=== PATIENT | female | born 1960 | race Caucasian/White ===

== ENCOUNTER 2022-04-01 15:23 | Outpatient (CLI) | payer OTHER, SELFPAY ==
--- OUTSIDE RECORDS SUMMARY | 2022-04-01 08:17 | XMS_ITS | Encounter Summary ---
:1960 Author Organization [facility] Address [address], [place] [address] Care Team Providers Name Role Phone Unavailable Primary Care Provider Unavailable Reason for Visit Procedure/Equipment (Routine) - Incomplete Specialty Diagnoses / Procedures Referred By Contact Refer red To Contact Procedures Provider, Foreign Images Foreign Image(S) Mammogram [address] [place] [address] Referral ID Status Reason Start Date Expiration Date Visits V isits Requested Authorized [id number] Incomplete 04/04/2017 07/04/2018 1 1 Encounter Details Date Type Department Care Team Description 06/01/2012 Imaging 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 If the results were provided, they will be located on the Me almas tab in the patient's chart. Foreign Images Provider RAD NON-REPORTABLES Performing Organization Address City/State/ZIP Code Phon e Number POCT PN POCT documented in this encounter Visit Diagnoses Not on filedocumented in this encounter
--- OUTSIDE RECORDS SUMMARY | 2022-04-01 08:17 | XMS_ITS ---
:1960 Author Care Team Providers Name Role Phone Jazzy Pino Primary Care Provider Unavailable Allergies Code Code System Name Reaction Severity Status Onset NKDA ? Medications Name Status Start Date Stop Date ? ? Baby Aspirin Active ? Not available calcium Active ? Not available Climara 0.025 mg/24 hr transdermal patch Active ? Not available estradiol 0.5 mg tablet Active ? Not avai lable Fish Oil Completed ? 02/02/2021 Multi Vitamin Active ? Not available simvastatin 40 mg tablet Completed ? 021 valacyclovir 500 mg tablet Active ? Not a vailable Notes: Estrogen OTC Problems Name Status Onset Date Source ? Hyperlipidemia Active ? ? Cyst of Ovary Active ? ? Atypical Glandular Cells on Cervical Papanicolaou Smear Active ? History Procedures Date Name Performed by ? 02/15/2013 Hysterectomy NOS Information not avai lable Notes: *Surgery Date: 02/15/2013 ? Removal of Ovary(s) Information not avai lable Notes: *Surgery Date: 02/15/13 *Notes: L side ? Endometrial Ablation Information not regina ilable Notes: *Surgery Date: 01/21/06 *Notes: N ovasure ? Gynecological Laparoscopy NEC Informatio n not available Notes: *Surgery Date: 1991 ? Ligation of Bilateral Fallopian Tubes In formation not available Notes: *Surgery Date: 1988 ? Salpingectomy NOS Information not avai lable Notes: *Surgery Date: 02/15/13 *Notes: b ilat 07/03/2020 MAMMO, Screening, Bilateral Information not available Results Lab Results None recorded. Past Encounters 02/02/2021 Gynecologic Examination; Menopausal Synd joya; Ulcer of Mouth Jazzy Pino MD: [facility], [address], [place] [address], Ph. Social History Tobacco Smoking Status Never Smoker Vaccine List Vaccine Type influenza, injectable, quadrivalent 04/17/2020 Notes: No Covid vaccines per pt Plan of Care Reminders Provider Appointments None recorded. ? ? Lab None recorded. ? ? Referral None recorded. ? ? Procedures None recorded. ? ? Surgeries None recorded. ? ? Imaging None recorded. ? ? Vitals 02/02/2021 09:00AM G_ANNUAL EXAM Height Weight BMI Blood Pressure 5 ft 2.25 in 147.2 lbs 26.7 kg/m2 122/76 mm[Hg] 08/30/2019 Height Weight BMI Blood Pressure 5 ft 4.44 in 151 lbs 25.52 kg/m2 122/74 mm[Hg] 04/07/2018 Height Weight BMI Blood Pressure 5 ft 2.52 in 153 lbs 27.54 kg/m2 126/74 mm[Hg] 02/28/2017 Height Weight BMI Blood Pressure 5 ft 2.52 in 156 lbs 28.08 kg/m2 125/81 mm[Hg] 11/07/2015 Height Weight BMI Blood Pressure 5 ft 2.04 in 147 lbs 26.89 kg/m2 148/86 mm[Hg] 07/25/2014 Height Weight BMI Blood Pressure 5 ft 2.76 in 154 lbs 27.50 kg/m2 118/72 mm[Hg]
--- OUTSIDE RECORDS SUMMARY | 2022-04-01 08:17 | XMS_ITS | Encounter Summary ---
:1960 Author Organization [facility] Address [address] [address] Care Team Providers Name Role Phone Unavailable Primary Care Provider Unavailable Reason for Visit Procedure/Equipment (Routine) - Incomplete Specialty Diagnoses / Procedures Referred By Contact Refer red To Contact Procedures Provider, Foreign Images Foreign Image(S) Mammogram [address] [place] [address] Referral ID Status Reason Start Date Expiration Date Visits V isits Requested Authorized [id number] Incomplete 04/04/2017 07/04/2018 1 1 Encounter Details Date Type Department Care Team Description 03/17/2010 Imaging 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 documented in this encounter Results Foreign Image(S) Mammogram (03/17/2010 2:00 PM CDT) Specimen (Source) Anatomical Location Collection Method / [...]
--- OUTSIDE RECORDS SUMMARY | 2022-04-01 08:17 | XMS_ITS | Clinical Summary ---
:1960 Author Organization [facility] Address [address] [place] [address] Care Team Providers Name Role Phone Unavailable Primary Care Provider Unavailable Source Comments You are receiving this document as you are listed as the primary care provider,follow-up provider, or the patient has been referred to you for consultation.This is in compliance with the Medicare and Medicaid EHR Incentive Program,which states Providers who transition their patient to another setting of careor provider of care or refers their patient to another provider of care shouldprovide summarycare record for each transition of care or referral. [facility] Family History Medical History Relation Name Comments Cancer, Breast Negative Family History Social History Tobacco Use Types Packs/Day Years Used Date Smoking Tobacco: Never Assessed Sex Assigned at Date Recorded Not on file Plan of Treatment Health Maintenance Due Date Last Done Comments Cervical Cancer Screening 1960 Due Colon Cancer Screening Plan 1960 Due Hep C Screening (Preventive 1960 Services) COVID-19 Vaccine (#1) 04/15/1962 HIV Screening (Preventive 1977 Services) Adult Preventive Visit 10/14/1979 Cholesterol 2006 Zoster/Shingles (1 of 2) 10/14/2011 DTaP/Tdap/Td (2 - Tdap) 11/13/2020 11/13/2010 Mammogram 07/02/2021 07/02/2020, 04/10/2019, 04/24/2018, Additional history exists Influenza (#1) 2022 05/25/2020 HepA Aged Out No longer eligib le based on patient 's age to complete this topic HepB Aged Out No longer eligib le based on patient 's age to complete this topic Hib Aged Out No longer eligib le based on patient 's age to complete this topic IPV (Polio) Aged Out No longer eligib le based on patient 's age to complete this topic MCV4 Aged Out No longer eligib le based on patient 's age to complete this topic Pneumococcal Aged Out No longer eligib le based on patient 's age to complete this topic Insurance Payer Benefit Plan / Subscriber ID Effective Dates Phone Addre ss Type Group ÓSCAR CANTRELL [id number] 2020-Prese [phone] [address] [place] [address]
--- OUTSIDE RECORDS SUMMARY | 2022-04-01 08:17 | XMS_ITS | Clinical Summary ---
:1960 Author Organization [facility] [place] [address] Care Team Providers Name Role Phone Ryan Gimenez MD Primary Care Provider Allergies No known active allergies Medications Medication Sig Dispensed Refills Start Date End Date Status IBUPROFEN 200 MG TAB four every 4-6 0 08/16/2007 Active hours as needed mv,Ca,yfg-UW-luhvhe Take by mouth. 0 02/08/2013 Active no.187 (ESTROVEN MAXIMUM STRENGTH) 200 mcg Tab simvastatin (ZOCOR) 40 TAKE 1 TABLET ONCE 90 tablet 0 09/26/19 14 Active mg tablet DAILY WITH EVENING MEAL naproxen (NAPROSYN) Take 1 tab by 60 tablet 0 05/28/2015 Active 500 mg tablet mouth with breakfast, and 1 tab with dinner (twice a day with food) for 7-10 days, then use as needed. naproxen (NAPROSYN) Take 1 tab with 60 tablet 0 05/28/2015 Active 500 mg tablet breakfast, and 1 tab with dinner (twice a day with food) for 7-10 days, then as needed Active Problems Problem Noted Date Vitamin D deficiency 12/18/2010 Mixed hyperlipidemia 11/13/2010 Cervicalgia 08/16/2007 Excessive or frequent menstruation 01/14/2006 Immunizations Name Administration Dates Next Due Tdap 11/13/2010 Family History Medical History Relation Name Comments Diabetes Father Heart Disease Maternal Grandmother Relation Name Status Comments Father Maternal Grandmother Social History Tobacco Use Types Packs/Day Years Used Date Never Smoker Alcohol Use Standard Drinks/Week Comments Yes 2.5 (1 standard drink = 0.6 oz pure alco hol) 3 glasses wine Sex Assigned at Date Recorded Not on file Obstetrics History Last Filed Vital Signs Vital Sign Reading Time Taken Comments Blood Pressure 132/70 06/16/2015 1:54 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 Pulse 71 06/16/2015 1:54 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 Temperature 36.6 ??C (97.8 ??F) 02/08/2013 3:55 PM CDT Respiratory Rate 18 06/16/2015 1:54 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 Oxygen Saturation - - Inhaled Oxygen Concentration - - Weight 68.9 kg (152 lb) 02/08/2013 3:55 PM CDT Height 158.8 cm (5' 2.5) 02/08/2013 3:55 PM CDT Body Mass Index 27.36 02/08/2013 3:55 PM CDT Plan of Treatment Health Maintenance Due Date Last Done Comments COVID-19 vaccine series (#1) 04/15/1962 Depression screening for age 12+ 1973 BMI (ht and wt on same day) for 10/14/1979 age 18+ Hepatitis C screening for age 0310/14/1979 18-79 Zoster (shingles) series for age 0310/14/2011 50+ (1 of 2) Pap test for age 21-65 01/15/2013 01/15/2010 Mammogram for age 45-75 08/18/2013 08/18/2012 (Completed ou tside of [facility]), 01/15/2010 Lipids for age 45-75 12/22/2016 12/23/2011, 11/13/2010, 09/15/2009, Additional history exists Tetanus booster 11/13/2020 11/13/2010 Influenza for age 50-64 03/18/2022 Colonoscopy through age 75 10/16/2022 10/16/2012 (Completed outside of [facility]) Tdap Completed 11/13/2010 Results Not on filefrom Last 3 Months Insurance Payer Benefit Plan / Subscriber ID Effective Dates Phone Addre ss Type Group [facility] [id number] 2019-Present [address] KAMILAH SCHNEIDER [address] Care 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
--- OUTSIDE RECORDS SUMMARY | 2022-04-01 08:17 | XMS_ITS | Encounter Summary ---
:1960 [facility] Address [address], [place] [address] Care Team Providers Name Role Phone Unavailable Primary Care Provider Unavailable Reason for Visit Reason Comments Appt. Needed Encounter Details Date Type Department Care Team Description 09/01/2012 Telephone Specialty [facility] [address] Alvarado MD Appt. Needed Gastroenterology [address] [place] [address] [place], [place] [id number] [phone] Social History Tobacco Use Types Packs/Day Years Used Date Smoking Tobacco: Never Assessed Sex Assigned at Date Recorded Not on file documented as of this encounter Nursing Notes Sidney Doherty - 09/05/2012 10:25 AM CST received order from Dr Guy's office at [facility] called pt and LVM please see order Toña Main RN - 09/04/2012 3:56 PM CST Noemy from Dr. Pino's office called back and stated they did not do referral orders since they are a specialty clinic and order should come from primary. Spoke to pt who was very upset at this, stated Dr. Pino was the one who wanted her to have the procedure. She will speak directly to Dr. Pino and see what can be done about obtaining an order. Toña Main RN - 09/04/2012 2:52 PM CST Call placed to Dr. Pino's office and msg left with her nurse, our fax # and scheduling # given. They will fax when available or call if any questions. DEVELOPER Precious Vasquez - 09/01/2012 3:56 PM CST Pt contacted GI dept to schedule a screening colonoscopy. Order needed from Dr. Jazzy Pino, [facility] in [place] [phone]. DEVELOPER documented in this encounter Plan of Treatment Not on filedocumented as of this encounter Visit Diagnoses Not on filedocumented in this encounter
--- OUTSIDE RECORDS SUMMARY | 2022-04-01 08:17 | XMS_ITS | Encounter Summary ---
:1960 Author Organization [facility] Address [address], [place] [address] Care Team Providers Name Role Phone Unavailable Primary Care Provider Unavailable Reason for Visit Procedure/Equipment (Routine) - Incomplete Specialty Diagnoses / Procedures Referred By Contact Refer red To Contact Diagnoses Visit for screening mammogram Jazzy Pino MD Procedures MM Mammogram Screening Bilat W 3D Jj W CAD MM Mammogram Screening Bilat W CAD [address] [place] [address] Referral ID Status Reason Start Date Expiration Date Visits V isits Requested Authorized [id number] Incomplete 02/15/2018 05/17/2019 1 1 Encounter Details Date Type Department Care Team Description 04/13/2018 Imaging [facility] Event Mammogra phy Jazzy Pino MD Visit for screening [address] [facility] [address] [place] [address] [place] [address] [phone] Social History Tobacco Use Types Packs/Day Years Used Date Smoking Tobacco: Never Assessed Sex Assigned at Date Recorded Not on file documented as of this encounter Plan of Treatment Not on filedocumented as of this encounter Visit Diagnoses Diagnosis Visit for screening mammogram Other screening mammogram documented in this encounter
--- OUTSIDE RECORDS SUMMARY | 2022-04-01 08:17 | XMS_ITS | Encounter Summary ---
:1960 Author Organization [facility] Address [address] [address] Care Team Providers Name Role Phone Unavailable Primary Care Provider Unavailable Reason for Visit Procedure/Equipment (Routine) - Incomplete Specialty Diagnoses / Procedures Referred By Contact Refer red To Contact Diagnoses Visit for screening mammogram Jazzy Pino MD Procedures MM Mammogram Screening Bilat W CAD [address] [place] [address] Referral ID Status Reason Start Date Expiration Date Visits V isits Requested Authorized [id number] Incomplete 02/11/2017 05/13/2018 1 1 Encounter Details Date Type Department Care Team Description 03/29/2017 Imaging [facility] Event Mammogra phy Jazzy Pino MD Visit for screening [facility] [address] [place] [address] [place] [address] [phone] Social History Tobacco Use Types Packs/Day Years Used Date Smoking Tobacco: Never Assessed Sex Assigned at Date Recorded Not on file documented as of this encounter Plan of Treatment Not on filedocumented as of this encounter Procedures Procedure Name Priority Date/Time Associated Diagnosis Comme nts MM MAMMOGRAM Routine 03/29/2017 9:33 AM Visit for screening Re sults for this SCREENING BILAT W CDT mammogram procedure are in CAD the results section. documented in this encounter Results MM Mammogram Screening Bilat W CAD (03/29/2017 9:33 AM CDT) Anatomical Region Laterality Modality Breast Bilateral Mammography Specimen (Source) Anatomical Location Collection Method / Collectio n Time Received Time / Laterality Volume Impressions 04/04/2017 10:40 AM CDT : ACR BI-RADS Category 1: Negative RECOMMENDATION: Follow Up Imaging in 12 months - Bilateral The results and recommendations of this examination will be communicated to the patient. Narrative 04/04/2017 10:40 AM CDT MM MAMMOGRAM SCREENING BILAT W CAD performed on 03/29/17 Compared to: 12/17/2015 Foreign Image(S) Mammogram, 06/01/2012 Foreign Image(S) Mammogram, and 04/27/2011 Forei gn Image(S) Mammogram FINDINGS: Bilateral screening mammogram was performed with the assistance of Computer-Aided Detection. The breasts have scattered areas of fibroglandular density. There is no radiographic evidence of mal ignancy. ?? Jazzy Pino MD RAD [place] documented in this encounter Visit Diagnoses Diagnosis Visit for screening mammogram Other screening mammogram documented in this encounter
--- OUTSIDE RECORDS SUMMARY | 2022-04-01 08:17 | XMS_ITS | Encounter Summary ---
:1960 Author Organization [facility] Address [address], [place] [address] Care Team Providers Name Role Phone Unavailable Primary Care Provider Unavailable Reason for Visit Procedure/Equipment (Routine) - Incomplete Specialty Diagnoses / Procedures Referred By Contact Refer red To Contact Diagnoses Visit for screening mammogram Jazzy Pino MD Procedures MM Mammogram Screening Bilat W 3D Jj W CAD MM Mammogram Screening Bilat W CAD [address] [place] [address] Referral ID Status Reason Start Date Expiration Date Visits V isits Requested Authorized [id number] Incomplete 02/15/2018 05/17/2019 1 1 Encounter Details Date Type Department Care Team Description 04/24/2018 Imaging [facility] Event Mammogra phy Jazzy Pino MD Visit for screening [address] [facility] [address] [place] [address] [place] [address] [phone] Social History Tobacco Use Types Packs/Day Years Used Date Smoking Tobacco: Never Assessed Sex Assigned at Date Recorded Not on file documented as of this encounter Plan of Treatment Not on filedocumented as of this encounter Procedures Procedure Name Priority Date/Time Associated Diagnosis Comme nts MM MAMMOGRAM Routine 04/24/2018 3:23 PM Visit for screening Re sults for this SCREENING BILAT W CDT mammogram procedure are in 3D JJ W CAD the results section. documented in this encounter Results MM Mammogram Screening Bilat W 3D Jj W CAD (04/24/2018 3:23 PM CDT) Anatomical Region Laterality Modality Breast Bilateral Mammography Specimen (Source) Anatomical Location Collection Method / Collectio n Time Received Time / Laterality Volume Impressions 04/25/2018 9:20 AM CDT : ACR BI-RADS Category 1: Negative RECOMMENDATION: Follow Up Imaging in 12 months - Bilateral The results and recommendations of this examination will be communicated to the patient. Narrative 04/25/2018 9:20 AM CDT MM MAMMOGRAM SCREENING BILAT W 3D JJ W CAD performed on 04/24/18 Compared to: 03/29/2017 MM Mammogram Scr eening Bilat W CAD, 12/17/2015 Foreign Image(S) Mammogram, and 06/01/20 Foreign Image(S) Mammogram FINDINGS: Bilateral screening mammogram was performed with the assistance of Computer-Aided Detection and breast t omosynthesis. The breasts have scattered areas of fibroglandular densit y. There is no radiographic evidence of mal ignancy. ?? Jazzy Pino MD RAD [place] documented in this encounter Visit Diagnoses Diagnosis Visit for screening mammogram Other screening mammogram documented in this encounter
--- OUTSIDE RECORDS SUMMARY | 2022-04-01 08:17 | XMS_ITS | Encounter Summary ---
:1960 Author Organization [facility] Address [address], [place] [address] Care Team Providers Name Role Phone Unavailable Primary Care Provider Unavailable Reason for Visit Procedure/Equipment (Routine) - Incomplete Specialty Diagnoses / Procedures Referred By Contact Refer red To Contact Procedures Provider, Foreign Images Foreign Image(S) Mammogram [address] [place] [id number] Referral ID Status Reason Start Date Expiration Date Visits V isits Requested Authorized [id number] Incomplete 04/04/2017 07/04/2018 1 1 Encounter Details Date Type Department Care Team Description 12/17/2015 Imaging 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 documented in this encounter Results Foreign Image(S) Mammogram (12/17/2015 2:00 PM CDT) Specimen (Source) Anatomical Location [...]
--- OUTSIDE RECORDS SUMMARY | 2022-04-01 08:17 | XMS_ITS | Encounter Summary ---
:1960 Author Organization [facility] Address [address], [place] [address] Care Team Providers Name Role Phone Unavailable Primary Care Provider Unavailable Reason for Visit Procedure/Equipment (Routine) - Incomplete Specialty Diagnoses / Procedures Referred By Contact Refer red To Contact Diagnoses Visit for screening mammogram Jazzy Pino MD Procedures MM Mammogram Screening Bilat W 3D Jj W CAD MM Mammogram Screening Bilat W CAD [address] [place] [address] Referral ID Status Reason Start Date Expiration Date Visits V isits Requested Authorized [id number] Incomplete 01/24/2019 04/24/2020 1 1 Encounter Details Date Type Department Care Team Description 04/10/2019 Ancillary Procedure [facility] Event Jazzy Pino Visit f or screening Mammography MD Claire mammogram [address] [facility] [address] [place] [address] [phone] Social History Tobacco Use Types Packs/Day Years Used Date Smoking Tobacco: Never Assessed Sex Assigned at Date Recorded Not on file documented as of this encounter Plan of Treatment Not on filedocumented as of this encounter Procedures Procedure Name Priority Date/Time Associated Diagnosis Comme nts MM MAMMOGRAM Routine 04/10/2019 8:44 AM Visit for screening Re sults for this SCREENING BILAT W CDT mammogram procedure are in 3D JJ W CAD the results section. documented in this encounter Results MM Mammogram Screening Bilat W 3D Jj W CAD (04/10/2019 8:44 AM CDT) Anatomical Region Laterality Modality Breast Bilateral Mammography Specimen (Source) Anatomical Location Collection Method / Collectio n Time Received Time / Laterality Volume Impressions 04/13/2019 3:33 PM CDT : ACR BI-RADS Category 1: Negative RECOMMENDATION: Follow Up Imaging in 12 months - Bilateral The results and recommendations of this examination will be communicated to the patient. Narrative 04/13/2019 3:33 PM CDT MM MAMMOGRAM SCREENING BILAT W 3D JJ W CAD performed on 04/10/19 Compared to: 04/24/2018 MM Mammogram Scr eening Bilat W 3D Jj W CAD and 03/29/2017 MM Mammogram Screening Bilat W CAD FINDINGS: Bilateral screening mammogram was performed with [...]
[2022-04-01 14:28] LABS: Aspartate Amino Transferase* 27 U/L (12-35); Cholesterol* 219 mg/dL (90-199); HDL Cholesterol* 32 mg/dL (>=50); LDL Cholesterol Calculated 126 mg/dL (<100); Triglycerides* 305 mg/dL (40-149)
== END 2022-04-01 15:24 | disposition home or self-care (01) ==
PROVIDERS: PCP Emergency Medicine; Visit Provider Emergency Medicine
DX: Z00.00 Encounter for general adult medical examination without abnormal findings (principal); E11.9 Type 2 diabetes mellitus without complications; E78.5 Hyperlipidemia, unspecified; E78.1 Pure hyperglyceridemia; R74.01 Elevation of levels of liver transaminase levels
CPT/HCPCS: 80061; 84450

== ENCOUNTER 2023-04-13 10:40 | Outpatient (CLI) | payer OTHER, SELFPAY | END 2023-04-13 10:41 | disposition home or self-care (01) | PROVIDERS: PCP Emergency Medicine; Visit Provider Emergency Medicine | DX: Z00.00 Encounter for general adult medical examination without abnormal findings (principal); E78.1 Pure hyperglyceridemia; E78.5 Hyperlipidemia, unspecified; Z13.1 Encounter for screening for diabetes mellitus | CPT/HCPCS: 80048; 80061 ==

== ENCOUNTER 2023-04-26 14:27 | Outpatient (CLI) | payer OTHER, SELFPAY ==
[2023-04-26 15:51] VITALS: BP 134/74; PULSE 85; RESP 20
[2023-04-26] MEDS: PERFLUTREN LIPID MICROSPHERES 2 ML VIAL IV (15:53)
--- NOTE | 2023-04-26 16:02 | W.PM.STED ---
Stress Test Note Date Date Seen: 04/26/23 Date of test: 04/26/23 Providers Primary care provider: Poppy Beasley Stress test physician: Suzi Alcaraz Stress Test Note Stress test ordered: Stress Echo Indication for test: Shortness of breath Stress test medicine: Definity Results discussion: Resting EKG: Sinus rhythm, 82 beats per minute. Some artifact. No ischemic change. Resting blood pressure: 144/86. Stress test: Patient was exercised on the treadmill following standard Jesse protocol. Test was terminated due to patient becoming significantly dyspneic. She notes that she had no chest pain with this level of exercise but if she would have continued to push herself, would have gotten some of the right chest pain that she has been experiencing. Again, patient no chest pain today. Definity did need to be used for this test. She exercised to 8 minutes 11 seconds achieving 9.9 Mets. She had a maximum heart rate of 138 beats per minute which was 102% of a calculated target heart rate of 135. She had a maximum blood pressure of 154/84. Rate pressure product was 21,252. Patient did have ST segment changes inferiorly and lateral precordial leads that were concerning in nature for ischemic change. These had nearly resolved by time of discharge. They seem to subside as her sense of shortness of breath subsided. Echo images are pending. Impression: Subjectively equivocal but objectively positive EKG portion of this stress test. Follow up suggested: Patient states she has a follow-up echo scheduled, she should complete this. Her ordering physician should have a test results tomorrow or the day after. She is aware to limit activity to not push significant cardiopulmonary stress. She is discharged from here in stable condition. Await echo reading for full formal diagnostic report.
== END 2023-04-26 15:54 | disposition home or self-care (01) ==
LOC: STRESS 14:28
PROVIDERS: PCP Emergency Medicine; Visit Provider Family Medicine
DX: R06.02 Shortness of breath (principal)
CPT/HCPCS: 93016; 93325; 93351; Q9957

== ENCOUNTER 2023-05-24 07:08 | Outpatient (CLI) | payer OTHER, SELFPAY | END 2023-05-24 07:09 | disposition home or self-care (01) | LOC: OP CLINIC 07:08 | PROVIDERS: PCP Emergency Medicine; Visit Provider Surgery | DX: Z53.09 Procedure and treatment not carried out because of other contraindication (principal); R06.02 Shortness of breath ==

== ENCOUNTER 2023-05-27 09:54 | Outpatient (CLI) | payer OTHER, SELFPAY | END 2023-05-27 09:55 | disposition home or self-care (01) | LOC: RAD 09:55 | PROVIDERS: PCP Emergency Medicine; Visit Provider Emergency Medicine | DX: R06.02 Shortness of breath (principal); I34.0 Nonrheumatic mitral (valve) insufficiency; I35.1 Nonrheumatic aortic (valve) insufficiency | CPT/HCPCS: 93306 ==

== ENCOUNTER 2023-07-07 13:12 | Outpatient (CLI) | payer OTHER, SELFPAY | END 2023-07-07 13:13 | disposition home or self-care (01) | LOC: NFLDREF 07-08 11:31 | PROVIDERS: PCP Emergency Medicine; Referring Provider Emergency Medicine; Visit Provider Physician Assistant Medical | DX: R30.0 Dysuria (principal); N39.0 Urinary tract infection, site not specified | CPT/HCPCS: 87086; 87186 ==

== ENCOUNTER 2023-07-20 13:17 | Outpatient (CLI) | payer OTHER, SELFPAY ==
--- NOTE | 2023-07-20 13:30 | CRLHL7_ITS ---
For Patients: As a result of the Century Cures Act, medical imaging exams and procedure reports are released immediately into your electronic medical record. You may view this report before your referring provider. If you have questions, please contact your health care provider. DXA BONE MINERAL DENSITY STUDY Reason for exam: Family history osteoporosis, screening. Current height (in): 62. Weight (lb): 140. Menopause age: 62. Ethnicity: White. 1. Have you had a previous hip or vertebral fracture? No. 2. Have you had any fractures during your adult life which did not result from significant trauma (e.g., auto accident)? No. 3. Did either of your parents have a hip fracture? No. 4. Do you smoke? No. 5. Have you ever taken Glucocorticoids? No. 6. Do you have rheumatoid arthritis? No. 7. Do you have secondary osteoporosis? No. 8. Do you drink 3 or more alcoholic drinks per day? No. 9. Are you being treated for osteoporosis? No. 10. Have you ever taken any of the following medications: Actonel, Evista, Fosamax, Miacalcin, Reclast, Boniva, Forteo, HRT (i.e. estrogen/hormone therapy), Protelos, Prolia, Vitamin D, Calcium, other ??? please specify. ANSWER: No. 11. Do you have any of the following medical conditions: Anorexia or bulimia, asthma or emphysema, end stage renal disease, hyperparathyroidism, any seizure disorders, cancer, inflammatory bowel diseases, hysterectomy, other ??? please specify. ANSWER: No. 12. What was your maximum height (inches)? 62.5. 13. Do you perform weight bearing exercise regularly? No. 14. Do you regularly consume dairy products? Yes. 15. Do you drink caffeinated beverages? No. 16. At what age did your period start? 13. 17. Are you premenopausal? No. 18. How many full term pregnancies have you had? 3. 19. Have you ever missed your period for more than 6 months in a row (not including or menopause)? No. TECHNIQUE: Bone mineral density study was performed using the [employer]. FINDINGS: The results of the study expressed as bone mineral density (BMD) are as follows: Lumbar spine L1 to L4: BMD: 1.066 g/cm2. T-score: 0.2. Z-score: 1.7. Neck Left: BMD: 0.747 g/cm2. T-score: -0.9. Z-score: 0.4. Right: BMD: 0.718 g/cm2. T-score: -1.2. Z-score: 0.2. Total Left: BMD: 0.914 g/cm2. T-score: -0.2. Z-score: 0.8. Right: BMD: 0.905 g/cm2. T-score: -0.3. Z-score: 0.7. IMPRESSION: Osteopenia. *Comparison exams done prior to 12/2019 were performed on different unit, [employer]. FRAX 10-year Fracture Risk Major Osteoporotic Fracture: 7.8 percent Hip Fracture: 0.6 percent Reported Risk Factors: [place] () Neck BMD= 0.718, BMI = 25.6 Emigdio Simon M.D. Diagnostic Radiologist [email or web address] SONAM/Dictated by: Emigdio Simon MD @ 07/21/2023 10:50:00 AM (Electronically Signed)
--- NOTE | 2023-07-20 14:00 | CRLHL7_ITS ---
For Patients: As a result of the Cures Act, medical imaging exams and procedure reports are released immediately into your electronic medical record. You may view this report before your referring provider. If you have questions, please contact your health care provider. BILATERAL SCREENING MAMMOGRAM WITH COMPUTER-AIDED DETECTION AND TOMOSYNTHESIS TECHNIQUE: CC and MLO views were obtained. These mammographic images have been obtained using full-field digital technique. These mammographic images were interpreted with the benefit of computer-aided detection. Breast Tomosynthesis was used in this interpretation. COMPARISON FILM: 06/16/22, 07/02/20, 04/10/19. FINDINGS: There are scattered areas of fibroglandular density IMPRESSION: There is no radiographic evidence for malignancy. ASSESSMENT: BI-RADS Category 1: Negative RECOMMENDATION: Routine screening mammogram in 1 year. A lay language report of this examination will be provided to the patient. CHERYL KAM M.D. Diagnostic/Nuclear Medicine Radiologist [email or web address] CHELSEA:miki Transcribed: 3:03 p.mEric livingston/Dictated by: Chreyl Kam MD @ 07/28/2023 10:54:00 AM (Electronically Signed)
== END 2023-07-20 13:18 | disposition home or self-care (01) ==
LOC: RAD 13:19
PROVIDERS: PCP Emergency Medicine; Visit Provider Emergency Medicine
DX: Z12.31 Encounter for screening mammogram for malignant neoplasm of breast (principal); Z13.820 Encounter for screening for osteoporosis; M85.89 Other specified disorders of bone density and structure, multiple sites; Z82.62 Family history of osteoporosis
CPT/HCPCS: 77063; 77067; 77080

== ENCOUNTER 2023-09-01 11:47 | Outpatient (CLI) | payer OTHER, SELFPAY ==
--- OUTSIDE RECORDS SUMMARY | 2023-09-01 12:08 | XMS_ITS | Clinical Summary ---
Author Name Unknown Organization [facility] Address [place], [place] [address] Care Team Providers Care Adult Live In Caregiver Name Role Phone Poppy Beasley MD Primary Care Provider [phone] Allergies No known active allergies Medications Medication Sig Dispensed Refills Start Date End Date Status multivitamins-min erals-lutein (Multivitamin 50 Plus) tab tablet Take 1 Tablet by mouth once daily. 0 Active calcium carbonate/vitamin D3 (CALCIUM 600 WITH VITAMIN D3 ORAL) Take 2 Tablets by mouth once daily. 0 Active aspirin chewable 81 mg chewable tablet Chew 81 mg by mouth once daily in the evening. 0 Active atorvastatin (LIPITOR) 40 mg tabletIndications :Coronary artery disease of [place] heart with stable angina pectoris, unspecified vessel or lesion type (HC) Take 1 Tablet (40 mg) by mouth at bedtime. 30 Tablet 3 4 Active cholecalciferol (VITAMIN D3) 1,000 unit tablet Take 1,000 units by mouth once daily. 0 Active acetaminophen (TYLENOL EXTRA STRGTH) 500 mg tabletIndications :S/P CABG x 3 Take 2 Tablets (1,000 mg) by mouth every 6 hours if needed for Pain. Max acetaminophen dose: 4000mg in 24 hrs. 0 4 Active amiodarone (CORDARONE) 200 mg tabletIndications :Postoperative atrial fibrillation (HC) Take 1 Tablet (200 mg) by mouth once daily for 28 days. 28 Tablet 0 4 09/25/19 24 Active metoprolol tartrate (LOPRESSOR) 25 mg tabletIndications :S/P CABG x 3,Postoperative atrial fibrillation (HC) Take 1 Tablet (25 mg) by mouth two times daily. 60 Tablet 2 4 Active oxyCODONE (ROXICODONE) 5 mg immediate release tabletIndications :S/P CABG x 3 Take one-half to one Tablet (2.5-5 mg) by mouth every 6 hours if needed for Pain (For Moderate Pain.). 10 Tablet 0 4 Active sennosides-docusa te (SENOKOT S) (8.6-50 mg) tabletIndications :S/P CABG x 3 Take 2 Tablets by mouth 2 times daily if needed for Constipation. 0 4 Active clopidogreL (PLAVIX) 75 mg tabletIndications :S/P CABG x 3 Take 1 Tablet (75 mg) by mouth once daily. 85 Tablet 0 4 11/20/19 24 Active mv,Ca,min-FA-herb al no.187 (ESTROVEN MAXIMUM STRENGTH) 200 mcg Tab Take 1 Tablet by mouth once daily. 0 3 08/18/19 24 Discontinued(P harmacist change per medication history (E-cancel not sent)) metoprolol succinate (TOPROL XL) 25 mg Sustained-Release tabletIndications :Coronary artery disease of [place] heart with stable angina pectoris, unspecified vessel or lesion type (HC) Take 1 Tablet (25 mg) by mouth once daily. 30 Tablet 2 4 08/27/19 24 Discontinued(* IP Discontinued) Active Problems Problem Noted Date Diagnosed Date Aspiration pneumonia 08/22/2023 Postoperative atrial fibrillation 08/20/2023 S/P CABG x 3 08/18/2023 Overview: Left internal mammary artery to left anterior descending artery, sequential vein graft to OM1 and OM 3 - Dr Trent Acute blood loss anemia 08/18/2023 Coagulopathy 08/18/2023 Thrombocytopenia 08/18/2023 Angina of effort 07/27/2023 Vitamin D deficiency 12/18/2010 Mixed hyperlipidemia 11/13/2010 Cervicalgia 08/16/2007 Excessive or frequent menstruation 01/14/2006 Encounters Date Type Department Care Team Description 08/18/2023 7:26 AM MACHINE CLOTHING WORKER Anesthesia Event [facility] [address] [place] [address] Hunter Frye Jr., MD Swenson, Emily A, CRNA 08/18/2023 7:00 AM MACHINE CLOTHING WORKER - 08/18/2023 1:18 PM MACHINE CLOTHING WORKER Surgery [facility] [address] [place] [address] Troy Trent MD INTRA-OPEARTIVE PERFORMED BY DR. FRYE, STERNOTOMY, TAKEDOWN OF LEFT INTERNAL MAMMARY ARTERY, BYPASS CORONARY ARTERY X3 , ENDOSCOPIC SAPHENOUS VEIN HARVEST OF THE LEFT LEG, TEMPORARY PLACEMENT OF VENTRICLAR PACING WIRES. 08/18/2023 6:05 AM MACHINE CLOTHING WORKER - 08/27/2023 3:18 PM MACHINE CLOTHING WORKER Hospital Encounter [facility] [address] [place] [address] Troy Trent MD S/P CABG x 3 (Primary Dx); Postoperative atrial fibrillation (HC) Discharge Disposition: Home Self Care 08/18/2023 Travel 08/15/2023 9:36 AM MACHINE CLOTHING WORKER - 08/15/2023 11:59 PM MACHINE CLOTHING WORKER Hospital Encounter [facility] [address] [place] [address] Flower Beebe PA Reilly, Chelsey A Coronary artery disease, unspecified vessel or lesion type, unspecified whether angina present, unspecified whether [place] or transplanted heart 08/15/2023 Travel 08/08/2023 1:30 PM MACHINE CLOTHING WORKER Phone Office Visit [facility] [address] [phone] Leila Verdin PA Education (Pre [facility] Education ) 08/04/2023 Travel 08/01/2023 Telephone [facility] [address] [phone] Raymundo Figueroa MD Cardiology Appointment 07/27/2023 5:44 AM MACHINE CLOTHING WORKER - 07/27/2023 12:55 PM MACHINE CLOTHING WORKER Hospital Encounter [facility] [address] [place] [address] Raymundo Figueroa MD Coronary artery disease of [place] heart with stable angina pectoris, unspecified vessel or lesion type (HC) (Primary Dx); Cardiovascular symptoms Discharge Disposition: Home Self Care 07/27/2023 Orders Only [facility] [address] [place] [address] Flower Beebe PA <No scans attached> 07/27/2023 Travel 07/19/2023 Telephone [facility] [address] [place] [address] Margo Sierra RN Angio Teach 06/30/2023 1:50 PM MACHINE CLOTHING WORKER - 06/30/2023 11:59 PM MACHINE CLOTHING WORKER Hospital Encounter [facility] [address] [place] [address] Darleen Johnston MD Chest pain, unspecified type 06/30/2023 Travel 06/03/2023 1:30 PM MACHINE CLOTHING WORKER Office Visit [facility] & [address] [address] Darleen Johnston MD 06/03/2023 Travel from Last 3 Months Immunizations Name Administration Dates Next Due Tdap 11/13/2010 Family History Medical History Relation Name Comments Diabetes Father Heart Disease Maternal Grandmother Relation Name Status Comments Father Maternal Grandmother Social History Tobacco Use Types Packs/Day Years Used Date Smoking Tobacco: Never Alcohol Use Standard Drinks/Week Comments Yes 2.5 (1 standard drink = 0.6 oz p ure alcohol) 3 glasses wine Social Connections Answer Date Recorded Frequency of Communication with Friends and Fami ly Not on file 06/03/2023 Sex and Gender Information Value Date Recorded Sex Assigned at Not on file Gender Identity Not on file Sexual Orientation Not on file Obstetrics History Last Filed Vital Signs Vital Sign Reading Time Taken Comments Blood Pressure 135/71 08/27/2023 12:00 PM MACHINE CLOTHING WORKER Pulse 73 08/27/2023 12:00 PM MACHINE CLOTHING WORKER Temperature 36.6 ??C (97.9 ??F) 08/27/2023 12:[address] Respiratory Rate 14 08/27/2023 12:00 PM MACHINE CLOTHING WORKER Oxygen Saturation 93% 08/27/2023 12:00 PM MACHINE CLOTHING WORKER Inhaled Oxygen Concentration - - Weight 68.2 kg (150 lb 3.9 oz) 08/26/2023 6:00 A M MACHINE [employer]OTHING WORKER Height 160 cm (5' 3) 08/19/2023 6:00 AM MACHINE CLOTHING WORKER Body Mass Index 26.61 08/19/2023 6:00 AM MACHINE CLOTHING WORKER Plan of Treatment Health Maintenance Due Date Last Done Comments COVID-19 vaccine series (#1) 04/15/1962 Pneumococcal series for age 6-64 (1 of 2 - PCV) 10/14/1967 Depression screening for age 12+ 1973 HIV for age 15-65 1976 BMI (ht and wt on same day) for age 18+ 10/14/1979 Hepatitis C screening for ag e 18-79 10/14/1979 Zoster (shingles) series for age 50+ (1 of 2) 10/14/2011 Pap test for age 21-65 01/15/2013 01/15/2010 Mammogram for age 45-75 08/18/2013 08/18/19 13 (Completed outside of [facility]), 01/15/2010 Tetanus booster 11/13/2020 11/13/2010 Colonoscopy through age 75 10/16/202210/16 (Completed outside of [facility]) Influenza for age 50-64 03/18/2023 Lipids for age 45-75 08/20/2028 08/20/2023, 12/23/2011, 11/13/2010, Additional history exists Tdap Completed 11/13/2010 Procedures Procedure Name Priority Date/Time Associated Diagnosis Comments XR CHEST 2 VIEWS PA AND LATERAL Routine 08/27/2023 1:46 PM MACHINE [employer]OTHING WORKER XR CHEST 1 VIEW PORTABLE Routine 08/27/2023 8:18 AM MACHINE CLOTHING WORKER SCAN-CARDIAC STRIP 08/27/2023 7: 59 AM MACHINE CLOTHING WORKER CBC W PLT NO DIFF Early AM 08/27/2023 7:0 6 AM MACHINE CLOTHING WORKER BASIC METABOLIC PANEL Early AM 08/27/2023 7:06 AM MACHINE CLOTHING WORKER HEPATIC FUNCTION PANEL Early AM 7:06 AM MACHINE CLOTHING WORKER PROTIME-INR Early AM 08/27/2023 7:06 AM MACHINE CLOTHING WORKER POTASSIUM Today 08/26/2023 6:46 PM MACHINE CLOTHING WORKER GLUCOSE METER Timed 08/26/2023 11:46 AM MACHINE CLOTHING WORKER XR CHEST 1 VIEW PORTABLE Routine 08/26/2023 8:33 AM MACHINE CLOTHING WORKER SCAN-CARDIAC STRIP 08/26/2023 7: 37 AM MACHINE CLOTHING WORKER HEPATIC FUNCTION PANEL Add On 7:33 AM MACHINE CLOTHING WORKER CBC W PLT NO DIFF Today 08/26/2023 7:3 3 AM MACHINE CLOTHING WORKER PROTIME-INR Today 08/26/2023 7:33 AM MACHINE CLOTHING WORKER BASIC METABOLIC PANEL Early AM 08/26/2023 7:33 AM MACHINE CLOTHING WORKER GLUCOSE METER Timed 08/26/2023 7:25 AM MACHINE CLOTHING WORKER CBC W PLT NO DIFF Early AM 08/26/2023 5:5 4 AM MACHINE CLOTHING WORKER PROTIME-INR Early AM 08/26/2023 5:54 AM MACHINE CLOTHING WORKER GLUCOSE METER Timed 08/25/2023 9:50 PM MACHINE CLOTHING WORKER HEMOGLOBIN Timed 08/25/2023 9:12 PM MACHINE CLOTHING WORKER SCAN-CARDIAC STRIP 08/25/2023 7: 44 PM MACHINE CLOTHING WORKER XR CHEST 1 VIEW PORTABLE Routine 08/25/2023 3:23 PM MACHINE CLOTHING WORKER PROTIME-INR Today 08/25/2023 3:18 PM MACHINE CLOTHING WORKER HEMOGLOBIN Today 08/25/2023 3:[address] CHEST TUBE PLACEMENT LEFT Routine 08/25/2023 2:32 PM MACHINE CLOTHING WORKER ANAEROBIC CULTURE Today 08/25/2023 2:0 0 PM MACHINE CLOTHING WORKER BODY FLUID CULTURE,STAIN (AEROBIC) Today 08/25/2023 2:00 PM MACHINE CLOTHING WORKER GLUCOSE METER Timed 08/25/2023 12:14 PM MACHINE CLOTHING WORKER TRANSFUSE PLASMA (NURSE COMMUNICATION ORDER) STAT 08/25/2023 12:08 PM MACHINE CLOTHING WORKER PROTIME-INR NIMISHA 08/25/2023 12:02 PM MACHINE CLOTHING WORKER PLASMA ORDER STAT 08/25/2023 11:49 AM MACHINE CLOTHING WORKER PLASMA SNGL DON FFPEA UNIT STAT 08/25/2023 11:32 AM MACHINE CLOTHING WORKER PROTIME-INR STAT 08/25/2023 10:07 AM MACHINE CLOTHING WORKER TRANSFUSE PLASMA (NURSE COMMUNICATION ORDER) STAT 08/25/2023 9:09 AM MACHINE CLOTHING WORKER PLASMA ORDER STAT 08/25/2023 8:36 AM MACHINE CLOTHING WORKER PLASMA SNGL DON FFPEA UNIT STAT 08/25/2023 8:36 AM MACHINE CLOTHING WORKER SCAN-CARDIAC STRIP 08/25/2023 7: 57 AM MACHINE CLOTHING WORKER GLUCOSE METER Timed 08/25/2023 7:45 AM MACHINE CLOTHING WORKER BASIC METABOLIC PANEL Early AM 08/25/2023 6:45 AM MACHINE CLOTHING WORKER CBC W PLT NO DIFF Early AM 08/25/2023 6:4 5 AM MACHINE CLOTHING WORKER LIPOPROTEIN A Early AM 08/25/2023 6:45 AM MACHINE CLOTHING WORKER HEPATIC FUNCTION PANEL Early AM 6:45 AM MACHINE CLOTHING WORKER APTT Timed 08/25/2023 6:45 AM MACHINE CLOTHING WORKER PROTIME-INR Early AM 08/25/2023 6:45 AM MACHINE CLOTHING WORKER SCAN-CARDIAC STRIP 08/25/2023 1: 34 AM MACHINE CLOTHING WORKER GLUCOSE METER Timed 08/24/2023 9:42 PM MACHINE CLOTHING WORKER SPUTUM CULTURE, STAIN Today 08/24/2023 9:05 PM MACHINE CLOTHING WORKER PROCALCITONIN Today 08/24/2023 6:23 PM MACHINE CLOTHING WORKER TRANSFUSE RBC (NURSE COMMUNICATION ORDER) STAT 08/24/2023 5:24 [address] CHEST WO STAT 08/24/2023 4:54 PM MACHINE CLOTHING WORKER SCAN-CARDIAC STRIP 08/24/2023 3: 35 PM MACHINE CLOTHING WORKER RED BLOOD CELLS EA UNIT STAT 08/24/2023 3:20 PM MACHINE CLOTHING WORKER RBC W TYPE AND SCREEN STAT 08/24/2023 3:20 PM MACHINE CLOTHING WORKER XR CHEST 1 VIEW PORTABLE Routine 08/24/2023 2:29 PM MACHINE CLOTHING WORKER GLUCOSE METER Timed 08/24/2023 12:36 PM MACHINE CLOTHING WORKER HEMOGLOBIN STAT 08/24/2023 10:41 AM MACHINE CLOTHING WORKER GLUCOSE METER Timed 08/24/2023 7:59 AM MACHINE CLOTHING WORKER SCAN-CARDIAC STRIP 08/24/2023 7: 41 AM MACHINE CLOTHING WORKER MAGNESIUM Early AM 08/24/2023 3:28 AM MACHINE CLOTHING WORKER HEPATIC FUNCTION PANEL Early AM 3:28 AM MACHINE CLOTHING WORKER PROTIME-INR Early AM 08/24/2023 3:28 AM MACHINE CLOTHING WORKER BASIC METABOLIC PANEL Early AM 08/24/2023 3:28 AM MACHINE CLOTHING WORKER CBC W PLT NO DIFF Early AM 08/24/2023 3:2 8 AM MACHINE CLOTHING WORKER APTT Timed 08/24/2023 3:28 AM MACHINE CLOTHING WORKER SCAN-CARDIAC STRIP 08/24/2023 12:30 AM MACHINE CLOTHING WORKER SCAN-CARDIAC STRIP 08/23/2023 11:15 PM MACHINE CLOTHING WORKER GLUCOSE METER Timed 08/23/2023 10:04 PM MACHINE CLOTHING WORKER APTT Timed 08/23/2023 8:39 PM MACHINE CLOTHING WORKER GLUCOSE METER Timed 08/23/2023 4:33 PM MACHINE CLOTHING WORKER POTASSIUM Today 08/23/2023 3:21 PM MACHINE CLOTHING WORKER SCAN-CARDIAC STRIP 08/23/2023 2: 20 PM MACHINE CLOTHING WORKER APTT Today 08/23/2023 12:06 PM MACHINE CLOTHING WORKER GLUCOSE METER Timed 08/23/2023 12:01 PM MACHINE CLOTHING WORKER SCAN-CARDIAC STRIP 08/23/2023 9: 58 AM MACHINE CLOTHING WORKER GLUCOSE METER Timed 08/23/2023 8:07 AM MACHINE CLOTHING WORKER PROTIME-INR NIMISHA 08/23/2023 5:03 AM MACHINE CLOTHING WORKER APTT Early AM 08/23/2023 5:03 AM MACHINE CLOTHING WORKER PHOSPHORUS Early AM 08/23/2023 5:03 AM MACHINE CLOTHING WORKER MAGNESIUM Early AM 08/23/2023 5:03 AM MACHINE CLOTHING WORKER CBC W PLT NO DIFF Early AM 08/23/2023 5:0 3 AM MACHINE CLOTHING WORKER COMP METABOLIC PANEL Early AM 08/23/2023 5:03 AM MACHINE CLOTHING WORKER GLUCOSE METER Timed 08/22/2023 9:35 PM MACHINE CLOTHING WORKER GLUCOSE METER Timed 08/22/2023 5:56 PM MACHINE CLOTHING WORKER EKG 12 LEAD Today 08/22/2023 4:41 PM MACHINE CLOTHING WORKER XR CHEST 1 VIEW PORTABLE Routine 08/22/2023 1:17 PM MACHINE CLOTHING WORKER GLUCOSE METER Timed 08/22/2023 12:30 PM MACHINE CLOTHING WORKER POTASSIUM Timed 08/22/2023 10:09 AM MACHINE CLOTHING WORKER SCAN-CARDIAC STRIP 08/22/2023 8: 13 AM MACHINE CLOTHING WORKER GLUCOSE METER Timed 08/22/2023 6:09 AM MACHINE CLOTHING WORKER MAGNESIUM STAT 08/22/2023 4:24 AM MACHINE CLOTHING WORKER ARTERIAL BLOOD GAS STAT 08/22/2023 4: 24 AM MACHINE CLOTHING WORKER APTT Early AM 08/22/2023 4:24 AM MACHINE CLOTHING WORKER HEPATIC FUNCTION PANEL Early AM 4:24 AM MACHINE CLOTHING WORKER CALCIUM IONIZED HOSPITAL DRAW ONLY Early AM 08/22/2023 4:24 AM MACHINE CLOTHING WORKER LACTATE ARTERIAL Early AM 08/22/2023 4:24 AM MACHINE CLOTHING WORKER BASIC METABOLIC PANEL Early AM 08/22/2023 4:24 AM MACHINE CLOTHING WORKER CBC W PLT NO DIFF Early AM 08/22/2023 4:2 4 AM MACHINE CLOTHING WORKER GLUCOSE METER Timed 08/21/2023 8:53 PM MACHINE CLOTHING WORKER POTASSIUM Timed 08/21/2023 8:53 PM MACHINE CLOTHING WORKER APTT Timed 08/21/2023 8:53 PM MACHINE CLOTHING WORKER GLUCOSE METER Timed 08/21/2023 5:46 PM MACHINE CLOTHING WORKER POTASSIUM Timed 08/21/2023 3:13 PM MACHINE CLOTHING WORKER SCAN-CARDIAC STRIP 08/21/2023 2: 20 PM MACHINE CLOTHING WORKER APTT Timed 08/21/2023 1:58 PM MACHINE CLOTHING WORKER GLUCOSE METER Timed 08/21/2023 12:22 PM MACHINE CLOTHING WORKER POTASSIUM Today 08/21/2023 10:00 AM MACHINE CLOTHING WORKER XR CHEST 1 VIEW PORTABLE NIMISHA 08/21/2023 8:49 AM MACHINE CLOTHING WORKER GLUCOSE METER Timed 08/21/2023 6:22 AM MACHINE CLOTHING WORKER APTT Timed 08/21/2023 6:19 AM MACHINE CLOTHING WORKER ARTERIAL BLOOD GAS Timed 08/21/2023 5: 39 AM MACHINE CLOTHING WORKER MAGNESIUM NIMISHA 08/21/2023 4:06 AM MACHINE CLOTHING WORKER ARTERIAL BLOOD GAS Early AM 08/21/2023 4: 06 AM MACHINE CLOTHING WORKER LACTATE ARTERIAL Early AM 08/21/2023 4:06 AM MACHINE CLOTHING WORKER APTT Early AM 08/21/2023 4:06 AM MACHINE CLOTHING WORKER CALCIUM IONIZED HOSPITAL DRAW ONLY Early AM 08/21/2023 4:06 AM MACHINE CLOTHING WORKER BASIC METABOLIC PANEL Early AM 08/21/2023 4:06 AM MACHINE CLOTHING WORKER CBC W PLT NO DIFF Early AM 08/21/2023 4:0 6 AM MACHINE CLOTHING WORKER CK TOTAL Timed 08/21/2023 4:06 AM MACHINE CLOTHING WORKER TRIGLYCERIDES Timed 08/21/2023 4:06 AM MACHINE CLOTHING WORKER PROTIME-INR Early AM 08/21/2023 4:06 AM MACHINE CLOTHING WORKER XR CHEST 1 VIEW PORTABLE Routine 08/20/2023 11:39 PM MACHINE CLOTHING WORKER GLUCOSE METER Timed 08/20/2023 9:47 PM MACHINE CLOTHING WORKER APTT Timed 08/20/2023 9:46 PM MACHINE CLOTHING WORKER GLUCOSE METER Timed 08/20/2023 5:30 PM MACHINE CLOTHING WORKER ARTERIAL BLOOD GAS STAT 08/20/2023 3: 08 PM MACHINE CLOTHING WORKER APTT Timed 08/20/2023 3:08 PM MACHINE CLOTHING WORKER SPUTUM CULTURE, STAIN Timed 08/20/2023 1:37 PM MACHINE CLOTHING WORKER GLUCOSE METER Timed 08/20/2023 11:39 AM MACHINE CLOTHING WORKER URINE CULTURE Today 08/20/2023 9:38 AM MACHINE CLOTHING WORKER UA W/ SEDIMENT EXAM REFLEXED PER CRITERIA Today 08/20/2023 9:38 AM MACHINE CLOTHING WORKER ARTERIAL BLOOD GAS STAT 08/20/2023 9: 38 AM MACHINE CLOTHING WORKER LIPID PANEL Add On 08/20/2023 9:09 AM MACHINE CLOTHING WORKER CREATININE NIMISHA 08/20/2023 9:09 AM MACHINE CLOTHING WORKER BUN NIMISHA 08/20/2023 9:09 AM MACHINE CLOTHING WORKER HEMATOCRIT NIMISHA 08/20/2023 9:09 AM MACHINE CLOTHING WORKER HEMOGLOBIN NIMISHA 08/20/2023 9:09 AM MACHINE CLOTHING WORKER PLATELET COUNT NIMISHA 08/20/2023 9:09 AM MACHINE CLOTHING WORKER APTT NIMISHA 08/20/2023 9:09 AM MACHINE CLOTHING WORKER PROTIME-INR NIMISHA 08/20/2023 9:09 AM MACHINE CLOTHING WORKER BLOOD CULTURE Today 08/20/2023 9:05 AM MACHINE CLOTHING WORKER BLOOD CULTURE Today 08/20/2023 9:01 AM MACHINE CLOTHING WORKER MRSA/SA PCR Today 08/20/2023 8:03 AM MACHINE CLOTHING WORKER EKG 12 LEAD NIMISHA 08/20/2023 8:00 AM MACHINE CLOTHING WORKER XR CHEST 1 VIEW PORTABLE NIMISHA 08/20/2023 7:56 AM MACHINE CLOTHING WORKER ARTERIAL BLOOD GAS Timed 08/20/2023 7: 34 AM MACHINE CLOTHING WORKER INTUBATION Routine 08/20/2023 7:27 AM MACHINE CLOTHING WORKER ARTERIAL LINE Routine 08/20/2023 7:26 AM MACHINE CLOTHING WORKER EKG 12 LEAD STAT 08/20/2023 7:15 AM MACHINE CLOTHING WORKER GLUCOSE METER Timed 08/20/2023 5:57 AM MACHINE CLOTHING WORKER XR CHEST 1 VIEW PORTABLE Routine 08/20/2023 5:25 AM MACHINE CLOTHING WORKER TSH NIMISHA 08/20/2023 4:38 AM MACHINE CLOTHING WORKER BASIC METABOLIC PANEL STAT 08/20/2023 4:38 AM MACHINE CLOTHING WORKER PROCALCITONIN Early AM 08/20/2023 4:38 AM MACHINE CLOTHING WORKER MAGNESIUM Early AM 08/20/2023 4:38 AM MACHINE CLOTHING WORKER CBC W PLT NO DIFF Early AM 08/20/2023 4:3 8 AM MACHINE CLOTHING WORKER PROTIME-INR Early AM 08/20/2023 4:38 AM MACHINE CLOTHING WORKER LACTATE VENOUS STAT 08/20/2023 1:[address] CHEST WO STAT 08/20/2023 12:31 AM MACHINE CLOTHING WORKER EKG 12 LEAD STAT 08/20/2023 12:08 AM MACHINE CLOTHING WORKER COMPREHENSIVE BLOOD GAS VENOUS Timed 08/19/2023 11:14 PM MACHINE CLOTHING WORKER PROTIME-INR STAT 08/19/2023 10:52 PM MACHINE CLOTHING WORKER LACTATE VENOUS STAT 08/19/2023 10:52 PM MACHINE CLOTHING WORKER CBC W PLT NO DIFF STAT 08/19/2023 10:52 PM MACHINE CLOTHING WORKER GLUCOSE METER Timed 08/19/2023 10:05 PM MACHINE CLOTHING WORKER XR CHEST 1 VIEW PORTABLE STAT 08/19/2023 9:35 PM MACHINE CLOTHING WORKER SCAN-CARDIAC STRIP 08/19/2023 7: 13 PM MACHINE CLOTHING WORKER SCAN-CARDIAC STRIP 08/19/2023 7: 13 PM MACHINE CLOTHING WORKER SCAN-CARDIAC STRIP 08/19/2023 7: 13 PM MACHINE CLOTHING WORKER SCAN-CARDIAC STRIP 08/19/2023 7: 13 PM MACHINE CLOTHING WORKER SCAN-CARDIAC STRIP 08/19/2023 7: 12 PM MACHINE CLOTHING WORKER SCAN-CARDIAC STRIP 08/19/2023 7: 12 PM MACHINE CLOTHING WORKER SCAN-CARDIAC STRIP 08/19/2023 7: 12 PM MACHINE CLOTHING WORKER SCAN-CARDIAC STRIP 08/19/2023 7: 12 PM MACHINE CLOTHING WORKER EKG 12 LEAD Timed 08/19/2023 7:11 PM MACHINE CLOTHING WORKER GLUCOSE METER Timed 08/19/2023 6:16 PM MACHINE CLOTHING WORKER GLUCOSE METER Timed 08/19/2023 1:17 PM MACHINE CLOTHING WORKER SCAN-CARDIAC STRIP 08/19/2023 10:08 AM MACHINE CLOTHING WORKER SCAN-CARDIAC STRIP 08/19/2023 10:08 AM MACHINE CLOTHING WORKER XR ABDOMEN 1 VIEW PORTABLE Routine 08/19/2023 9:09 AM MACHINE CLOTHING WORKER EKG 12 LEAD Early AM 08/19/2023 8:45 AM MACHINE CLOTHING WORKER GLUCOSE METER Timed 08/19/2023 6:48 AM MACHINE CLOTHING WORKER GLUCOSE METER Timed 08/19/2023 5:09 AM MACHINE CLOTHING WORKER XR CHEST 1 VIEW PORTABLE Routine 08/19/2023 4:58 AM MACHINE CLOTHING WORKER GLUCOSE METER Timed 08/19/2023 3:06 AM MACHINE CLOTHING WORKER HEMATOCRIT Today 08/19/2023 3:06 AM MACHINE CLOTHING WORKER MAGNESIUM STAT 08/19/2023 3:06 AM MACHINE CLOTHING WORKER PLATELET COUNT STAT 08/19/2023 3:06 AM MACHINE CLOTHING WORKER [facility]ONIZED [facility]OSPITAL DRAW ONLY Early AM 08/19/2023 3:06 AM MACHINE CLOTHING WORKER PROTIME-INR Early AM 08/19/2023 3:06 AM MACHINE CLOTHING WORKER HEMOGLOBIN Early AM 08/19/2023 3:06 AM MACHINE CLOTHING WORKER BASIC METABOLIC PANEL Early AM 08/19/2023 3:06 AM MACHINE CLOTHING WORKER GLUCOSE METER Timed 08/19/2023 12:57 AM MACHINE CLOTHING WORKER GLUCOSE METER Timed 08/18/2023 10:57 PM MACHINE CLOTHING WORKER GLUCOSE METER Timed 08/18/2023 9:01 PM MACHINE CLOTHING WORKER GLUCOSE METER Timed 08/18/2023 7:56 PM MACHINE CLOTHING WORKER GLUCOSE METER Timed 08/18/2023 6:36 PM MACHINE CLOTHING WORKER GLUCOSE METER Timed 08/18/2023 3:57 PM MACHINE CLOTHING WORKER GLUCOSE METER Timed 08/18/2023 2:07 PM MACHINE CLOTHING WORKER EKG 12 LEAD STAT 08/18/2023 1:45 PM MACHINE CLOTHING WORKER ECHO KEITH INTRAOPERATIVE Routine 08/18/2023 1:07 PM MACHINE CLOTHING WORKER XR CHEST 1 VIEW PORTABLE STAT 08/18/2023 1:05 PM MACHINE CLOTHING WORKER CREATININE NIMISHA 08/18/2023 12:36 PM MACHINE CLOTHING WORKER FIBRINOGEN,QUANTITATIV E STAT 08/18/2023 12:36 PM MACHINE CLOTHING WORKER THROMBIN TIME STAT 08/18/2023 12:36 PM MACHINE CLOTHING WORKER PROTIME-INR STAT 08/18/2023 12:36 PM MACHINE CLOTHING WORKER APTT STAT 08/18/2023 12:36 PM MACHINE CLOTHING WORKER PLATELET COUNT STAT 08/18/2023 12:36 PM MACHINE CLOTHING WORKER MAGNESIUM STAT 08/18/2023 12:36 PM MACHINE CLOTHING WORKER POTASSIUM STAT 08/18/2023 12:36 PM MACHINE CLOTHING WORKER HEMOGLOBIN STAT 08/18/2023 12:36 PM MACHINE CLOTHING WORKER GLUCOSE METER Timed 08/18/2023 12:34 PM MACHINE CLOTHING WORKER HCHG KIT PR5 Routine 08/18/2023 12:17 PM MACHINE CLOTHING WORKER HCHG DRSG PR1 Routine 08/18/2023 12:17 PM MACHINE CLOTHING WORKER HCHG DRSG PR5 Routine 08/18/2023 12:17 PM MACHINE CLOTHING WORKER HCHG TUBING PR5 Routine 08/18/2023 12:17 PM MACHINE CLOTHING WORKER HCHG KIT MONITORING PR5 Routine 08/18/2023 12:17 PM MACHINE CLOTHING WORKER HCHG ANES US GUIDE FOR VASC ACCESS Routine 08/18/2023 12:17 PM MACHINE CLOTHING WORKER HCHG CATH INFUSION PR100 Routine 08/18/2023 12:17 PM MACHINE [employer] WORK[employer] CVC TRIPLE LUMEN Routine 08/18/2023 12:17 PM MACHINE [employer] [facility] KIT PR5 Routine 08/18/2023 12:17 PM MACHINE [employer] WORK[employer] [facility] DRSG PR5 Routine 08/18/2023 12:17 PM MACHINE [employer] WORK[employer] [facility] DRSG PR1 Routine 08/18/2023 12:17 PM MACHINE [employer] [facility] TUBING PR20 Routine 08/18/2023 12:17 PM MACHINE [employer] [facility] TUBING PR1 Routine 08/18/2023 12:17 PM MACHINE [employer] [facility] ANES US GUIDE FOR VASC ACCESS Routine 08/18/2023 12:17 PM MACHINE [employer] [facility] CATH PR5 Routine 08/18/2023 12:17 PM MACHINE [employer] WORKER TRANSFUSE CRYOPRECIPITATE (NURSE COMMUNICATION ORDER) Today 08/18/2023 12:14 PM MACHINE [employer] WORKER TRANSFUSE CRYOPRECIPITATE (NURSE COMMUNICATION ORDER) Today 08/18/2023 12:08 PM MACHINE [employer] WORKER TRANSFUSE PLASMA (NURSE COMMUNICATION ORDER) Today 08/18/2023 11:59 AM MACHINE [employer] WORKER TRANSFUSE PLASMA (NURSE COMMUNICATION ORDER) Today 08/18/2023 11:54 AM MACHINE [employer] WORK[employer] TRANSFUSE PLASMA (NURSE COMMUNICATION ORDER) Today 08/18/2023 11:52 AM MACHINE [employer] WORKER CRYOPRECIPITATE ORDER STAT 08/18/2023 11:40 AM MACHINE [employer] WORKER PLASMA ORDER STAT 08/18/2023 11:40 AM MACHINE [employer] WORKER PLASMA SNGL DON FFPEA UNIT STAT 08/18/2023 11:39 AM MACHINE [employer] WORK[employer] PLASMA SNGL DON FFPEA UNIT STAT 08/18/2023 11:39 AM MACHINE [employer] WORK[employer] PLASMA SNGL DON FFPEA UNIT STAT 08/18/2023 11:39 AM MACHINE [employer] WORKER CRYOPRECIPITATE EA UNIT STAT 08/18/2023 11:39 AM MACHINE [employer]ING WORKER CRYOPRECIPITATE EA UNIT STAT 08/18/2023 11:39 AM MACHINE [employer]ING WORKER PLATELET COUNT STAT 08/18/2023 11:10 AM MACHINE CLOTHING WORKER PROTIME-INR STAT 08/18/2023 11:10 AM MACHINE CLOTHING WORKER FIBRINOGEN,QUANTITATIV E STAT 08/18/2023 11:10 AM MACHINE CLOTHING WORKER TRANSFUSE RBC (NURSE COMMUNICATION ORDER) Today 08/18/2023 10:28 AM MACHINE CLOTHING WORKER TRANSFUSE RBC (NURSE COMMUNICATION ORDER) Today 08/18/2023 10:28 AM MACHINE CLOTHING WORKER RBC W/O TYPE & SCREEN STAT 08/18/2023 8:16 AM MACHINE CLOTHING WORKER RED BLOOD CELLS EA UNIT STAT 08/18/2023 8:16 AM MACHINE CLOTHING WORKER RED BLOOD CELLS EA UNIT STAT 08/18/2023 8:16 AM MACHINE CLOTHING WORKER KEITH Routine 08/18/2023 8:02 AM MACHINE CLOTHING WORKER ENDOTRACHEAL TUBE Routine 08/18/2023 7:5 4 AM MACHINE CLOTHING WORKER BYPASS CORONARY ARTERY 01 08/18/2023 6:56 AM MACHINE CLOTHING WORKER CAD Case Notes BYPASS CORONARY ARTERY W/EVH TYPE & SCREEN Preop 08/18/2023 6:27 AM MACHINE CLOTHING WORKER GLUCOSE, FASTING Preop 08/18/2023 6:27 AM MACHINE CLOTHING WORKER SCAN-CARDIAC STRIP 08/18/2023 12:00 AM MACHINE CLOTHING WORKER SCAN-CARDIAC STRIP 08/18/2023 12:00 AM MACHINE CLOTHING WORKER US CAROTID DUPLEX BILATERAL Routine 08/15/2023 10:49 AM MACHINE CLOTHING WORKER Coronary artery disease, unspecified vessel or lesion type, unspecified whether angina present, unspecified whether [place] ira or transplanted heart US VEIN MAPPING LOWER EXTREMITY BILATERAL Routine 08/15/2023 10:47 AM MACHINE CLOTHING WORKER Coronary artery disease, unspecified vessel or lesion type, unspecified whether angina present, unspecified whether [place] ira or transplanted heart US ARTERIAL UPPER EXTREMITY BILATERAL Routine 08/15/2023 10:44 AM MACHINE CLOTHING WORKER Coronary artery disease, unspecified vessel or lesion type, unspecified whether angina present, unspecified whether [place] ira or transplanted heart US ARTERIAL SEG PRESSURES BILAT Routine 08/15/2023 10:44 AM MACHINE CLOTHING WORKER Coronary artery disease, unspecified vessel or lesion type, unspecified whether angina present, unspecified whether [place] ira or transplanted heart TYPE & SCREEN Today 07/27/2023 12:08 PM MACHINE CLOTHING WORKER PROTIME-INR Today 07/27/2023 12:08 PM MACHINE CLOTHING WORKER HCHG ACTIVATED CLOTTING TM CV Timed 07/27/2023 8:51 AM MACHINE CLOTHING WORKER HCHG ACTIVATED CLOTTING TM CV Timed 07/27/2023 8:41 AM MACHINE CLOTHING WORKER CVL CORONARY ANGIOGRAM POSS PCI Routine 07/27/2023 8:15 AM MACHINE CLOTHING WORKER Cardiovascular symptoms HEMOGLOBIN A1C SCREENING [facility] 07/27/2023 6:01 AM MACHINE CLOTHING WORKER CBC W PLT NO DIFF [facility] 07/27/2023 6:0 1 AM MACHINE CLOTHING WORKER BASIC METABOLIC PANEL [facility] 07/27/2023 6:01 AM MACHINE CLOTHING WORKER EKG 12 LEAD [facility] 07/27/2023 5:58 AM [address]INE [address]ING [address] CARDIAC CORONARY ARTERIES DUAL READ Routine 06/30/2023 2:47 PM MACHINE CLOTHING WORKER Chest pain, unspecified type CREATININE,ISTAT Routine 06/30/2023 2:28 PM MACHINE CLOTHING WORKER from Last 3 Months Results * XR CHEST 2 VIEWS PA AND LATERAL (08/27/2023 1:46 PM MACHINE CLOTHING WORKER) Anatomical Region Laterality Modality CHEST, THORAX, Lung, HEART Digit al Radiography 08/27/2023 1:55 PM MACHINE CLOTHING WORKER Impressions 08/27/2023 1:55 PM MACHINE CLOTHING WORKER No pneumothorax status post pleural drain removal. Dictated by Emigdio Simon MD @ Aug 27 2023 ??1:55PM (Electronically Signed) ?? Narrative 08/27/2023 1:55 PM MACHINE CLOTHING WORKER For Patients: ??As a result of the Cures Act, medical imaging exams and procedure reports are released immediately into your electronic medical record. ??You may view this report before your referring provider. ??If you have questions, please contact your health care provider. INDICATION: Chest tube removal TECHNIQUE: Chest 2 views COMPARISON: 08/27/2023 FINDINGS: Left pigtail catheter has been removed. There is no pneumothorax. Elevation left hemidiaphragm with left basilar atelectasis. Postop changes CABG. Procedure Note Emigdio Simon MD - 08/27/2023 For Patients: As a result of the Cures Act, medical imagingexams and procedure reports are released immediately into your electronicmedical record. You may view this report before your referring provider.If you have questions, please contact your health care provider. INDICATION: Chest tube removal TECHNIQUE: Chest 2 views COMPARISON: 08/27/2023 FINDINGS: Left pigtail catheter has been removed. There is no pneumothorax.Elevation left hemidiaphragm with left basilar atelectasis. Postop changesCABG. IMPRESSION: No pneumothorax status post pleural drain removal. Dictated by Emigdio Simon MD @ Aug 27 2023 1:55PM (Electronically Signed) Flower [facility] * XR CHEST 1 VIEW PORTABLE (08/27/2023 8:18 AM MACHINE CLOTHING WORKER) Only the most recent of12 resultswithin the time period is included. Anatomical Region Laterality Modality HEART, THORAX, CHEST Digital Rad iography 08/27/2023 8:28 AM MACHINE CLOTHING WORKER Impressions 08/27/2023 8:28 AM MACHINE CLOTHING WORKER No left effusion or pneumothorax with chest tube in place. Dictated by Marietta Yanez MD @ Aug 27 2023 ??8:28AM (Electronically Signed) ?? Narrative 08/27/2023 8:28 AM MACHINE CLOTHING WORKER For Patients: ??As a result of the Cures Act, medical imaging exams and procedure reports are released immediately into your electronic medical record. ??You may view this report before your referring provider. ??If you have questions, please contact your health care provider. INDICATION: Eval lung infiltrate. TECHNIQUE: Chest 1 view. COMPARISON: 08/26/2023. FINDINGS: Devices: Left pleural pigtail catheter in similar position over the left lateral chest. Cardiovasculature and mediastinum: ??Heart size is normal. ??Normal upper mediastinal contours. Lungs and pleural spaces: Lung volumes are good. Unchanged bibasilar consolidations. No new consolidation. No pleural effusion. No pneumothorax. ?? Bones and soft tissues: ??No acute findings. Procedure Note Marietta Yanez MD - 08/27/2023 For Patients: As a result of the Cures Act, medical imagingexams and procedure reports are released immediately into your electronicmedical record. You may view this report before your referring provider.If you have questions, please contact your health care provider. INDICATION: Eval lung infiltrate. TECHNIQUE: Chest 1 view. COMPARISON: 08/26/2023. FINDINGS: Devices: Left pleural pigtail catheter in similar position over the left lateralchest. Cardiovasculature and mediastinum: Heart size is normal. Normal uppermediastinal contours. Lungs and pleural spaces: Lung volumes are good. Unchanged bibasilarconsolidations. No new consolidation. No pleural effusion. Nopneumothorax. Bones and soft tissues: No acute findings. IMPRESSION: No left effusion or pneumothorax with chest tube in place. Dictated by Marietta Yanez MD @ Aug 27 2023 8:28AM (Electronically Signed) Ritesh [facility] * SCAN-CARDIAC STRIP (08/27/2023 7:59 AM MACHINE CLOTHING WORKER) Scanner OTHER * (ABNORMAL) CBC W PLT NO DIFF (08/27/2023 7:06 AM MACHINE CLOTHING WORKER) Only the most recent of11 resultswithin the time period is included. WHITE BLOOD COUNT 11.1(H) 4.5 - 11.0 thou/cu mm 08/27/2023 7:[address] [facility] RED BLOOD COUNT 3.22(L) 4.00 - 5.20 mil/cu mm 08/27/2023 7:[address] [facility] HEMOGLOBIN 9.5(L) 12.0 - 16.0 g/dL 08/27/2023 7:[address] [facility] HEMATOCRIT 29.3(L) 33.0 - 51.0 % 08/27/2023 7:[address] [facility] MCV 91 80 - 100 fL 08/27/2023 7:[address] [facility] MCH 29.5 26.0 - 34.0 pg 08/27/2023 7:[address] [facility] MCHC 32.4 32.0 - 36.0 g/dL 08/27/2023 7:[address] [facility] RDW 15.0 11.5 - 15.5 % 08/27/2023 7:[address] [facility] PLATELET COUNT 227 140 - 440 thou/cu mm 08/27/2023 7:[address] [facility] MPV 8.6 6.5 - 11.0 fL 08/27/2023 7:[address] [facility] NRBC 0.5 % 08/27/2023 7:[address] [facility] ABS NRBC 0.1 thou /cu mm 08/27/2023 7:[address] [facility] Blood BLOOD SPECIMEN / Unknown Venipuncture / Unknown 08/27/2023 7:06 AM MACHINE CLOTHING WORKER 08/27/2023 7:14 AM [facility] Ritesh OSCAR HEMATOLOGY [facility] [address] [address], * (ABNORMAL) PROTIME-INR (08/27/2023 7:06 AM MACHINE CLOTHING WORKER) Only the most recent of17 resultswithin the time period is included. INR 2.0(H) <1.3 08/27/2023 7:31 AM MACHINE CLOTHING WORKER [facility] PROTIME 21.8(H) 10.3 - 12.3 sec 08/27/2023 7:31 AM MACHINE CLOTHING WORKER [facility] Blood BLOOD SPECIMEN / Unknown Venipuncture / Unknown 08/27/2023 7:06 AM MACHINE CLOTHING WORKER 08/27/2023 7:14 AM MACHINE CLOTHING WORKER Narrative [facility] - 08/27/2023 7:31 AM MACHINE CLOTHING WORKER ?Therapeutic Range 2.0-3.0 for most anticoagulated patients 2.5-3.5 or 4.0 for high risk patients The INR is only used for patients on stable oral anticoagulant therapy. It makes no significant contribution to the diagnosis or treatment of patients whose Protime is prolonged for other reasons. INR results are increased when heparin levels exceed 1.0 U/mL, which corresponds to an aPTT >125 seconds if the patient is on UFH. Mary OSCAR HEMATOLOGY Performing Organization Address [facility] de Phone Number [facility] [address] [address], * (ABNORMAL) Hepatic function panel AM (08/27/2023 7:06 AM MACHINE CLOTHING WORKER) Only the most recent of5 resultswithin the time period is included. ALBUMIN 3.7(L) 4.0 - 4.9 g/dL 08/27/2023 7:49 AM MACHINE CLOTHING WORKER [facility] PROTEIN,TOTAL 5.8(L) 6.0 - 8.0 g/dL 08/27/2023 7:49 AM MACHINE CLOTHING WORKER [facility] BILIRUBIN,TOTAL 0.7 0.0 - 1.2 mg/dL 08/27/2023 7:[address] [facility] TRA LABORATORY BILIRUBIN,DIRECT 0.2 0.0 - 0.3 mg/dL 08/27/2023 7:49 AM [facility] BILIRUBIN,INDIRE CT 0.5 0.2 - 0.8 mg/dL 08/27/2023 7:49 AM [facility] ALK PHOSPHATASE 81 35 - 104 IU/L 08/27/2023 7:49 AM [facility] ALT (SGPT) 108(H) 10 - 35 IU/L 08/27/2023 7:49 AM [facility] AST (SGOT) 34 10 - 35 IU/L 08/27/2023 7:49 AM [facility] Blood BLOOD SPECIMEN / Unknown Venipuncture / Unknown 08/27/2023 7:06 AM MACHINE CLOTHING WORKER 08/27/2023 7:14 AM [facility] Dalton Victoria MD CHEMISTRY [facility] [address] [place] [address], * (ABNORMAL) BASIC METABOLIC PANEL (08/27/2023 7:06 AM [facility]) Only the most recent of9 resultswithin the time period is included. SODIUM 140 136 - 145 mmol/L 08/27/2023 7:[address] [facility] POTASSIUM 4.3 3.5 - 5.1 mmol/L 08/27/2023 7:[address] [facility] CHLORIDE 105 98 - 107 mmol/L 08/27/2023 7:49 AM [facility] CO2,TOTAL 28 22 - 29 mmol/L 08/27/2023 7:49 AM [facility] ANION GAP 7 5 - 18 08/27/2023 7:[address] [facility] GLUCOSE 112(H) 70 - 99 mg/dL 08/27/2023 7:49 AM MACHINE CLOTHING WORKER [facility] CALCIUM 8.7(L) 8.8 - 10.2 mg/dL 08/27/2023 7:[address] [facility] BUN 16 8 - 23 mg/dL 08/27/2023 7:[address] [facility] CREATININE 0.55 0.50 - 0.90 mg/dL 08/27/2023 7:[address] [facility] BUN/CREAT RATIO 29(H) 10 - 20 7:[address] [facility] eGFR >90 >90 mL/min/1.7 3m2 08/27/2023 7:[address] [facility] Comment:As of 2021, eG FR is calculated by the CKD-EPI creatinine equation without race adjustment. ??eGFR can be influenced by muscle mass, exercise, and diet. ??The reported eGFR is an estimation only and is only applicable if the renal function is stable. Blood BLOOD SPECIMEN / Unknown Venipuncture / Unknown 08/27/2023 7:06 AM MACHINE CLOTHING WORKER 08/27/2023 7:14 AM MACHINE CLOTHING WORKER Ritesh OSCAR CHEMISTRY Performing Organization Address City/[facility]/ZIP Co de Phone Number [facility] [address] [place] [address], [place] * POTASSIUM (08/26/2023 6:46 PM MACHINE CLOTHING WORKER) Only the most recent of7 resultswithin the time period is included. POTASSIUM 4.1 3.5 - 5.1 mmol/L 08/26/2023 7:43 PM MACHINE CLOTHING WORKER [facility] Blood BLOOD SPECIMEN / Unknown Venipuncture / Unknown 08/26/2023 6:46 PM MACHINE CLOTHING WORKER 08/26/2023 6:59 PM MACHINE CLOTHING WORKER Troy Trent MD CHEMISTRY Performing Organization Address [facility]/ZIP Co de Phone Number [facility] [address] [place] [address], [place] * (ABNORMAL) GLUCOSE METER (08/26/2023 11:46 AM MACHINE CLOTHING WORKER) Only the most recent of38 resultswithin the time period is included. GLUCOSE METER 106(H) 65 - 100 mg/dL 08/26/2023 11:52 AM MACHINE CLOTHING WORKER [facility] Blood BLOOD SPECIMEN / Unknown 08/26/2023 11:46 AM MACHINE CLOTHING WORKER 08/26/2023 11:52 AM MACHINE CLOTHING WORKER Troy Trent MD CHEMISTRY Performing Organization Address [facility] de Phone Number [facility] [address] [place] [address], * SCAN-CARDIAC STRIP (08/26/2023 7:37 AM MACHINE CLOTHING WORKER) Scanner OTHER * (ABNORMAL) HEMOGLOBIN (08/25/2023 9:12 PM MACHINE CLOTHING WORKER) Only the most recent of6 resultswithin the time period is included. HEMOGLOBIN 10.2(L) 12.0 - 16.0 g/dL 08/25/2023 9:29 PM MACHINE CLOTHING WORKER [facility] MCV 91 80 - 100 fL 08/25/2023 9:29 PM MACHINE CLOTHING WORKER [facility] Blood BLOOD SPECIMEN / Unknown Butterfly / Unknown 08/25/2023 9:12 PM MACHINE CLOTHING WORKER 08/25/2023 9:17 PM MACHINE CLOTHING WORKER Mahogany Gleason NP HEMATOLOGY Performing Organization Address [facility] de Phone Number [facility] [address] [place] [address], [place] * SCAN-CARDIAC STRIP (08/25/2023 7:44 PM MACHINE CLOTHING WORKER) Scanner OTHER * CT CHEST TUBE PLACEMENT LEFT (08/25/2023 2:32 PM MACHINE CLOTHING WORKER) Anatomical Region Laterality Modality Computed Tomogra phy, Other, Other 08/25/2023 3:13 PM MACHINE CLOTHING WORKER Narrative 08/25/2023 3:13 PM MACHINE CLOTHING WORKER For Patients: ??As a result of the Century Cures Act, medical imaging exams and procedure reports are released immediately into your electronic medical record. ??You may view this report before your referring provider. ??If you have questions, please contact your health care provider. INDICATION: Left hemothorax. Image guided left chest tube requested. TECHNIQUE: CT chest tube placement left. COMPARISON: Chest CT 08/24/2023. FINDINGS/DESCRIPTION OF PROCEDURE : In my discussion, prior to the signing of the consent, I reviewed the procedure, benefits, risks, long-term effects, treatment options, possible use of pain or sedation medications, and how the procedure will meet the treatment goal with the patient. The patient was given ample time to ask questions. All questions were answered. ??MEDICATION GIVEN: FENTANYL 100 mcg IV. Lidocaine for local anesthesia. ?? MINIMAL SEDATION: Under physician supervision, fentanyl was administered intravenously for minimal sedation. Pulse oximetry, heart rate, and blood pressure were continuously monitored by a trained, dedicated nurse. With the patient in supine position, localizing CT images were obtained. Left lateral approach chosen. The site was marked, and then prepped and draped in sterile fashion. Captiva protocol was followed. TIME-OUT conducted just prior to starting procedure confirmed patient identity, site/side, procedure, patient position, and availability of correct equipment. ??Pause for cause was performed. 10 cc 1 percent lidocaine was used for superficial and deeper anesthesia. Under CT fluoroscopic guidance, a Yueh needle was advanced into the left pleural effusion. Through this, an 035 wire was advanced. The tract was dilated with a 12-Swazi dilator. Over the wire, a 14-Swazi pigtail catheter was placed with position verified by CT. The catheter was locked and sutured in position. The catheter was attached to a Pleur-evac after 50 cc of bloody fluid was obtained and sent for Gram stain and culture. No immediate complications. EBL less than 10 cc. IMPRESSION/POSTPROCEDURE DIAGNOSIS : 1. Status post CT-guided placement of 14-Swazi pigtail catheter into left pleural effusion. 50 cc of bloody fluid obtained and sent for Gram stain and culture. 2. No immediate complications. 3. Minimal sedation planned and used. Please note that all CT scans at this facility use dose modulation, iterative reconstruction, and/or weight-based dosing when appropriate to reduce radiation dose to as low as reasonably achievable. Dictated by Wolf Shipman MD @ 08/25/2023 3:13:32 PM (Electronically Signed) Procedure Note Wolf Shipman MD - 08/25/2023 For Patients: As a result of the Cures Act, medical imagingexams and procedure reports are released immediately into your electronicmedical record. You may view this report before your referring provider.If you have questions, please contact your health care provider. INDICATION: Left hemothorax. Image guided left chest tube requested. TECHNIQUE: CT chest tube placement left. COMPARISON: Chest CT 08/24/2023. FINDINGS/DESCRIPTION OF PROCEDURE : In my discussion, prior to the signing of the consent, I reviewed theprocedure, benefits, risks, long-term effects, treatment options, possibleuse of pain or sedation medications, and how the procedure will meet thetreatment goal with the patient. The patient was given ample time to askquestions. All questions were answered. MEDICATION GIVEN: FENTANYL 100mcg IV. Lidocaine for local anesthesia. MINIMAL SEDATION: Under physician supervision, fentanyl was administeredintravenously for minimal sedation. Pulse oximetry, heart rate, and bloodpressure were continuously monitored by a trained, dedicated nurse. With the patient in supine position, localizing CT images were obtained.Left lateral approach chosen. The site was marked, and then prepped anddraped in sterile fashion. Captiva protocol was followed. TIME-OUT conducted just prior to startingprocedure confirmed patient identity, site/side, procedure, patientposition, and availability of correct equipment. Pause for cause wasperformed. 10 cc 1 percent lidocaine was used for superficial and deeper anesthesia.Under CT fluoroscopic guidance, a Yueh needle was advanced into the leftpleural effusion. Through this, an 035 wire was advanced. The tract wasdilated with a 12-Swazi dilator. Over the wire, a 14-Swazi pigtailcatheter was placed with position verified by CT. The catheter was lockedand sutured in position. The catheter was attached to a Pleur-evac after50 cc of bloody fluid was obtained and sent for Gram stain and culture. Noimmediate complications. EBL less than 10 cc. IMPRESSION/POSTPROCEDURE DIAGNOSIS : 1. Status post CT-guided placement of 14-Swazi pigtail catheter into leftpleural effusion. 50 cc of bloody fluid obtained and sent for Gram stainand culture. 2. No immediate complications. 3. Minimal sedation planned and used. Please note that all CT scans at this facility use dose modulation,iterative reconstruction, and/or weight-based dosing when appropriate toreduce radiation dose to as low as reasonably achievable. Dictated by Wolf Shipman MD @ 08/25/2023 3:13:32 PM (Electronically Signed) Ritesh OSCAR CT * Aerobic Culture Body Fluid (08/25/2023 2:00 PM MACHINE CLOTHING WORKER) CULTURE No Growth. 08/30/2023 7:48 AM MACHINE CLOTHING WORKER [facility] GRAM STAIN No PMNs 08/30/2023 7:48 AM MACHINE CLOTHING WORKER [facility] GRAM STAIN No Epithelial cells 08/30/2023 7:48 AM MACHINE CLOTHING WORKER [facility] GRAM STAIN 4+ RBCs 08/30/2023 7:48 AM MACHINE CLOTHING WORKER [facility] GRAM STAIN No organisms seen 08/30/2023 7:48 AM MACHINE CLOTHING WORKER [facility] Body Fluid (Pleural) Non-Blood / Unknown 08/25/2023 2:00 PM MACHINE CLOTHING WORKER 08/25/2023 2:41 PM MACHINE CLOTHING WORKER Wolf Shipman MD MICROBIOLOGY Performing Organization Address [facility] Co de Phone Number [facility] [address] [place] [address], * Anaerobic Culture (08/25/2023 2:00 PM MACHINE CLOTHING WORKER) CULTURE No anaerobes isolated 08/31/2023 11:14 AM MACHINE CLOTHING WORKER [facility] TR[facility] Other (Other) Non-Blood / Unknown 08/25/2023 2:00 PM MACHINE CLOTHING WORKER 08/25/2023 2:41 PM MACHINE CLOTHING WORKER Wolf Shipman MD MICROBIOLOGY Performing Organization Address [facility]/ZIP Co de Phone Number [facility] [address] [facility] [place] [address], [place] * TRANSFUSE PLASMA (NURSE COMMUNICATION ORDER) (08/25/2023 1:41 PM MACHINE CLOTHING WORKER) Blood BLOOD SPECIMEN / Unknown Leila OSCAR NURSING BLOOD B ANK * PLASMA ORDER, 1 unit (08/25/2023 11:49 AM MACHINE CLOTHING WORKER) Only the most recent of3 resultswithin the time period is included. QUANTITY 1 08/25/2023 11:49 AM MACHINE CLOTHING WORKER [facility] mLEDCENTRAL LAB BLOOD BANK Blood BLOOD SPECIMEN / Unknown 08/25/2023 11:32 AM MACHINE CLOTHING WORKER Leila OSCAR BLOOD BANK Performing Organization Address [facility]/ZIP Co de Phone Number [facility]se[facility]TR[facility] LAB BLOOD BANK [address] [place] [id number], * PLASMA SNGL DON FFPEA UNIT (08/25/2023 11:32 AM MACHINE CLOTHING WORKER) Only the most recent of5 resultswithin the time period is included. PRODUCT BLOOD TYPE A Rh Positive [facility] mLEDCENTRAL LAB BLOOD BANK PRODUCT ID NUMBER [id number] [facility] [employer] Capture-CENTRAL LAB BLOOD BANK PRODUCT STATUS Transfused [facility] [employer] Capture-CENTRAL LAB BLOOD BANK PRODUCT DESCRIPTION FP ACD-A Thaw [facility] mLEDCENTRAL LAB [facility]LOOD BANK PRODUCT CODE [id number] [facility]ApptheGame LAB BLOOD BANK ISSUE DATE/TIME 08/25/23 11:54 [facility] [employer] LAB BLOOD BANK Leila OSCAR BLOOD BANK Performing Organization Address City/[facility]/ZIP Co de Phone Number [facility]LO[facility] [address] [place] [id number], * TRANSFUSE PLASMA (NURSE COMMUNICATION ORDER) (08/25/2023 11:25 AM MACHINE CLOTHING WORKER) Blood BLOOD SPECIMEN / Unknown Leila OSCAR NURSING BLOOD B ANK * SCAN-CARDIAC STRIP (08/25/2023 7:57 AM MACHINE CLOTHING WORKER) Scanner OTHER * LIPOPROTEIN A (08/25/2023 6:45 AM MACHINE CLOTHING WORKER) LIPOPROTEIN (A) 47.1 <75.0 nmol/L 08/27/2023 10:06 PM [facility] ([facility] Comment: Note: ??Values greater than or equal to 75.0 nmol/L may ? indicate an independent risk factor for CHD, ? but must be evaluated with caution when applied ? to non- populations due to the ? influence of genetic factors on Lp(a) across ? ethnicities. Blood BLOOD SPECIMEN / Unknown Venipuncture / Unknown 08/25/2023 6:45 AM MACHINE CLOTHING WORKER 08/25/2023 7:02 AM MACHINE CLOTHING WORKER Narrative [facility] ([facility]) - 08/27/2023 10:06 PM MACHINE CLOTHING WORKER Performed at: ??[address] ??[id number] Assistant Pressman: Pat Overton MD, Phone: ??[phone] Dalton Victoria MD SEND OUTS [facility] (CET) [address] [place] [id number] * (ABNORMAL) APTT (08/25/2023 6:45 AM MACHINE CLOTHING WORKER) Only the most recent of14 resultswithin the time period is included. APTT 22(L) 29 - 36 sec 08/25/2023 7:21 AM MACHINE CLOTHING WORKER [facility] Blood BLOOD SPECIMEN / Unknown Venipuncture / Unknown 08/25/2023 6:45 AM MACHINE CLOTHING WORKER 08/25/2023 7:02 AM MACHINE CLOTHING WORKER Narrative [facility] - 08/25/2023 7:21 AM MACHINE CLOTHING WORKER Therapeutic Range: 57-100 seconds Troy Trent MD HEMATOLOGY Performing Organization Address City/[facility] Co de Phone Number [facility] [address] * SCAN-CARDIAC STRIP (08/25/2023 1:34 AM MACHINE CLOTHING WORKER) Scanner OTHER * SPUTUM CULTURE, STAIN (08/24/2023 9:05 PM MACHINE CLOTHING WORKER) Only the most recent of2 resultswithin the time period is included. CULTURE Usual fred 08/27/2023 11:01 AM MACHINE CLOTHING WORKER [facility] LAB[facility] GRAM STAIN 1+ PMNs 08/27/2023 11:01 AM MACHINE CLOTHING WORKER [facility] GRAM STAIN No RBCs 08/27/2023 11:01 AM MACHINE CLOTHING WORKER [facility] GRAM STAIN 1+ Epithelial cells 08/27/2023 11:01 AM MACHINE CLOTHING WORKER [facility] GRAM STAIN 2+ Gram Positive Cocci 08/27/2023 11:01 AM MACHINE CLOTHING WORKER [facility] GRAM STAIN 1+ Yeast 08/27/2023 11:01 AM MACHINE CLOTHING WORKER [facility] Sputum SPUTUM SPECIMEN OBTAINED BY SPUTUM INDUCTION / Unknown Non-Blood / Unknown 08/24/2023 9:05 PM MACHINE CLOTHING WORKER 08/24/2023 9:26 PM MACHINE CLOTHING WORKER Heike ORR MICROBIOLOGY Performing Organization Address City/[facility]/ZIP Co de Phone Number [facility] [address] * TRANSFUSE RBC (NURSE COMMUNICATION ORDER) (08/24/2023 8:48 PM MACHINE CLOTHING WORKER) Blood BLOOD SPECIMEN / Unknown Leila Verdin PA NURSING BLOOD B ANK * PROCALCITONIN (08/24/2023 6:23 PM MACHINE CLOTHING WORKER) Only the most recent of2 resultswithin the time period is included. PROCALCITONIN 0.10 ng/ml 08/24/2023 7:19 PM [facility] Blood BLOOD SPECIMEN / Unknown Venipuncture / Unknown 08/24/2023 6:23 PM MACHINE CLOTHING WORKER 08/24/2023 6:29 PM MACHINE CLOTHING WORKER [facility] LABORATORY - 08/24/2023 7:19 PM MACHINE CLOTHING WORKER Procalcitonin for initial assessment of Lower Respiratory Tract Infection: Results Interpretation <0.10 ng/mL Antibiotic therapy strongly discoraged. ??Indicates absent of bacterial infection. * 0.10 - 0.25 ng/mL Antibiotic therapy discouraged. ??Bacterial infection unlikely. * 0.26 - 0.50 ng/mL Antibiotic therapy encouraged. ??Bacterial infection possible. >0.50 ng/mL Antibiotic therapy strongly encouraged. ??Suggestive of presence of bacterial infection. *Antibiotic therapy should be considered regardless of PCT result if the patient is clinically unstable, is at high risk for adverse outcome, has strong evidence of bacterial pathogen, or the clinical context indicates antibiotic therapy is warranted. ??If antibiotics are withheld, reassess if symptoms persist/worsen and/or repeat PCT measurement within 6-24 hours. ? In order to assess treatment success and to support a decision to discontinue antibiotic therapy, follow up samples should be tested once every 1-2 days, based upon physician discretion taking into account patient's evolution and progress. Procalcitonin for initial assessment of severe sepsis risk: Results Interpretation <0.5 ng/ml A PCT level below 0.5 ng/ml on the first day of ICU admission is associated with a low risk for progression to severe sepsis and/or septic shock. > 2.0 ng/mL A PCT level above 2.0 ng/mL on the first day of ICU admission is associated with a high risk for progression to severe sepsis and/or septic shock. Note: Concentrations < 0.5 ng/mL do not exclude an infection, on account of localized infections (without systemic signs) which can be associated with such low concentrations, or a systemic infection in its initial stages(< 6 hours). Furthermore, increased procalcitonin can occur without infection. PCT concentrations between 0.5 and 2.0 ng/mL should be interpreted taking into account the patient's history. It is recommended to retest PCT within 6-24 hours if any concentrations < 2 ng/mL are obtained. Heike ORR SEND OUTS [facility] [address] [place] [address], [place] * CT CHEST WO (08/24/2023 4:54 PM MACHINE CLOTHING WORKER) Only the most recent of2 resultswithin the time period is included. 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 1. Increased near total opacification of left hemithorax, likely lower lobe atelectasis without underlying obstructive mass lesion identified. 2. There is a new mediastinal loculated fluid collections in the left para- aortic region, and along the anterior cardiac border measuring 2.1 x 2.9 cm, nonspecific. May represent a postoperative seroma versus abscess formation. Prominent mediastinal lymph nodes appear similar to prior. 3. Ill-defined ground-glass consolidation in a peripheral distribution bilaterally, a nonspecific finding. Consider atypical infection, COVID-19 may have this appearance. 4. Small right and moderate left pleural effusions, similar prior, compressive atelectasis of the left lung base. 5. Relative hypoattenuation of the cardiac blood pool relative to the myocardium, suggestive of anemia. Please note that all CT scans at this facility use dose modulation, iterative reconstruction, and/or weight-based dosing when appropriate to reduce radiation dose to as low as reasonably achievable. Dictated by Ajay Guerrero MD @ 08/24/2023 5:44:53 PM (Electronically Signed) Narrative 08/24/2023 5:44 PM MACHINE CLOTHING WORKER For Patients: ??As a result of the 21st Century Cures Act, medical imaging exams and procedure reports are released immediately into your electronic medical record. ??You may view this report before your referring provider. ??If you have questions, please contact your health care provider. INDICATION: Pleural effusion, left lung opacity, evaluate for obstruction. TECHNIQUE: Multiplanar CT examination of the chest was performed without intravenous contrast. COMPARISON: CT chest 08/20/2023. Chest radiograph 08/24/2023. FINDINGS: Lower Neck: ??Visualized thyroid gland is unremarkable. Lungs: Near total opacification of the left hemithorax, increased since prior. New masslike consolidation of the anterior right middle lobe. New patchy ground- glass consolidation involving the peripheral lung zones bilaterally. Airways: The trachea remains patent and midline. No suspicious endobronchial lesions. No obstructive mass lesion identified. Pleura: Bilateral small pleural effusions, not significantly changed since prior. The apical pneumothoraces have resolved. Cardiovascular: Heart size is normal. Thoracic aorta and pulmonary artery are normal in caliber. Dense coronary arterial calcifications. There is hypoattenuation of the cardiac blood pool relative to myocardium, suggestive of anemia. Mediastinum: Evaluation of hilar lymphadenopathy is limited without the use of intravenous contrast. ?? Prominent mediastinal lymph nodes appear grossly unchanged.. There is increased size of a loculated fluid collection in the left para-aortic region measuring 2.1 x 2.9 cm (2:34), an additional larger loculated fluid collection measuring 5.7 x 3.0 cm more inferiorly anterior to the cardiac border to: 54) Chest wall: Recent median sternotomy, mediastinal drains. Upper abdomen: Unremarkable. Bones: Degenerative changes of the thoracic spine. No acute osseous abnormalities.. Procedure Note Ajay Guerrero DO - 08/24/2023 For Patients: As a result of the 21st Century Cures Act, medical imagingexams and procedure reports are released immediately into your electronicmedical record. You may view this report before your referring provider.If you have questions, please contact your health care provider. INDICATION: Pleural effusion, left lung opacity, evaluate for obstruction. TECHNIQUE: Multiplanar CT examination of the chest was performed without intravenouscontrast. COMPARISON: CT chest 08/20/2023. Chest radiograph 08/24/2023. FINDINGS: Lower Neck: Visualized thyroid gland is unremarkable. Lungs: Near total opacification of the left hemithorax, increased sinceprior. New masslike consolidation of the anterior right middle lobe. Newpatchy ground-glass consolidation involving the peripheral lung zonesbilaterally. Airways: The trachea remains patent and midline. No suspiciousendobronchial lesions. No obstructive mass lesion identified. Pleura: Bilateral small pleural effusions, not significantly changed sinceprior. The apical pneumothoraces have resolved. Cardiovascular: Heart size is normal. Thoracic aorta and pulmonary arteryare normal in caliber. Dense coronary arterial calcifications. There ishypoattenuation of the cardiac blood pool relative to myocardium,suggestive of anemia. Mediastinum: Evaluation of hilar lymphadenopathy is limited without theuse of intravenous contrast. Prominent mediastinal lymph nodes appeargrossly unchanged.. There is increased size of a loculated fluidcollection in the left para-aortic region measuring 2.1 x 2.9 cm (2:34),an additional larger loculated fluid collection measuring 5.7 x 3.0 cmmore inferiorly anterior to the cardiac border to: 54) Chest wall: Recent median sternotomy, mediastinal drains. Upper abdomen: Unremarkable. Bones: Degenerative changes of the thoracic spine. No acute osseousabnormalities.. 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 1. Increased near total opacification of left hemithorax, likely lowerlobe atelectasis without underlying obstructive mass lesion identified. 2. There is a new mediastinal loculated fluid collections in the leftpara-aortic region, and along the anterior cardiac border measuring 2.1 x2.9 cm, nonspecific. May represent a postoperative seroma versus abscessformation. Prominent mediastinal lymph nodes appear similar to prior. 3. Ill-defined ground-glass consolidation in a peripheral distributionbilaterally, a nonspecific finding. Consider atypical infection, COVID-19may have this appearance. 4. Small right and moderate left pleural effusions, similar prior,compressive atelectasis of the left lung base. 5. Relative hypoattenuation of the cardiac blood pool relative to themyocardium, suggestive of anemia. Please note that all CT scans at this facility use dose modulation,iterative reconstruction, and/or weight-based dosing when appropriate toreduce radiation dose to as low as reasonably achievable. Dictated by Ajay Guerrero MD @ 08/24/2023 5:44:53 PM (Electronically Signed) Heike ORR CT * SCAN-CARDIAC STRIP (08/24/2023 3:35 PM MACHINE CLOTHING WORKER) Scanner OTHER * RBC W TYPE AND SCREEN (08/24/2023 3:20 PM MACHINE CLOTHING WORKER) ABORH O Rh Negative 08/24/2023 4:24 PM MACHINE CLOTHING WORKER [employer] [facility] BLOOD B[facility] ANTIBODY SCREEN Negative Negative 08/24/2023 4:24 PM MACHINE CLOTHING WORKER [facility] SPECIMEN EXPIRATION DATE/TIME 08/27/23 23:59 08/24/2023 4:24 PM MACHINE CLOTHING WORKER [facility] [employer] LAB BLOOD BANK Blood BLOOD SPECIMEN / Unknown Venipuncture / Unknown 08/24/2023 3:20 PM MACHINE CLOTHING WORKER 08/24/2023 3:38 PM MACHINE CLOTHING WORKER Leila OSCAR BLOOD BANK Performing Organization Address City/[facility] Co de Phone Number [employer] LAB BLOOD BANK [address] [place] [address], [place] [phone] * RED BLOOD CELLS EA UNIT (08/24/2023 3:20 PM MACHINE CLOTHING WORKER) Only the most recent of3 resultswithin the time period is included. CROSSMATCH Compatible Compatible [employer] LAB BLOOD BANK PRODUCT BLOOD TYPE O Rh Negative [facility] [employer] LAB BLOOD BANK PRODUCT ID NUMBER [id number] [facility] PRODUCT STATUS Transfused [facility] [employer] LAB BLOOD BANK PRODUCT DESCRIPTION RBC -1 LR [facility] PRODUCT CODE [id number] [facility] [employer] LAB BLOOD BANK ISSUE DATE/TIME 08/24/23 17:10 [facility] [employer] LAB BLOOD BANK Leila OSCAR BLOOD BANK [employer] LAB BLOOD BANK [address] [place] [address], [place] [phone] * SCAN-CARDIAC STRIP (08/24/2023 7:41 AM MACHINE CLOTHING WORKER) Scanner OTHER * Magnesium AM (08/24/2023 3:28 AM MACHINE CLOTHING WORKER) Only the most recent of7 resultswithin the time period is included. MAGNESIUM 2.1 1.6 - 2.4 mg/dL 08/24/2023 5:36 AM MACHINE CLOTHING WORKER [facility] Blood BLOOD SPECIMEN / Unknown Venipuncture / Unknown 08/24/2023 3:28 AM MACHINE CLOTHING WORKER 08/24/2023 3:40 AM MACHINE CLOTHING WORKER Mary OSCAR CHEMISTRY [facility] [address] [place] [address], * SCAN-CARDIAC STRIP (08/24/2023 12:30 AM MACHINE CLOTHING WORKER) Scanner OTHER * SCAN-CARDIAC STRIP (08/23/2023 11:15 PM MACHINE CLOTHING WORKER) Scanner OTHER * SCAN-CARDIAC STRIP (08/23/2023 2:20 PM MACHINE CLOTHING WORKER) Scanner OTHER * SCAN-CARDIAC STRIP (08/23/2023 9:58 AM MACHINE CLOTHING WORKER) Scanner OTHER * PHOSPHORUS (08/23/2023 5:03 AM MACHINE CLOTHING WORKER) PHOSPHORUS 3.1 2.5 - 4.5 mg/dL 08/23/2023 7:01 AM MACHINE CLOTHING WORKER [facility] Blood BLOOD SPECIMEN / Unknown Venipuncture / Unknown 08/23/2023 5:03 AM MACHINE CLOTHING WORKER 08/23/2023 5:12 AM MACHINE CLOTHING WORKER Bon Pham MD CHEMISTRY [facility] [address] [place] [address], * (ABNORMAL) COMP METABOLIC PANEL (08/23/2023 5:03 AM MACHINE CLOTHING WORKER) SODIUM 140 136 - 145 mmol/L 08/23/2023 6:[address] [facility] LAB[facility] POTASSIUM 3.5 3.5 - 5.1 mmol/L 08/23/2023 6:[address] [facility] LABOR[facility] CHLORIDE 104 98 - 107 mmol/L 08/23/2023 6:[address] [facility] LAB[facility] CO2,TOTAL 26 22 - 29 mmol/L 08/23/2023 6:[address] [facility] LAB[facility] ANION GAP 10 5 - 18 08/23/2023 6:[address] [facility] LAB[facility] GLUCOSE 143(H) 70 - 99 mg/dL 08/23/2023 6:[address] [facility] LAB[facility]ATORY CALCIUM 8.2(L) 8.8 - 10.2 mg/dL 08/23/2023 6:[address] [facility] LABOR[facility] BUN 11 8 - 23 mg/dL 08/23/2023 6:[address] [facility] LABOR[facility]ORY CREATININE 0.47(L) 0.50 - 0.90 mg/dL 08/23/2023 6:[address] [facility]AL LABORAT[facility] BUN/CREAT RATIO 23(H) 10 - 20 6:[address] [facility] TRA LABORATORY eGFR >90 >90 mL/min/1.7 3m2 08/23/2023 6:[address] [facility] TR[facility] LABORATORY Comment:As of 2021, eG FR is calculated by the CKD-EPI creatinine equation without race adjustment. ??eGFR can be influenced by muscle mass, exercise, and diet. ??The reported eGFR is an estimation only and is only applicable if the renal function is stable. ALBUMIN 3.3(L) 4.0 - 4.9 g/dL 08/23/2023 6:[address] [facility] TR[facility] LABORATORY PROTEIN,TOTAL 5.2(L) 6.0 - 8.0 g/dL 08/23/2023 6:[address] [facility] LAB[facility] BILIRUBIN,TOTAL 0.6 0.0 - 1.2 mg/dL 08/23/2023 6:[address] [facility] LABORAT[facility] ALK PHOSPHATASE 71 35 - 104 IU/L 08/23/2023 6:39 AM MACHINE CLOTHING WORKER [facility] ALT (SGPT) 256(H) 10 - 35 IU/L 08/23/2023 6:39 AM MACHINE CLOTHING WORKER [facility] AST (SGOT) 118(H) 10 - 35 IU/L 08/23/2023 6:39 AM MACHINE CLOTHING WORKER [facility] TRAL LABORATORY Blood BLOOD SPECIMEN / Unknown Venipuncture / Unknown 08/23/2023 5:03 AM MACHINE CLOTHING WORKER 08/23/2023 5:12 AM MACHINE CLOTHING WORKER Bon Pham MD CHEMISTRY Performing Organization Address City/[facility]/ZIP Co de Phone Number [facility] [address] [place] [id number], * ECG TODAY (08/22/2023 4:41 PM MACHINE CLOTHING WORKER) Only the most recent of8 resultswithin the time period is included. Pathologist [facility] Interpretation Normal sinus rhythm Normal ECG When compared with ECG of 20-AUG-2023 08:00, No significant change was found BEYOND NOW Ventricular Rate 79 BPM BEYOND NOW Atrial Rate 79 BPM BEYOND NOW P-R Interval 144 ms BEYOND NOW QRS Duration 78 ms BEYOND NOW QT 392 ms BEYOND NOW QTc 449 ms BEYOND NOW P Omro -10 degrees BEYOND NOW R Omro -5 degrees BEYOND NOW T Omro 49 degrees BEYOND NOW 08/22/2023 4:41 PM MACHINE CLOTHING WORKER 08/23/2023 6:51 PM MACHINE CLOTHING WORKER Narrative BEYOND NOW - 08/23/2023 6:51 PM MACHINE CLOTHING WORKER Test Indication: STAT Mary OSCAR EKG ORD [facility] NOW [place], [place] * SCAN-CARDIAC STRIP (08/22/2023 8:13 AM MACHINE CLOTHING WORKER) Scanner OTHER * LACTATE ARTERIAL (08/22/2023 4:24 AM MACHINE CLOTHING WORKER) Only the most recent of2 resultswithin the time period is included. Pathologist [facility] LACTATE,ARTERI AL 0.8 0.5 - 1.6 mmol/L 08/22/2023 5:10 AM MACHINE CLOTHING WORKER [facility] Blood BLOOD SPECIMEN / Unknown Arterial / Unknown 08/22/2023 4:24 AM MACHINE CLOTHING WORKER 08/22/2023 4:33 AM MACHINE CLOTHING WORKER David OSCAR CHEMISTRY [facility] [address] [address], * (ABNORMAL) Arterial Blood Gas (08/22/2023 4:24 AM MACHINE CLOTHING WORKER) Only the most recent of6 resultswithin the time period is included. PH, ARTERIAL 7.46(H) 7.35 - 7.45 08/22/2023 4:36 AM [facility] PCO2, ARTERIAL 39 32 - 45 mmHg 08/22/2023 4:36 AM [facility] PO2, ARTERIAL 85 83 - 108 mmHg 08/22/2023 4:36 AM [facility] HCO3, ARTERIAL 28 21 - 28 mmol/L 08/22/2023 4:36 AM [facility] BASE EXCESS, ARTERIAL 3.7(H) -2.0 - 3.0 08/22/2023 4:36 AM [facility] O2 SATURATION, ARTERIAL 99(H) 94 - 98 % 08/22/2023 4:36 AM [facility] INSPIRED O2 08/22/2023 4:36 AM [facility] Comment:Unit of Measure: Lit ers (L) if <=20; Percent (%) if >20 PATIENT TEMPERATURE 37.0 Degrees C 08/22/2023 4:36 AM [facility] Blood ARTERIAL BLOOD SPECIMEN / Unknown Arterial / Unknown 08/22/2023 4:24 AM MACHINE CLOTHING WORKER 08/22/2023 4:32 AM MACHINE CLOTHING WORKER Troy Trent MD CHEMISTRY [facility] [address] [address], * (ABNORMAL) CALCIUM IONIZED HOSPITAL DRAW ONLY (08/22/2023 4:24 AM MACHINE CLOTHING WORKER) Only the most recent of3 resultswithin the time period is included. CALCIUM,IONIZE D 1.10(L) 1.15 - 1.27 mmol/L 08/22/2023 4:40 AM MACHINE CLOTHING WORKER [facility] Blood BLOOD SPECIMEN / Unknown Arterial / Unknown 08/22/2023 4:24 AM MACHINE CLOTHING WORKER 08/22/2023 4:33 AM MACHINE CLOTHING WORKER David OSCAR CHEMISTRY Performing Organization Address [facility]/ZIP Co de Phone Number [facility] [address] [address], [place] * SCAN-CARDIAC STRIP (08/21/2023 2:20 PM MACHINE CLOTHING WORKER) Scanner OTHER * (ABNORMAL) TRIGLYCERIDES propofol (08/21/2023 4:06 AM MACHINE CLOTHING WORKER) TRIGLYCERIDES 215(H) <150 mg/dL 08/21/2023 4:40 AM MACHINE CLOTHING WORKER [facility] PROVIDER ORDERED STATUS RANDOM 08/21/2023 4:40 AM MACHINE CLOTHING WORKER [facility] Blood BLOOD SPECIMEN / Unknown Non-Lab Venipuncture / Unknown 08/21/2023 4:06 AM MACHINE CLOTHING WORKER 08/21/2023 4:15 AM MACHINE CLOTHING WORKER Michelle Yu MD CHEMISTRY [facility] [address] [address], [place] * CK TOTAL propofol (08/21/2023 4:06 AM MACHINE CLOTHING WORKER) CK,TOTAL 141 26 - 192 IU/L 08/21/2023 4:40 AM MACHINE CLOTHING WORKER [facility] Blood BLOOD SPECIMEN / Unknown Non-Lab Venipuncture / Unknown 08/21/2023 4:06 AM MACHINE CLOTHING WORKER 08/21/2023 4:15 AM MACHINE CLOTHING WORKER Michelle Yu MD CHEMISTRY Performing Organization Address [facility]/ZIP Co de Phone Number [facility] [address] [place] [address], [place] * URINE CULTURE (08/20/2023 9:38 AM MACHINE CLOTHING WORKER) CULTURE No growth (<1,000 CFU/mL) 08/21/2023 7:29 AM MACHINE CLOTHING WORKER [facility] Urine URINE SPECIMEN / Unknown Non-Blood / Unknown 08/20/2023 9:38 AM MACHINE CLOTHING WORKER 08/20/2023 9:52 AM MACHINE CLOTHING WORKER Karel Santiago MD MICROBIOLOGY Performing Organization Address [facility] Phone Number [facility] [address] [place] [address], [place] * (ABNORMAL) UA W/ SEDIMENT EXAM REFLEXED PER CRITERIA (08/20/2023 9:38 AM MACHINE CLOTHING WORKER) COLOR Yellow Yellow Color 08/20/2023 9:57 AM MACHINE CLOTHING WORKER [facility] CLARITY Clear Clear Clarity 08/20/2023 9:57 AM MACHINE CLOTHING WORKER [facility] SPECIFIC GRAVITY,URINE >=1.030(A) 1.010, 1.015, 1.020, 1.025 08/20/2023 9:57 AM MACHINE CLOTHING WORKER [facility] PH,URINE 6.0 6.0, 7.0, 8.0, 5.5, 6.5, 7.5, 8.5 08/20/2023 9:57 AM MACHINE CLOTHING WORKER [facility] UROBILINOGEN, QUALITATIVE Normal Normal EU/dl 08/20/2023 9:57 AM [facility] PROTEIN, URINE Negative Negative mg/dL 08/20/2023 9:57 AM MACHINE CLOTHING WORKER [facility] GLUCOSE, URINE Negative Negative mg/dL 08/20/2023 9:57 AM MACHINE CLOTHING WORKER [facility] KETONES,URINE Trace(A) Negative mg/dL 08/20/2023 9:57 AM MACHINE CLOTHING WORKER [facility] BILIRUBIN,URI NE Negative Negative 08/20/2023 9:57 AM MACHINE CLOTHING WORKER [facility] OCCULT BLOOD,URINE Negative Negative 08/20/2023 9:57 AM MACHINE CLOTHING WORKER [facility] NITRITE Negative Negative 08/20/2023 9:57 AM MACHINE CLOTHING WORKER [facility] LEUKOCYTE ESTERASE Negative Negative 08/20/2023 9:57 AM MACHINE CLOTHING WORKER [facility] [facility] Urine URINE SPECIMEN / Unknown Non-Blood / Unknown 08/20/2023 9:38 AM MACHINE CLOTHING WORKER 08/20/2023 9:52 AM MACHINE CLOTHING WORKER Karel Santiago MD URINE Performing Organization Address [facility] Co de Phone Number [facility] [address] [place] [address], [place] * (ABNORMAL) PLATELET COUNT (08/20/2023 9:09 AM MACHINE CLOTHING WORKER) Only the most recent of4 resultswithin the time period is included. PLATELET COUNT 113(L) 140 - 440 thou/cu mm 08/20/2023 9:33 AM MACHINE CLOTHING WORKER [facility] MPV 9.7 6.5 - 11.0 fL 08/20/2023 9:33 AM MACHINE CLOTHING WORKER [facility] Blood BLOOD SPECIMEN / Unknown Non-Lab Venipuncture / Unknown 08/20/2023 9:09 AM MACHINE CLOTHING WORKER 08/20/2023 9:17 AM MACHINE CLOTHING WORKER Narrative [facility] - 08/20/2023 9:33 AM MACHINE CLOTHING WORKER Obtain before initiating IV heparin therapy if not done within previous 24 hours. Obtain before initiating IV heparin therapy if not done within previous 24 hours. Obtain before initiating IV heparin therapy if not done within previous 24 hours. Miguel Ángel Galvez HEMATOLOGY Performing Organization Address City/[facility]/ZIP Co de Phone Number [facility] [address] [place] [id number], [place] * (ABNORMAL) HEMATOCRIT (08/20/2023 9:09 AM MACHINE CLOTHING WORKER) Only the most recent of2 resultswithin the time period is included. HEMATOCRIT 29.7(L) 33.0 - 51.0 % 08/20/2023 9:33 AM MACHINE CLOTHING WORKER [facility] Blood BLOOD SPECIMEN / Unknown Non-Lab Venipuncture / Unknown 08/20/2023 9:09 AM MACHINE CLOTHING WORKER 08/20/2023 9:17 AM MACHINE CLOTHING WORKER Narrative [facility] - 08/20/2023 9:33 AM MACHINE CLOTHING WORKER Obtain before initiating IV heparin therapy if not done within previous 24 hours. Obtain before initiating IV heparin therapy if not done within previous 24 hours. Obtain before initiating IV heparin therapy if not done within previous 24 hours. Miguel Ángel [facility] HEMATOLOGY Performing Organization Address City/[facility]/ZIP Co de Phone Number [facility] [address] [place] [address], * BUN (08/20/2023 9:09 AM MACHINE CLOTHING WORKER) Pathologist [facility] BUN 20 8 - 23 mg/dL 08/20/2023 10:18 AM MACHINE CLOTHING WORKER [facility] Blood BLOOD SPECIMEN / Unknown Non-Lab Venipuncture / Unknown 08/20/2023 9:09 AM MACHINE CLOTHING WORKER 08/20/2023 9:17 AM MACHINE CLOTHING WORKER [facility] CHEMISTRY Performing Organization Address City/[facility] Co de Phone Number [facility] [address] [place] [address], [place] * CREATININE (08/20/2023 9:09 AM MACHINE CLOTHING WORKER) Only the most recent of2 resultswithin the time period is included. Pathologist [facility] eGFR >90 >90 mL/min/1.7 3m2 08/20/2023 10:18 AM MACHINE CLOTHING WORKER [facility] Comment:As of 2021, eG FR is calculated by the CKD-EPI creatinine equation without race adjustment. ??eGFR can be influenced by muscle mass, exercise, and diet. ??The reported eGFR is an estimation only and is only applicable if the renal function is stable. CREATININE 0.61 0.50 - 0.90 mg/dL 08/20/2023 10:18 AM MACHINE CLOTHING WORKER [facility] Blood BLOOD SPECIMEN / Unknown Non-Lab Venipuncture / Unknown 08/20/2023 9:09 AM MACHINE CLOTHING WORKER 08/20/2023 9:17 AM MACHINE CLOTHING WORKER Miguel Ángel [facility] CHEMISTRY Performing Organization Address [facility] Co de Phone Number [facility] [address] [place] [phone], [place] * (ABNORMAL) LIPID PANEL (08/20/2023 9:09 AM MACHINE CLOTHING WORKER) Pathologist [facility] CHOLESTEROL,TOTAL 118 100 - 199 mg/dL 08/20/2023 4:57 PM MACHINE CLOTHING WORKER [facility] Comment: Cholesterol, Total Reference Ranges Desirable <200 mg/dL Borderline 200-239 mg/dL High >=240 mg/dL TRIGLYCERIDES 208(H) <150 mg/dL 08/20/2023 4:57 PM MACHINE CLOTHING WORKER [facility] HDL CHOLESTEROL 35(L) >40 mg/dL 4:57 PM MACHINE CLOTHING WORKER [facility] NON-HDL CHOLESTEROL 83 <145 mg/dl 08/20/2023 4:57 PM MACHINE CLOTHING WORKER [facility] CHOL/HDL RATIO 3.37 <4.50 08/20/2023 4:57 PM MACHINE CLOTHING WORKER [facility] LDL CHOLESTEROL 41 <=130 mg/dL 08/20/2023 4:57 PM MACHINE CLOTHING WORKER [facility] VLDL CHOLESTEROL 42(H) <=30 mg/dL 08/20/2023 4:57 PM MACHINE CLOTHING WORKER [facility] Blood BLOOD SPECIMEN / Unknown Non-Lab Venipuncture / Unknown 08/20/2023 9:09 AM MACHINE CLOTHING WORKER 08/20/2023 9:17 AM MACHINE CLOTHING WORKER David OSCAR CHEMISTRY Performing Organization Address City/[facility]/ZIP Co de Phone Number [facility] [address] * BLOOD CULTURE (08/20/2023 9:05 AM MACHINE CLOTHING WORKER) Only the most recent of2 resultswithin the time period is included. CULTURE No Growth. 08/24/2023 11:10 AM MACHINE CLOTHING WORKER [facility] Blood BLOOD SPECIMEN / Unknown Butterfly / Unknown 08/20/2023 9:05 AM MACHINE CLOTHING WORKER 08/20/2023 9:14 AM MACHINE CLOTHING WORKER Karel Santiago MD MICROBIOLOGY Performing Organization Address [facility] Co de Phone Number [facility] [address] * MRSA/SA PCR (08/20/2023 8:03 AM MACHINE CLOTHING WORKER) MRSA DNA PCR Negative Negative 08/20/2023 11:23 AM MACHINE CLOTHING WORKER [facility] STAPHYLOCOCCUS AUREUS PCR Negative Negative 08/20/2023 11:23 AM MACHINE CLOTHING WORKER [facility] Other SPECIMEN FROM INTERNAL NOSE / Unknown Non-Blood / Unknown 08/20/2023 8:03 AM MACHINE CLOTHING WORKER 08/20/2023 8:13 AM MACHINE CLOTHING WORKER Narrative [facility] - 08/20/2023 11:23 AM MACHINE CLOTHING WORKER Test result does not preclude MRSA or SA nasal colonization. Karel Santiago MD MICROBIOLOGY Performing Organization Address [facility] Co de Phone Number [facility] [address] [place] [address], * INTUBATION (08/20/2023 7:27 AM MACHINE CLOTHING WORKER) Narrative Alie Westfall MD - 08/20/2023 7:27 AM MACHINE CLOTHING WORKER Alie Westfall MD ? 08/20/2023 ??7:30 AM INTUBATION Date/Time: 08/20/2023 7:27 AM Performed by: Alie Westfall MD Authorized by: Alie Westfall MD ?? Available Backup Proceduralist: ??Michelle Yu MD Indication/Diagnosis: ??Hypoxemic respiratory failure ICU Airway Protocol used: Yes Pre-Procedure Assessment Mallampati Class: ??Unable to assess Mouth Opening: ??Limited} Thyromental Distance: ??Normal Neck ROM: ??Limited Teeth: ??Intact Technique: ??Rapid sequence intubation Oxygenation Strategy: ??HFNC Medications: Etomidate (mg) Etomidate Dose (mg): ??20 Neuromuscular Blockers: Rocuronium (mg) Rocuronium Dose (mg): ??100 Ventilation attempted between induction and intubation?: No ?? Mask Ventilation: ??Not attempted Laryngoscopy via: ??Glidescope Mac Blade Size: ??3 Cricoid Pressure: No ?? Laryngoscopy Attempts: ??1 Cormack-Lehane Grade View: ??1 ETT Type: ??Oral ETT with subglottic suction ETT Size: ??7.0 (Add'l sizes): ??7.0 Secured At (cm): ??22 Measured From: ??Teeth Airway Adjuncts: ??None Post-Procedure Assessment Airway Confirmation via: CO2 detection and auscultation ?? Placement Verification: auscultation and end tidal CO2 ?? Difficulty: ??0 (not difficult) Procedure notable in that SpO2 was not picking up due to poor perfusion from hemodynamic instability. Alie Westfall MD RESPIRATORY CARE OR D * ARTERIAL LINE (08/20/2023 7:26 AM MACHINE CLOTHING WORKER) Narrative Michelle Yu MD - 08/20/2023 7:26 AM MACHINE CLOTHING WORKER Michelle Yu MD ? 08/20/2023 ??7:26 AM ARTERIAL LINE Date/Time: 08/20/2023 7:26 AM Performed by: Michelle Yu MD Authorized by: Michelle Yu MD ?? Consent: ??Consent obtained: ??Verbal Captiva protocol: ??Patient identity confirmed: ??Verbally with patient Indications: ??Indications: hemodynamic monitoring ?? Pre-procedure details: ??Skin preparation: ??Chlorhexidine ??Preparation: Patient was prepped and draped in sterile fashion ?? Sedation: ??Sedation type: ??None Procedure details: ??Location: ??L radial ??Needle gauge: ??20 G ??Number of attempts: ??1 ??Transducer: waveform confirmed ?? Post-procedure details: ??CMS: ??Normal ??Procedure completion: ??Tolerated Michelle Yu MD IV ORD * TSH FOR ADD ON (08/20/2023 4:38 AM MACHINE CLOTHING WORKER) TSH 0.63 0.27 - 4.20 uIU/mL 08/20/2023 7:54 AM MACHINE CLOTHING WORKER [facility] Blood BLOOD SPECIMEN / Unknown Venipuncture / Unknown 08/20/2023 4:38 AM MACHINE CLOTHING WORKER 08/20/2023 4:46 AM MACHINE CLOTHING WORKER Narrative [facility] - 08/20/2023 7:54 AM MACHINE CLOTHING WORKER In Adults, TSH values between 5.00 and 10.00 uIU/ml do not necessarily indicate the presence of Hypothyroidism. Correlation with clinical findings such as presence of goiter and/or Thyroperoxidase (TPO) Antibody may be helpful. For more information please refer to NAYANA 2004; 291: 228-238. Miguel Ángel [facility] CHEMISTRY Performing Organization Address City/[facility]/ZIP Co de Phone Number [facility] [address] [place] [address], * (ABNORMAL) LACTATE VENOUS (08/20/2023 1:08 AM MACHINE CLOTHING WORKER) Only the most recent of2 resultswithin the time period is included. LACTATE,VENOUS 2.1(H) 0.5 - 2.0 mmol/L 08/20/2023 2:02 AM MACHINE CLOTHING WORKER [facility] Blood BLOOD SPECIMEN / Unknown Venipuncture / Unknown 08/20/2023 1:08 AM MACHINE CLOTHING WORKER 08/20/2023 1:22 AM MACHINE CLOTHING WORKER Troy Trent MD CHEMISTRY [facility] [address] [phone], * (ABNORMAL) COMPREHENSIVE BLOOD GAS VENOUS (08/19/2023 11:14 PM MACHINE CLOTHING WORKER) PH, VENOUS 7.43 7.32 - 7.43 08/19/2023 11:14 PM MACHINE CLOTHING WORKER [facility] PCO2, VENOUS 48 41 - 51 mmHg 08/19/2023 11:[address] [facility] PO2, VENOUS 47(H) 35 - 40 mmHg 08/19/2023 11:14 PM MACHINE CLOTHING WORKER [facility] HCO3,VENOUS 32(H) 22 - 29 mmol/L 08/19/2023 11:14 PM MACHINE CLOTHING WORKER [facility] BASE EXCESS, VENOUS, POCT 6.6(H) -2.0 - 3.0 08/19/2023 11:14 PM [facility] O2 SATURATION, VENOUS 81(H) 70 - 75 % 08/19/2023 11:14 PM [facility] INSPIRED O2 100 08/19/2023 11:[address] [facility] Comment:Unit of Measure: Lit ers (L) if <=20; Percent (%) if >20 PATIENT TEMPERATURE 37.0 Degrees C 08/19/2023 11:14 PM [facility] HEMOGLOBIN,BLOO D GAS 11.6(L) 12.0 - 16.0 g/dL 08/19/2023 11:[address] [facility] CHLORIDE 102 98 - 107 mmol/L 08/19/2023 11:14 PM [facility] Blood BLOOD SPECIMEN / Unknown 08/19/2023 11:14 PM MACHINE CLOTHING WORKER 08/19/2023 11:15 PM MACHINE CLOTHING WORKER Troy Trent MD CHEMISTRY [facility] [address] [place] [address], * SCAN-CARDIAC STRIP (08/19/2023 7:13 PM MACHINE CLOTHING WORKER) Scanner OTHER * SCAN-CARDIAC STRIP (08/19/2023 7:13 PM MACHINE CLOTHING WORKER) Scanner OTHER * SCAN-CARDIAC STRIP (08/19/2023 7:13 PM MACHINE CLOTHING WORKER) Scanner OTHER * SCAN-CARDIAC STRIP (08/19/2023 7:13 PM MACHINE CLOTHING WORKER) Scanner OTHER * SCAN-CARDIAC STRIP (08/19/2023 7:12 PM MACHINE CLOTHING WORKER) Scanner OTHER * SCAN-CARDIAC STRIP (08/19/2023 7:12 PM MACHINE CLOTHING WORKER) Scanner OTHER * SCAN-CARDIAC STRIP (08/19/2023 7:12 PM MACHINE CLOTHING WORKER) Scanner OTHER * SCAN-CARDIAC STRIP (08/19/2023 7:12 PM MACHINE CLOTHING WORKER) Scanner OTHER * SCAN-CARDIAC STRIP (08/19/2023 10:08 AM MACHINE CLOTHING WORKER) Scanner OTHER * SCAN-CARDIAC STRIP (08/19/2023 10:08 AM MACHINE CLOTHING WORKER) Scanner OTHER * XR ABDOMEN 1 VIEW PORTABLE (08/19/2023 9:09 AM MACHINE CLOTHING WORKER) Anatomical Region Laterality Modality Abdomen Digital Radiogra phy 08/20/2023 1:06 AM MACHINE CLOTHING WORKER Narrative 08/20/2023 1:06 AM MACHINE CLOTHING WORKER For Patients: ??As a result of the 21st Century Cures Act, medical imaging exams and procedure reports are released immediately into your electronic medical record. ??You may view this report before your referring provider. ??If you have questions, please contact your health care provider. Indication: Abnormal bowel function. Technique: Abdomen 1 view. Comparison: None. Findings/Impression: Bowel: Bowel pattern is normal. Soft tissues: No sign of free air. ??No sign of soft tissue mass. ??No suspicious calcifications. Bones: Unremarkable for age. Dictated by Vitor Dinh MD @ Aug ??2023 ??1:06AM (Electronically Signed) ?? Procedure Note Vitor Dinh MD - 08/20/2023 For Patients: As a result of the Cures Act, medical imagingexams and procedure reports are released immediately into your electronicmedical record. You may view this report before your referring provider.If you have questions, please contact your health care provider. Indication: Abnormal bowel function. Technique: Abdomen 1 view. Comparison: None. Findings/Impression: Bowel: Bowel pattern is normal. Soft tissues: No sign of free air. No sign of soft tissue mass. Nosuspicious calcifications. Bones: Unremarkable for age. Dictated by Vitor Dinh MD @ Aug 20 2023 1:06AM (Electronically Signed) Mario Alberto [facility] * ECHO KEITH INTRAOPERATIVE (08/18/2023 1:07 PM MACHINE CLOTHING WORKER) EJECTION FRACTION 60 - 65% Anatomical Region Laterality Modality Computed Radiogr aphy 08/18/2023 7:41 AM MACHINE CLOTHING WORKER Narrative 08/19/2023 1:22 PM MACHINE CLOTHING WORKER TRANSESOPHAGEAL ECHOCARDIOGRAM ANGELA CUTLER ? Accession#: ?? [id number] : ?1960 62 years Study Date: ?? 08/18/2023 7:41:20 AM Gender: F ?BP: ? 106/58 mmHg Height: 160.00 cm ?BSA: ?1.70 m? ? ? Weight: 67.00 kg ? Tech: ? Referring MD: TROY TRENT Site: ? [facility] Reading Location: [facility] Patient Location: Procedure: KEITH. Indication for study: Intraoperative KEITH for CABG Cardiac Rhythm: Normal sinus.Study quality: Final Impressions: 1. Normal left ventricular size, normal global systolic function with an estimated EF of 60 - 65%. 2. Mild concentric left ventricular hypertrophy. 3. Mildly enlarged left atrium. 4. The aortic valve is sclerotic. 5. Mild-moderate tricuspid regurgitation. 6. S/P CABG x 3 (Rey to LAD, SVG to OM1 and OM3) ?Post bypass EKG changes without significant WMA noted. Procedure comments: Indications, goals, risks and alternatives of the procedure were discussed with the patient and informed consent was obtained. The patient received general anesthesia. See procedural record for anesthesia details. Prior to performance of procedure, time out was called to accurately identify the patient and procedure. The Echo probe was passed without difficulty. KEITH was performed. The patient developed no apparent complications during the procedure. Estimated Blood Loss: 0 ml Versed: Specimen Collected: ?Proceduralist: Hunter Frye MD Post Procedure Findings Chamber Sizes and Function Normal left ventricular size, normal global systolic function with an estimated EF of 60 - 65%. Mild concentric left ventricular hypertrophy. Left atrial size is mildly enlarged. Right ventricular cavity size is normal, global systolic RV function is normal. The right atrium is mildly enlarged. Valves, RV Pressures and Diastolic Function The aortic valve is sclerotic. Tricuspid regurgitation is mild-moderate. MEASUREMENTS AND CALCULATIONS 2-D Measurements and LV Function: HR 64 bpm . ??Final (Updated) ?? Procedure Note Hunter Frye Jr., MD - 08/19/2023 TRANSESOPHAGEAL ECHOCARDIOGRAM ANGELA CUTLER : 1960 62 years Study Date: 08/18/2023 7:41:20 AM Gender: F BP: 106/58 mmHg Height: 160.00 cm BSA: 1.70 m? ? ? Weight: 67.00 kg Tech: Referring MD: TROY TRENT Site: [facility] Reading Location: [facility] Patient Location: Procedure: KEITH. Indication for study: Intraoperative KEITH for CABG Cardiac Rhythm: Normal sinus.Study quality: Final Impressions: 1. Normal left ventricular size, normal global systolic function with anestimated EF of 60 - 65%. 2. Mild concentric left ventricular hypertrophy. 3. Mildly enlarged left atrium. 4. The aortic valve is sclerotic. 5. Mild-moderate tricuspid regurgitation. 6. S/P CABG x 3 (Rey to LAD, SVG to OM1 and OM3) Post bypass EKG changes without significant WMA noted. Procedure comments: Indications, goals, risks and alternatives of theprocedure were discussed with the patient and informed consent wasobtained. The patient received general anesthesia. See procedural recordfor anesthesia details. Prior to performance of procedure, time out wascalled to accurately identify the patient and procedure. The Echo probewas passed without difficulty. KEITH was performed. The patient developed noapparent complications during the procedure. Estimated Blood Loss: 0 ml Versed: Specimen Collected: Proceduralist: Hunter Frye MD Post Procedure Findings Chamber Sizes and Function Normal left ventricular size, normal global systolic function with anestimated EF of 60 - 65%. Mild concentric left ventricular hypertrophy.Left atrial size is mildly enlarged. Right ventricular cavity size isnormal, global systolic RV function is normal. The right atrium is mildlyenlarged. Valves, RV Pressures and Diastolic Function The aortic valve is sclerotic. Tricuspid regurgitation is mild-moderate. MEASUREMENTS AND CALCULATIONS 2-D Measurements and LV Function: HR 64 bpm . Final (Updated) Troy Trent MD ECHO ORD * (ABNORMAL) Thrombin Time - Immediate Postop (08/18/2023 12:36 PM MACHINE CLOTHING WORKER) THROMBIN TIME >80(H) <16 sec 08/18/2023 1:23 PM MACHINE CLOTHING WORKER [facility]ITAL[facility]thaYantraCAR[facility] Blood BLOOD SPECIMEN / Unknown Non-Lab Venipuncture / Unknown 08/18/2023 12:36 PM MACHINE CLOTHING WORKER 08/18/2023 12:46 PM MACHINE CLOTHING WORKER Troy Trent MD HEMATOLOGY [facility] [address] [address], [place] * Fibrinogen, Quantitative - Immediate Postop (08/18/2023 12:36 PM MACHINE CLOTHING WORKER) Only the most recent of2 resultswithin the time period is included. FIBRINOGEN,MARIBELL MAURO 285 193 - 401 mg/dL 08/18/2023 1:23 PM MACHINE CLOTHING WORKER [facility] Blood BLOOD SPECIMEN / Unknown Non-Lab Venipuncture / Unknown 08/18/2023 12:36 PM MACHINE CLOTHING WORKER 08/18/2023 12:46 PM MACHINE CLOTHING WORKER Troy Trent MD HEMATOLOGY [facility] [address] [address], [place] * CVC TRIPLE LUMEN, HCHG CATH INFUSION PR100, HCHG ANES US GUIDE FOR VASC ACCESS, HCHG KIT MONITORINGPR5, HCHG TUBING PR5, HCHG DRSG PR5, HCHG DRSG PR1, HCHG KIT PR5 (08/18/2023 12:17 PM MACHINE CLOTHING WORKER) Narrative Hunter Frye Jr., MD - 08/18/2023 12:17 PM MACHINE CLOTHING WORKER Hunter Frye Jr., MD ? 08/18/2023 12:18 PM CVC Patient location during procedure: OR Start time: 08/18/2023 7:44 AM End time: 08/18/2023 7:52 AM Indications: CVP monitoring and vascular access Completed: patient identified, risks and benefits discussed, consent obtained, hand hygiene performed, gown, full-body drape, chloraprep used and completely dried prior to procedure, cap, mask, gloves and timeout performed CVC Patient position: Trendelenburg Laterality: right Site: internal jugular Ultrasound guidance: live ultrasound, ultrasound permanent image saved and sterile gel and probe cover used in ultrasound-guided central venous catheter insertion. Needle localization (ultrasound): selected vessel patent and needle visualized entering selected vessel. Confirmation: wire visualized in vein by ultrasound Port Insertion: all ports aspirated and all ports flushed easily Securement/Dressing: Biopatch applied, line sutured in place, dressing applied Catheter Catheter size: 7 Fr Number of Lumens: triple lumenno Hunter Frye Jr., MD ANESTHESIA PX NOTE ORDERABLES * HCHG CATH PR5, HCHG ANES US GUIDE FOR VASC ACCESS, HCHG TUBING PR1, HCHG TUBING PR20, HCHG DRSG PR1, HCHG DRSG PR5, HCHG KIT PR5 (08/18/2023 12:17 PM MACHINE CLOTHING WORKER) Narrative Hunter Frye Jr., MD - 08/18/2023 12:17 PM MACHINE CLOTHING WORKER Hunter Frye Jr., MD ? 08/18/2023 12:17 PM Arterial Line Patient location during procedure: OR Start time: 08/18/2023 7:38 AM End time: 08/18/2023 7:39 AM Indications: lab sampling and monitoring Staffing Preanesthetic Checklist Completed: patient identified, risks and benefits discussed and consent obtained Arterial Line Patient position: supine. ??Comment:. Laterality: left Site: radial Ultrasound guidance: live ultrasound and ultrasound permanent image saved. Needle localization (ultrasound): selected vessel patent and needle visualized entering selected vessel. Securement/dressing: Biopatch applied, dressing applied. ??Comment: Vessel Electrical Fitter Additional supplies used to locate vessel: no Needle Catheter size: 20 G. ??Comment:. Catheter length: 4.5 cm. ??Comment: Lot Number: [employer] Flash Events: no complications. Additional Notes Chloraprep used. Hunter Frye Jr., MD ANESTHESIA PX NOTE ORDERABLES * TRANSFUSE CRYOPRECIPITATE (NURSE COMMUNICATION ORDER) (08/18/2023 12:14 PM MACHINE CLOTHING WORKER) Blood BLOOD SPECIMEN / Unknown Hunter Frye Jr., MD NURSING BLOOD BANK * TRANSFUSE CRYOPRECIPITATE (NURSE COMMUNICATION ORDER) (08/18/2023 12:08 PM MACHINE CLOTHING WORKER) Blood BLOOD SPECIMEN / Unknown Hunter Frye Jr., MD NURSING BLOOD BANK * TRANSFUSE PLASMA (NURSE COMMUNICATION ORDER) (08/18/2023 12:00 PM MACHINE CLOTHING WORKER) Blood BLOOD SPECIMEN / Unknown Hunter Frye Jr., MD NURSING BLOOD BANK * TRANSFUSE PLASMA (NURSE COMMUNICATION ORDER) (08/18/2023 11:55 AM MACHINE CLOTHING WORKER) Blood BLOOD SPECIMEN / Unknown Hunter Frye Jr., MD NURSING BLOOD BANK * TRANSFUSE PLASMA (NURSE COMMUNICATION ORDER) (08/18/2023 11:52 AM MACHINE CLOTHING WORKER) Blood BLOOD SPECIMEN / Unknown Hunter Frye Jr., MD NURSING BLOOD BANK * CRYOPRECIPITATE ORDER, 2 Pools (08/18/2023 11:40 AM MACHINE CLOTHING WORKER) QUANTITY 2 08/18/2023 11:40 AM MACHINE CLOTHING WORKER [employer] [facility] Blood BLOOD SPECIMEN / Unknown 08/18/2023 11:37 AM MACHINE CLOTHING WORKER Troy Trent MD BLOOD BANK Performing Organization Address City/[facility]/ZIP Co de Phone Number [facility] [address] [place] [address], [place] [phone] * CRYOPRECIPITATE EA UNIT (08/18/2023 11:39 AM MACHINE CLOTHING WORKER) Only the most recent of2 resultswithin the time period is included. PRODUCT BLOOD TYPE O Rh Positive [facility] PRODUCT ID NUMBER [id number] [facility] PRODUCT STATUS Transfused [facility] [facility] BLOOD BANK PRODUCT DESCRIPTION CRYO [facility] BLOOD B[facility] PRODUCT CODE [id number] [place] [employer]-[facility] BLOOD BANK ISSUE DATE/TIME 08/18/23 11:57 [facility]LOOD B[facility] Troy Trent MD BLOOD BANK Performing Organization Address City/[facility]/ZIP Co de Phone Number [facility] [address] [place] [id number], [place] [phone] * TRANSFUSE RBC (NURSE COMMUNICATION ORDER) (08/18/2023 10:28 AM MACHINE CLOTHING WORKER) Blood BLOOD SPECIMEN / Unknown Hunter Frye Jr., MD NURSING BLOOD BANK * TRANSFUSE RBC (NURSE COMMUNICATION ORDER) (08/18/2023 10:28 AM MACHINE CLOTHING WORKER) Blood BLOOD SPECIMEN / Unknown Hunter Frye Jr., MD NURSING BLOOD BANK * RBC W/O TYPE & SCREEN (08/18/2023 8:16 AM MACHINE CLOTHING WORKER) QUANTITY 2 08/18/2023 8:1 6 AM MACHINE CLOTHING WORKER [facility] BLOOD BANK Blood BLOOD SPECIMEN / Unknown 08/18/2023 8:14 AM MACHINE CLOTHING WORKER Troy Trent MD BLOOD BANK [facility] BLOOD BANK [address] [place] [id number], * KEITH (08/18/2023 8:02 AM MACHINE CLOTHING WORKER) Narrative Hunter Frye Jr., MD - 08/18/2023 8:02 AM MACHINE CLOTHING WORKER Hunter Frye Jr., MD ? 08/18/2023 12:19 PM KEITH Start time: 08/18/2023 8:02 AM Completed: Patient identified, risks and benefits discussed, monitors and equipment assessed and anesthesia consent obtained. General Procedure Information Diagnostic Indications for Echo: assessment of surgical repair, hemodynamic monitoring and assessment of cardiac structure and function. Location performed: OR procedure room Probe Insertion: easy Inserted by: AnesthesiologistProbe Type: multiplane Report generated by: AnesthesiologistIntubated: yes Stomach suctioned: no Bite block not inserted Anesthesia Information Anesthesiologist: ??Hunter Frye Jr., MD Echocardiogram Comments: ? INTRAOPERATIVE TRANSESOPHAGEAL ECHOCARDIOGRAM Name: Angela Cutler Date of service: ??08/18/2023 Indication: ??Procedure(s): INTRA-OPEARTIVE PERFORMED BY DR. FRYE, STERNOTOMY, TAKEDOWN OF LEFT INTERNAL MAMMARY ARTERY, BYPASS CORONARY ARTERY X3 , ENDOSCOPIC SAPHENOUS VEIN HARVEST OF THE LEFT LEG, TEMPORARY PLACEMENT OF VENTRICLAR PACING WIRES. Video documentation of the exam on [employer] The procedure, benefits, risks, and alternatives were explained to the patient. ??She voiced understanding of the information and agreed to proceed with the procedure. The KEITH probe was placed without difficulty after the patient was asleep and intubated. The patient was adequately deaired with KEITH guidance prior to separation from CPB. Probe removed without difficulty. Full report in [employer]. Hunter Frye MD [facility] Hunter Frye Jr., MD ANESTHESIA PX NOTE ORDERABLES * ETT (08/18/2023 7:54 AM MACHINE CLOTHING WORKER) Narrative Yue Shukla, ACADEMY EDUCATION DIRECTOR Student - 08/18/2023 7:54 AM MACHINE CLOTHING WORKER Yue Shukla, ACADEMY EDUCATION DIRECTOR Student ? 08/18/2023 ??7:55 AM Procedure: ETT Patient location during procedure: OR ETT Properties Mask Ventilation: easy Final Technique: direct laryngoscopy Type: straight Location: oral Cuffed: yes Tube Size: 7.0 mm Stylet: yes Laryngoscope Blade: Blount Blade Size: 2 Cormack-Lehane Grade View: 1 Insertion Attempts: 1 Placement Verification: auscultation, end tidal CO2 and symmetrical chest wall movement Assessment: pharynx clear, atraumatic and dentition unchanged Secured at: 22 Measured From: lips Tooth guard used and removed: yes Difficulty: 0 (not difficult) Hunter Frye Jr., MD ANESTHESIA PX NOTE ORDERABLES * Type and Screen (08/18/2023 6:27 AM MACHINE CLOTHING WORKER) Only the most recent of2 resultswithin the time period is included. ABORH O Rh Negative 08/18/2023 7:14 AM [facility] [employer] LAB BLOOD BANK ANTIBODY SCREEN Negative Negative 08/18/2023 7:14 AM [facility] [employer] LAB BLOOD BANK SPECIMEN EXPIRATION DATE/TIME 08/21/23 23:59 08/18/2023 7:14 AM [facility] [employer] LAB BLOOD BANK Blood BLOOD SPECIMEN / Unknown Venipuncture / Unknown 08/18/2023 6:27 AM MACHINE CLOTHING WORKER 08/18/2023 6:38 AM MACHINE CLOTHING WORKER [facility]OD [facility] [address] [place] [address], * (ABNORMAL) Glucose, Fasting (08/18/2023 6:27 AM MACHINE CLOTHING WORKER) GLUCOSE 113(H) 70 - 99 mg/dL 08/18/2023 7:25 AM MACHINE CLOTHING WORKER [facility] Blood BLOOD SPECIMEN / Unknown Venipuncture / Unknown 08/18/2023 6:27 AM MACHINE CLOTHING WORKER 08/18/2023 6:38 AM MACHINE CLOTHING WORKER [employer] CHEMISTRY Performing Organization Address City/[facility]/ZIP Co de Phone Number [facility] [address] [place] [address], * SCAN-CARDIAC STRIP (08/18/2023 12:00 AM MACHINE CLOTHING WORKER) Narrative 08/18/2023 12:00 AM MACHINE CLOTHING WORKER Ordered by an unspecified provider. Other Clinical Staff OTHER * SCAN-CARDIAC STRIP (08/18/2023 12:00 AM MACHINE CLOTHING WORKER) Narrative 08/18/2023 12:00 AM MACHINE CLOTHING WORKER Ordered by an unspecified provider. Other Clinical Staff OTHER * US CAROTID DUPLEX BILATERAL (08/15/2023 10:49 AM MACHINE CLOTHING WORKER) Anatomical Region Laterality Modality CAROTID, NECK Ultrasound 08/15/2023 9:46 AM MACHINE CLOTHING WORKER Narrative 08/15/2023 2:30 PM MACHINE CLOTHING WORKER VASCULAR ULTRASOUND REPORT ANGELA CUTLER Accession#: ?? [id number] : ?1960 ??Study Date: ?? 08/15/2023 9:46:17 AM Age: ?62 years ?? Tech: ? CAR Gender: F ?Referring MD: FLOWER BEEBE Site: [facility] Vascular Center Study performed: ?Carotid Indication for Study: for cardiac pre-op Study Quality: ?Good TECHNIQUE: The extracranial carotid arteries, vertebral arteries and subclavian arteries were examined per exam protocol with duplex ultrasound, color-flow and spectral Doppler. Flow velocities including peak systolic (PSV), end diastolic (EDV), and velocity ratios if applicable were documented at sites per exam protocol. Degrees of stenosis in the internal carotid artery (ICA) were determined using SRU 2002 Consensus Panel Criteria. IMPRESSION: 1. Based on the ICA velocities, ICA/CCA ratio, and 2D images there is no significant disease in the right internal carotid artery and there is no significant internal carotid artery disease in the left internal carotid artery. 2. Normal antegrade flow within bilateral vertebral arteries. 3. Multiphasic flow within bilateral subclavian arteries. COMPARISON: No prior study available for comparison. RIGHT FINDINGS: Antegrade flow in the right vertebral artery. Normal multiphasic right subclavian artery flow. LEFT FINDINGS: Antegrade flow in the left vertebral artery. Normal multiphasic left subclavian artery flow. MEASUREMENTS: +--------+--------+------+--------+--------+ RIGHT ?? RIGHT ?LEFT ?LEFT ?? +--------+--------+------+--------+--------+ PSV cm/s EDV cm/s Vessel PSV cm/s EDV cm/s +--------+--------+------+--------+--------+ ??112 ? 32 ?? P. CCA ?? 92 ? 28 ?? +--------+--------+------+--------+--------+ ?? 79 ? 25 ?? D. CCA ?? 83 ? 28 ?? +--------+--------+------+--------+--------+ ?? 42 ? 18 ?? P. ICA ?? 69 ? 30 ?? +--------+--------+------+--------+--------+ ?? 66 ? 32 ?? M. ICA ?? 68 ? 28 ?? +--------+--------+------+--------+--------+ ?? 74 ? 39 ?? D. ICA ?? 76 ? 31 ?? +--------+--------+------+--------+--------+ ?? 87 ? 15 ?? ECA ?107 ? 23 ?? +--------+--------+------+--------+--------+ +-----+ +----+ RIGHT ? LEFT +-----+ +----+ 95 ?? Subclavian Artery (cm/s) 94 +-----+ +----+ 36 ?? Vertebral Artery (cm/s) 40 +-----+ +----+ 0.8 ? ICA/CCA Ratio ? 0.8 +-----+ +----+ Fredo Beatty MD. Electronically signed on 08/15/2023 2:30:12 PM This study was performed and interpreted by a service accredited by the Intersocietal Accreditation Commission (IAC/Vascular), [email or web address] Report generated by [employer]. ??Final ?? Procedure Note Fredo Beatty MD - 08/15/2023 VASCULAR ULTRASOUND REPORT ANGELA CUTLER : 1960 Study Date: 08/15/2023 9:46:17 AM Age: 62 years Tech: CAR Gender: F Referring MD: FLOWER BEEBE Site: [facility] Vascular Center Study performed: Carotid Indication for Study: for cardiac pre-op Study Quality: Good TECHNIQUE: The extracranial carotid arteries, vertebral arteries and subclavianarteries were examined per exam protocol with duplex ultrasound,color-flow and spectral Doppler. Flow velocities including peak systolic(PSV), end diastolic (EDV), and velocity ratios if applicable weredocumented at sites per exam protocol. Degrees of stenosis in the internalcarotid artery (ICA) were determined using SRU 2002 Consensus PanelCriteria. IMPRESSION: 1. Based on the ICA velocities, ICA/CCA ratio, and 2D images there is nosignificant disease in the right internal carotid artery and there is nosignificant internal carotid artery disease in the left internal carotidartery. 2. Normal antegrade flow within bilateral vertebral arteries. 3. Multiphasic flow within bilateral subclavian arteries. COMPARISON: No prior study available for comparison. RIGHT FINDINGS: Antegrade flow in the right vertebral artery. Normal multiphasic rightsubclavian artery flow. LEFT FINDINGS: Antegrade flow in the left vertebral artery. Normal multiphasic leftsubclavian artery flow. MEASUREMENTS: +--------+--------+------+--------+--------+ RIGHT RIGHT LEFT LEFT +--------+--------+------+--------+--------+ PSV cm/s EDV cm/s Vessel PSV cm/s EDV cm/s +--------+--------+------+--------+--------+ 112 32 P. CCA 92 28 +--------+--------+------+--------+--------+ 79 25 D. CCA 83 28 +--------+--------+------+--------+--------+ 42 18 P. ICA 69 30 +--------+--------+------+--------+--------+ 66 32 M. ICA 68 28 +--------+--------+------+--------+--------+ 74 39 D. ICA 76 31 +--------+--------+------+--------+--------+ 87 15 ECA 107 23 +--------+--------+------+--------+--------+ +-----+ +----+ RIGHT LEFT +-----+ +----+ 95 Subclavian Artery (cm/s) 94 +-----+ +----+ 36 Vertebral Artery (cm/s) 40 +-----+ +----+ 0.8 ICA/CCA Ratio 0.8 +-----+ +----+ Fredo Beatty MD. Electronically signed on 08/15/2023 2:30:12 PM This study was performed and interpreted by a service accredited by theIntersocietal Accreditation Commission (IAC/Vascular),[email or web address] Report generated by [employer]. Final [employer] [facility] US * US VEIN MAPPING LOWER EXTREMITY BILATERAL (08/15/2023 10:47 AM MACHINE CLOTHING WORKER) Anatomical Region Laterality Modality LEGS, LEG L, LEG R Ultrasound 08/15/2023 9:54 AM MACHINE CLOTHING WORKER Narrative 08/15/2023 2:36 PM MACHINE CLOTHING WORKER VASCULAR ULTRASOUND REPORT ANGELA CUTLER Accession#: ?? [id number] : ?1960 ??Study Date: ?? 08/15/2023 9:54:32 AM Age: ?62 years ?? Tech: ? CAR Gender: F ?Referring MD: FLOWER BEEBE Site: [facility] Vascular Center Study performed: ?Vein mapping, (bilateral). Indication for study: for cardiac pre-op Study Quality: ?Good TECHNIQUE: Lower/upper extremity veins were examined with duplex ultrasound, color-flow and spectral Doppler per exam protocol. Vein compressibility by transducer pressure was used to evaluate presence/absence of DVT/SVT. Venous flow and competence was evaluated by flow augmentation maneuvers per exam protocol. Insufficiency studies were performed with the patient in upright position, with vein diameters measured in mm, and reflux. IMPRESSION: 1. Bilateral lower extremity superficial venous mapping with diameters outlined below. The greater and small saphenous veins are patent and compressible throughout. COMPARISON: No prior study available for comparison. FINDINGS: Bilateral lower extremity GSV and SSV documented with no sonoraphic evidence of SVT and with measurements below. MEASUREMENTS: +---+--------+-----+------+--------+----+------+ ?? RIGHT ?? RIGHT RIGHT ??LEFT ?? LEFT LEFT ?? Compress DVT Reflux Compress DVT Reflux ? SVT (secs) ? SVT (secs) +---+--------+-----+------+--------+----+------+ CFV ??yes ?? None 0.0 ?yes ?? None 0.0 ?? +---+--------+-----+------+--------+----+------+ Vein Map +--------+--------+------+ +--------+--------+------+ RIGHT ?LEFT ? +--------+--------+------+ +--------+--------+------+ Compress Diameter Reflux ? Compress Diameter Reflux ?(mm) ?? (secs) ?(mm) ?? (secs) +--------+--------+------+ +--------+--------+------+ ??yes ?6.4 ?? 0.0 ? SFJ ?yes ?5.2 ?? 0.0 ?? +--------+--------+------+ +--------+--------+------+ ??yes ?3.6 ? GSV PROX THIGH ??yes ?2.4 ? +--------+--------+------+ +--------+--------+------+ ??yes ?2.5 ?? 0.0 ?? GSV MID THIGH ??yes ?2.5 ?? 0.0 ?? +--------+--------+------+ +--------+--------+------+ ??yes ?3.2 ? GSV DIST THIGH ??yes ?2.5 ? +--------+--------+------+ +--------+--------+------+ ??yes ?2.5 ? GSV KNEE ?yes ?3.0 ? +--------+--------+------+ +--------+--------+------+ ??yes ?1.6 ? GSV UPPER CALF ??yes ?1.5 ? +--------+--------+------+ +--------+--------+------+ ??yes ?1.6 ? GSV MID CALF ??yes ?1.5 ? +--------+--------+------+ +--------+--------+------+ ??yes ?2.2 ? GSV LOW CALF ??yes ?1.6 ? +--------+--------+------+ +--------+--------+------+ ??yes ?2.2 ? SPJ ?yes ?2.9 ? +--------+--------+------+ +--------+--------+------+ ??yes ?1.5 ? SSV PRX CALF ??yes ?1.8 ? +--------+--------+------+ +--------+--------+------+ ??yes ?1.7 ?? 0.0 ?? SSV MID CALF ??yes ?1.5 ?? 0.0 ?? +--------+--------+------+ +--------+--------+------+ ??yes ?1.6 ? SSV DIST CALF ??yes ?1.7 ? +--------+--------+------+ +--------+--------+------+ = Can't evaluate Nader Segovia MD. [employer] Electronically signed on 08/15/2023 2:36:03 PM This study was performed and interpreted by a service accredited by the Intersocietal Accreditation Commission (IAC/Vascular), [email or web address] Report generated by [employer]. ??Final ?? Procedure Note Nader Segovia MD - 08/15/2023 VASCULAR ULTRASOUND REPORT ANGELA CUTLER : 1960 Study Date: 08/15/2023 9:54:32 AM Age: 62 years Tech: CAR Gender: F Referring MD: FLOWER BEEBE Site: [facility] Vascular Center Study performed: Vein mapping, (bilateral). Indication for study: for cardiac pre-op Study Quality: Good TECHNIQUE: Lower/upper extremity veins were examined with duplex ultrasound,color-flow and spectral Doppler per exam protocol. Vein compressibility bytransducer pressure was used to evaluate presence/absence of DVT/SVT.Venous flow and competence was evaluated by flow augmentation maneuversper exam protocol. Insufficiency studies were performed with the patientin upright position, with vein diameters measured in mm, and reflux. IMPRESSION: 1. Bilateral lower extremity superficial venous mapping with diametersoutlined below. The greater and small saphenous veins are patent andcompressible throughout. COMPARISON: No prior study available for comparison. FINDINGS: Bilateral lower extremity GSV and SSV documented with no sonoraphicevidence of SVT and with measurements below. MEASUREMENTS: +---+--------+-----+------+--------+----+------+ RIGHT RIGHT RIGHT LEFT LEFT LEFT Compress DVT Reflux Compress DVT Reflux SVT (secs) SVT (secs) +---+--------+-----+------+--------+----+------+ CFV yes None 0.0 yes None 0.0 +---+--------+-----+------+--------+----+------+ Vein Map +--------+--------+------+ +--------+--------+------+ RIGHT LEFT +--------+--------+------+ +--------+--------+------+ Compress Diameter Reflux Compress Diameter Reflux (mm) (secs) (mm) (secs) +--------+--------+------+ +--------+--------+------+ yes 6.4 0.0 SFJ yes 5.2 0.0 +--------+--------+------+ +--------+--------+------+ yes 3.6 GSV PROX THIGH yes 2.4 +--------+--------+------+ +--------+--------+------+ yes 2.5 0.0 GSV MID THIGH yes 2.5 0.0 +--------+--------+------+ +--------+--------+------+ yes 3.2 GSV DIST THIGH yes 2.5 +--------+--------+------+ +--------+--------+------+ yes 2.5 GSV KNEE yes 3.0 +--------+--------+------+ +--------+--------+------+ yes 1.6 GSV UPPER CALF yes 1.5 +--------+--------+------+ +--------+--------+------+ yes 1.6 GSV MID CALF yes 1.5 +--------+--------+------+ +--------+--------+------+ yes 2.2 GSV LOW CALF yes 1.6 +--------+--------+------+ +--------+--------+------+ yes 2.2 SPJ yes 2.9 +--------+--------+------+ +--------+--------+------+ yes 1.5 SSV PRX CALF yes 1.8 +--------+--------+------+ +--------+--------+------+ yes 1.7 0.0 SSV MID CALF yes 1.5 0.0 +--------+--------+------+ +--------+--------+------+ yes 1.6 SSV DIST CALF yes 1.7 +--------+--------+------+ +--------+--------+------+ = Can't evaluate Nader Segovia MD. [employer] Electronically signed on 08/15/2023 2:36:03 PM This study was performed and interpreted by a service accredited by theIntersocietal Accreditation Commission (IAC/Vascular),[email or web address] Report generated by [employer]. Final [employer] [facility] US * US ARTERIAL UPPER EXTREMITY BILATERAL (08/15/2023 10:44 AM MACHINE CLOTHING WORKER) Anatomical Region Laterality Modality ARMS, ARM L, ARM R Ultrasound 08/15/2023 9:59 AM MACHINE CLOTHING WORKER Narrative 08/15/2023 2:36 PM MACHINE CLOTHING WORKER VASCULAR ULTRASOUND REPORT ANGELA CUTLER Accession#: ?? [id number] : ?1960 ??Study Date: ?? 08/15/2023 9:59:00 AM Age: ?62 years ?? Tech: ? CAR Gender: F ?Referring MD: FLOWER BEEBE Site: [facility] Vascular Center Study performed: ?Upper extremity duplex US, segmental pressures (WBI), ?palmar arch testing, (bilateral). Indication for study: for cardiac pre-op Study Quality: ?Good TECHNIQUE: Lower/upper extremity arteries were examined per exam protocol by duplex ultrasound, color-flow and spectral Doppler. Peak systolic velocities (PSV), Doppler waveform quality, velocity ratios and vessel size in cm, were documented at protocol specific sites. Physiologic data including segmental pressures, ankle/brachial index (JADON), digit PPG recordings, laser Doppler flowmetry and digit temperatures were documented at sites per exam protocol and test requirements. IMPRESSION: 1. Normal bilateral upper extremity resting wrist brachial indices. 2. Multiphasic waveforms throughout the bilateral upper extremity arterial systems. No evidence of hemodynamically significant stenoses or occlusions. 3. Palmar arches are intact bilaterally. COMPARISON: No prior study available for comparison. FINDINGS: Bilateral WBI normal with right at 1.07 and left at 1.10. Bilateral upper extremity palmar arches are complete. Bilateral upper extremity arteries are multiphasic with no songoraphic evidence of hemodynamically significant stenosis. Right Upper Extremity: Normal WBI on the right of 1.07. The digital pressures and modified Peter's test suggests the right palmar arch is complete with sufficient collateral flow. Left Upper Extremity: Normal WBI on the left of 1.10. The digital pressures and modified Peter's test suggests the left palmar arch is complete with sufficient collateral flow. MEASUREMENTS: + + + + RIGHT ? Velocity cm/s Phasicity ?? + + + + SCA PRX ? 82 ? multiphasic + + + + SCA DST ? 77 ? multiphasic + + + + AXILLARY ART ? 84 ? multiphasic + + + + BRACH PRX ? 97 ? multiphasic + + + + BRACH DST ? 91 ? multiphasic + + + + RAD ART PRX ? 69 ? multiphasic + + + + RAD ART MID ? 51 ? multiphasic + + + + RAD ART DST ? 63 ? multiphasic + + + + ULN ART PRX ? 60 ? multiphasic + + + + ULN ART DST ? 69 ? multiphasic + + + + + + + + LEFT ? Velocity cm/s Phasicity ?? + + + + SCA PRX ? 67 ? multiphasic + + + + SCA DST ? 77 ? multiphasic + + + + AXILLARY ART ? 95 ? multiphasic + + + + BRACH PRX ? 99 ? multiphasic + + + + BRACH DST ? 74 ? multiphasic + + + + RAD ART PRX ? 50 ? multiphasic + + + + RAD ART MID ? 51 ? multiphasic + + + + RAD ART DST ? 45 ? multiphasic + + + + ULN ART PRX ? 36 ? multiphasic + + + + ULN ART DST ? 59 ? multiphasic + + + + Criteria: PSV (cm/sec) Stenosis ?? Plaque imaged ?Vr ?? Normal ? <125 ? No ? Mild ?? 125-180 ?<50% ?Yes ? <2 Moderate ? >180 ?50-74% ? Yes ? >2 ?? Severe ? >400 ?75-99% ? Yes ? >4 Occlusion ?occlusion plaque/thrombus no detectable flow Radial Artery + + +------+ Radial Velocity Radial Diameter RIGHT ?(cm/s) ? (mm) ? + + +------+ ?69 ? 1.85 ? PROX + + +------+ ?51 ? 1.96 ? MID ?? + + +------+ ?63 ? 1.69 ? DISTAL + + +------+ + + +------+ Radial Velocity (cm/s) Radial Diameter (mm) LEFT + + +------+ ?50 ?1.90 ? PROX + + +------+ ?51 ?1.91 ? MID ?? + + +------+ ?45 ?1.46 ? DISTAL + + +------+ Pressures +-----+ +--------+ +-----+ ? RIGHT (mmHg) ? LEFT (mmHg) ? +-----+ +--------+ +-----+ Index ?131 ? BRACHIAL ?129 ? Index +-----+ +--------+ +-----+ 1.03 ?135 ? RADIAL ?144 ? 1.10 +-----+ +--------+ +-----+ 1.07 ?140 ? ULNAR ?137 ? 1.05 +-----+ +--------+ +-----+ Nader Segovia MD. [employer] Electronically signed on 08/15/2023 2:36:56 PM This study was performed and interpreted by a service accredited by the Intersocietal Accreditation Commission (ICA/Vascular), [email or web address] Report generated by [employer]. ??Final ?? Procedure Note Nader Segovia MD - 08/15/2023 VASCULAR ULTRASOUND REPORT ANGELA CUTLER : 1960 Study Date: 08/15/2023 9:59:00 AM Age: 62 years Tech: CAR Gender: F Referring MD: FLOWER BEEBE Site: [facility] V[facility] Center Study performed: Upper extremity duplex US, segmental pressures(WBI), palmar arch testing, (bilateral). Indication for study: for cardiac pre-op Study Quality: Good TECHNIQUE: Lower/upper extremity arteries were examined per exam protocol by duplexultrasound, color-flow and spectral Doppler. Peak systolic velocities(PSV), Doppler waveform quality, velocity ratios and vessel size in cm,were documented at protocol specific sites. Physiologic data includingsegmental pressures, ankle/brachial index (JADON), digit PPG recordings,laser Doppler flowmetry and digit temperatures were documented at sitesper exam protocol and test requirements. IMPRESSION: 1. Normal bilateral upper extremity resting wrist brachial indices. 2. Multiphasic waveforms throughout the bilateral upper extremityarterial systems. No evidence of hemodynamically significant stenoses orocclusions. 3. Palmar arches are intact bilaterally. COMPARISON: No prior study available for comparison. FINDINGS: Bilateral WBI normal with right at 1.07 and left at 1.10. Bilateral upperextremity palmar arches are complete. Bilateral upper extremity arteriesare multiphasic with no songoraphic evidence of hemodynamicallysignificant stenosis. Right Upper Extremity: Normal WBI on the right of 1.07. The digital pressures and modifiedAllen's test suggests the right palmar arch is complete with sufficientcollateral flow. Left Upper Extremity: Normal WBI on the left of 1.10. The digital pressures and modified Peter'stest suggests the left palmar arch is complete with sufficient collateralflow. MEASUREMENTS: + + + + RIGHT Velocity cm/s Phasicity + + + + SCA PRX 82 multiphasic + + + + SCA DST 77 multiphasic + + + + AXILLARY ART 84 multiphasic + + + + BRACH PRX 97 multiphasic + + + + BRACH DST 91 multiphasic + + + + RAD ART PRX 69 multiphasic + + + + RAD ART MID 51 multiphasic + + + + RAD ART DST 63 multiphasic + + + + ULN ART PRX 60 multiphasic + + + + ULN ART DST 69 multiphasic + + + + + + + + LEFT Velocity cm/s Phasicity + + + + SCA PRX 67 multiphasic + + + + SCA DST 77 multiphasic + + + + AXILLARY ART 95 multiphasic + + + + BRACH PRX 99 multiphasic + + + + BRACH DST 74 multiphasic + + + + RAD ART PRX 50 multiphasic + + + + RAD ART MID 51 multiphasic + + + + RAD ART DST 45 multiphasic + + + + ULN ART PRX 36 multiphasic + + + + ULN ART DST 59 multiphasic + + + + Criteria: PSV (cm/sec) Stenosis Plaque imaged Vr Normal <125 No Mild 125-180 <50% Yes <2 Moderate >180 50-74% Yes >2 Severe >400 75-99% Yes >4 Occlusion occlusion plaque/thrombus no detectable flow Radial Artery + + +------+ Radial Velocity Radial Diameter RIGHT (cm/s) (mm) + + +------+ 69 1.85 PROX + + +------+ 51 1.96 MID + + +------+ 63 1.69 DISTAL + + +------+ + + +------+ Radial Velocity (cm/s) Radial Diameter (mm) LEFT + + +------+ 50 1.90 PROX + + +------+ 51 1.91 MID + + +------+ 45 1.46 DISTAL + + +------+ Pressures +-----+ +--------+ +-----+ RIGHT (mmHg) LEFT (mmHg) +-----+ +--------+ +-----+ Index 131 BRACHIAL 129 Index +-----+ +--------+ +-----+ 1.03 135 RADIAL 144 1.10 +-----+ +--------+ +-----+ 1.07 140 ULNAR 137 1.05 +-----+ +--------+ +-----+ Nader Segovia MD. [employer] Electronically signed on 08/15/2023 2:36:56 PM This study was performed and interpreted by a service accredited by theIntersocietal Accreditation Commission (ICA/Vascular),[email or web address] Report generated by [employer]. Final Flower OSCAR US * US ARTERIAL SEG PRESSURES BILAT (08/15/2023 10:44 AM MACHINE CLOTHING WORKER) Anatomical Region Laterality Modality Ultrasound 08/15/2023 9:59 AM MACHINE CLOTHING WORKER Narrative 08/15/2023 2:36 PM MACHINE CLOTHING WORKER VASCULAR ULTRASOUND REPORT ANGELA CUTLER Accession#: ?? [id number] : ?1960 ??Study Date: ?? 08/15/2023 9:59:00 AM Age: ?62 years ?? Tech: ? CAR Gender: F ?Referring MD: FLOWER BEEBE Site: [facility] [place] Study performed: ?Upper extremity duplex US, segmental pressures (WBI), ?palmar arch testing, (bilateral). Indication for study: for cardiac pre-op Study Quality: ?Good TECHNIQUE: Lower/upper extremity arteries were examined per exam protocol by duplex ultrasound, color-flow and spectral Doppler. Peak systolic velocities (PSV), Doppler waveform quality, velocity ratios and vessel size in cm, were documented at protocol specific sites. Physiologic data including segmental pressures, ankle/brachial index (JADON), digit PPG recordings, laser Doppler flowmetry and digit temperatures were documented at sites per exam protocol and test requirements. IMPRESSION: 1. Normal bilateral upper extremity resting wrist brachial indices. 2. Multiphasic waveforms throughout the bilateral upper extremity arterial systems. No evidence of hemodynamically significant stenoses or occlusions. 3. Palmar arches are intact bilaterally. COMPARISON: No prior study available for comparison. FINDINGS: Bilateral WBI normal with right at 1.07 and left at 1.10. Bilateral upper extremity palmar arches are complete. Bilateral upper extremity arteries are multiphasic with no songoraphic evidence of hemodynamically significant stenosis. Right Upper Extremity: Normal WBI on the right of 1.07. The digital pressures and modified Peter's test suggests the right palmar arch is complete with sufficient collateral flow. Left Upper Extremity: Normal WBI on the left of 1.10. The digital pressures and modified Peter's test suggests the left palmar arch is complete with sufficient collateral flow. MEASUREMENTS: + + + + RIGHT ? Velocity cm/s Phasicity ?? + + + + SCA PRX ? 82 ? multiphasic + + + + SCA DST ? 77 ? multiphasic + + + + AXILLARY ART ? 84 ? multiphasic + + + + BRACH PRX ? 97 ? multiphasic + + + + BRACH DST ? 91 ? multiphasic + + + + RAD ART PRX ? 69 ? multiphasic + + + + RAD ART MID ? 51 ? multiphasic + + + + RAD ART DST ? 63 ? multiphasic + + + + ULN ART PRX ? 60 ? multiphasic + + + + ULN ART DST ? 69 ? multiphasic + + + + + + + + LEFT ? Velocity cm/s Phasicity ?? + + + + SCA PRX ? 67 ? multiphasic + + + + SCA DST ? 77 ? multiphasic + + + + AXILLARY ART ? 95 ? multiphasic + + + + BRACH PRX ? 99 ? multiphasic + + + + BRACH DST ? 74 ? multiphasic + + + + RAD ART PRX ? 50 ? multiphasic + + + + RAD ART MID ? 51 ? multiphasic + + + + RAD ART DST ? 45 ? multiphasic + + + + ULN ART PRX ? 36 ? multiphasic + + + + ULN ART DST ? 59 ? multiphasic + + + + Criteria: PSV (cm/sec) Stenosis ?? Plaque imaged ?Vr ?? Normal ? <125 ? No ? Mild ?? 125-180 ?<50% ?Yes ? <2 Moderate ? >180 ?50-74% ? Yes ? >2 ?? Severe ? >400 ?75-99% ? Yes ? >4 Occlusion ?occlusion plaque/thrombus no detectable flow Radial Artery + + +------+ Radial Velocity Radial Diameter RIGHT ?(cm/s) ? (mm) ? + + +------+ ?69 ? 1.85 ? PROX + + +------+ ?51 ? 1.96 ? MID ?? + + +------+ ?63 ? 1.69 ? DISTAL + + +------+ + + +------+ Radial Velocity (cm/s) Radial Diameter (mm) LEFT + + +------+ ?50 ?1.90 ? PROX + + +------+ ?51 ?1.91 ? MID ?? + + +------+ ?45 ?1.46 ? DISTAL + + +------+ Pressures +-----+ +--------+ +-----+ ? RIGHT (mmHg) ? LEFT (mmHg) ? +-----+ +--------+ +-----+ Index ?131 ? BRACHIAL ?129 ? Index +-----+ +--------+ +-----+ 1.03 ?135 ? RADIAL ?144 ? 1.10 +-----+ +--------+ +-----+ 1.07 ?140 ? ULNAR ?137 ? 1.05 +-----+ +--------+ +-----+ Nader Segovia MD. [employer] Electronically signed on 08/15/2023 2:36:56 PM This study was performed and interpreted by a service accredited by the Intersocietal Accreditation Commission (ICA/Vascular), [email or web address] Report generated by [employer]. ??Final ?? Procedure Note Nader Segovia MD - 08/15/2023 VASCULAR ULTRASOUND REPORT ANGELA CUTLER : 1960 Study Date: 08/15/2023 9:59:00 AM Age: 62 years Tech: CAR Gender: F Referring MD: FLOWER BEEBE Site: [facility] Study performed: Upper extremity duplex US, segmental pressures(WBI), palmar arch testing, (bilateral). Indication for study: for cardiac pre-op Study Quality: Good TECHNIQUE: Lower/upper extremity arteries were examined per exam protocol by duplexultrasound, color-flow and spectral Doppler. Peak systolic velocities(PSV), Doppler waveform quality, velocity ratios and vessel size in cm,were documented at protocol specific sites. Physiologic data includingsegmental pressures, ankle/brachial index (JADON), digit PPG recordings,laser Doppler flowmetry and digit temperatures were documented at sitesper exam protocol and test requirements. IMPRESSION: 1. Normal bilateral upper extremity resting wrist brachial indices. 2. Multiphasic waveforms throughout the bilateral upper extremityarterial systems. No evidence of hemodynamically significant stenoses orocclusions. 3. Palmar arches are intact bilaterally. COMPARISON: No prior study available for comparison. FINDINGS: Bilateral WBI normal with right at 1.07 and left at 1.10. Bilateral upperextremity palmar arches are complete. Bilateral upper extremity arteriesare multiphasic with no songoraphic evidence of hemodynamicallysignificant stenosis. Right Upper Extremity: Normal WBI on the right of 1.07. The digital pressures and modifiedAllen's test suggests the right palmar arch is complete with sufficientcollateral flow. Left Upper Extremity: Normal WBI on the left of 1.10. The digital pressures and modified Peter'stest suggests the left palmar arch is complete with sufficient collateralflow. MEASUREMENTS: + + + + RIGHT Velocity cm/s Phasicity + + + + SCA PRX 82 multiphasic + + + + SCA DST 77 multiphasic + + + + AXILLARY ART 84 multiphasic + + + + BRACH PRX 97 multiphasic + + + + BRACH DST 91 multiphasic + + + + RAD ART PRX 69 multiphasic + + + + RAD ART MID 51 multiphasic + + + + RAD ART DST 63 multiphasic + + + + ULN ART PRX 60 multiphasic + + + + ULN ART DST 69 multiphasic + + + + + + + + LEFT Velocity cm/s Phasicity + + + + SCA PRX 67 multiphasic + + + + SCA DST 77 multiphasic + + + + AXILLARY ART 95 multiphasic + + + + BRACH PRX 99 multiphasic + + + + BRACH DST 74 multiphasic + + + + RAD ART PRX 50 multiphasic + + + + RAD ART MID 51 multiphasic + + + + RAD ART DST 45 multiphasic + + + + ULN ART PRX 36 multiphasic + + + + ULN ART DST 59 multiphasic + + + + Criteria: PSV (cm/sec) Stenosis Plaque imaged Vr Normal <125 No Mild 125-180 <50% Yes <2 Moderate >180 50-74% Yes >2 Severe >400 75-99% Yes >4 Occlusion occlusion plaque/thrombus no detectable flow Radial Artery + + +------+ Radial Velocity Radial Diameter RIGHT (cm/s) (mm) + + +------+ 69 1.85 PROX + + +------+ 51 1.96 MID + + +------+ 63 1.69 DISTAL + + +------+ + + +------+ Radial Velocity (cm/s) Radial Diameter (mm) LEFT + + +------+ 50 1.90 PROX + + +------+ 51 1.91 MID + + +------+ 45 1.46 DISTAL + + +------+ Pressures +-----+ +--------+ +-----+ RIGHT (mmHg) LEFT (mmHg) +-----+ +--------+ +-----+ Index 131 BRACHIAL 129 Index +-----+ +--------+ +-----+ 1.03 135 RADIAL 144 1.10 +-----+ +--------+ +-----+ 1.07 140 ULNAR 137 1.05 +-----+ +--------+ +-----+ Nader Segovia MD. [employer] Electronically signed on 08/15/2023 2:36:56 PM This study was performed and interpreted by a service accredited by theIntersocietal Accreditation Commission (ICA/Vascular),[email or web address] Report generated by [employer]. Final Flower OSCAR US * (ABNORMAL) ACTIVATED CLOTTING TIME AUI683 ACT (07/27/2023 8:51 AM MACHINE CLOTHING WORKER) Only the most recent of2 resultswithin the time period is included. [facility] ACTIVATED CLOTTING TIME, POCT 213(H) 74 - 125 sec 07/28/2023 10:57 PM MACHINE CLOTHING WORKER [facility] Blood BLOOD SPECIMEN / Unknown 07/27/2023 8:51 AM MACHINE CLOTHING WORKER 07/28/2023 10:57 PM MACHINE CLOTHING WORKER Raymundo Figueroa MD HEMATOLOGY [facility] [address] [place] [address], [place] * CVL CORONARY ANGIOGRAM POSS PCI (07/27/2023 8:15 AM MACHINE CLOTHING WORKER) Anatomical Region Laterality Modality X-Ray Angiograph y, X-Ray Angiography 07/27/2023 8:15 AM MACHINE CLOTHING WORKER Narrative Transcriptions Raymundo Figueroa MD - 07/27/2023 9:41 AM CST [facility] Cardiac Catheterization Report Name: ANGELA CUTLER Event Date: 07/27/2023 08:15 Jeffian ID #: [id number] LUCAS #: [id number] Diagnostic Physician: RAYMUNDO FIGUEROA [facility] Interventional Physician: RAYMUNDO FIGUEROA [facility] Referring Physician: Date: 1960 Gender: Female Age: 62 Summary/Conclusions PRESENTATION / INDICATIONS * Angina on effort Coronary artery disease VASCULAR ACCESS * Using ultrasound guidance and a percutaneous technique, the right commonfemoral artery was accessed. Ultrasound was used to confirm vesselpatency, localizing needle into the lumen of the vessel. An image wassaved for the medical record. SPECIAL PROCEDURES * Right femoral arteriotomy was successfully closed utilizing a closuredevice DIAGNOSTIC SUMMARY Right external iliac and common femoral arteries arepatent. ? 30% diffuse stenosis in the LMCA. Pressure dampens substantially onengagement with 6F JL3.5 diagnostic and 6F XB 3 guide catheters. ? 50% and 70% sequential stenoses in the Proximal LAD. IFR 0.47. The IFRnormalizes on pullback into guide. (LM also significant) ? 90% stenosis in the 1st LAD Septal Coal Trammer. Small vessel. Med rx. ? 50% stenosis in the Proximal Circumflex ? The RCA is free of significant disease, has mild luminal irregularities,and is dominant. LEFT VENTRICULAR FUNCTION ? LV Pressure = 115/11. Best for CABG Consent & [place] Protocol The risks, benefits, and alternatives of the procedure were discussed withthe patient and written informed consent was obtained. [facility] protocol was followed. TIME OUT conducted just prior tostarting procedure confirmed patient identity, site/side, procedure,patient position, and availability of correct equipment and implants (ifapplicable). Staff Name Title RAYMUNDO FIGUEROA Diagnostic Deck Supervisor Mari Kenyon RN Nurse Ritesh Dennis CVT Scrub Vitor Cruz RT(R) Scrub Hilton Taylor CVT Monitor Remington Lowry RT(R) Monitor Hilton Taylor CVT Porter Head RAYMUNDO FIGUEROA Securities Counselor Viji Bennett Fellow Procedures ? Ultrasound Guided Vascular Access ? Coronary Angiogram ? Femoral Angio for Possible Closure Device ? Coronary Fractional Flow Measurement ? Femoral Closure Device ? Left Heart Cath No Ventriculogram Diagnostic Findings * Left Main Coronary Artery ? 30% stenosis in the LMCA. * Left Anterior Descending ? 70% stenosis in the Proximal LAD. ? 50% stenosis in the Proximal LAD. ? 90% stenosis in the 1st LAD Septal Coal Trammer. * Circumflex ? 50% stenosis in the Proximal Circumflex. * Right Coronary Artery ? The RCA is free of significant disease, has mild luminalirregularities, and is dominant. Lesion Information Lesion # Vessel Segment Lesion Length Lesion Details LMCA Proximal LAD 1st LAD Septal Coal Trammer 1 Proximal LAD Proximal Circumflex Hemodynamics State: Baseline Pressures (mmHg) Site Systolic Diastolic End Diastolic A Wave V Wave Mean AO 121 66 88 LV 115 1 11 LV 120 17 AO 115 58 86 Interventional Devices Lesion # Vessel Segment Type Name Max Pressure 1 Proximal LAD Pressure Wire Wire Pressure Guide OMNIwire [id number] Procedure Details Estimated Blood Loss: < 30 ml Specimen Collected: None Level of Sedation Achieved: Moderate Procedure Start: 08:15 Fluoroscopy Time: 8.1 min Cumulative Air Kerma: 503 mGy DAP: 2763 uGy/M2 Contrast: Omnipaque (low-osmolar), 70 ml Physiologic Data Actual VO2: 272.99 Weight: 64.4 kg BSA: 1.65 m2 Vascular Access Time Access Sheath Size 08:17 Right Femoral Artery, sheath inserted Complications ? No Complications Medications Ordered and Administered Start Time Stop Time Medication Dose Units Route Ordered By Given By 08:16 Fentanyl 75 mcg IV Raymundo Figueroa Leesa RN 08:16 Versed 1.5 mg IV Raymundo Figueroa Leesa RN 08:16 1% Lidocaine 10 ml Subcut Raymundo Figueroa Muhammad Saad 08:34 Heparin 3000 units IV Raymundo Figueroa Leesa RN 08:43 Fentanyl 25 mcg IV Raymundo Figueroa Leesa RN 08:43 Versed 0.5 mg IV Raymundo Figueroa Leesa RN 08:46 Heparin 2000 units IV Raymundo Figueroa Leesa RN 08:57 Fentanyl 25 mcg IV Raymundo Figueroa Leesa RN 08:57 Versed 0.5 mg IV Raymundo Figueroa Leesa RN 09:03 Lidocaine 1% w/Epi 1:100,000 4 ml Subcut [place], Raymundo Bennett,Viji Gloria I personally monitored the patient?s conscious sedation during theprocedure. Conscious sedation starts with the first sedation medication dose ofFentanyl or Versed and ends when the procedure is completed, the patientis stable for recovery status, and the physician or other qualified healthcare professional providing the sedation ends personal oglxewjejiryuw-rr-[id number] time with the patient. The medications listed above were verbally ordered by me and read back tome as documented above. Refer to the procedure log report for additional case details. electronically signed on 07/27/2023 9:41:12 AM with status of Final Raymundo Figueroa MD [facility] [address] [place] [id number]) [phone](f) Provider Referring CV IMAGING * HEMOGLOBIN A1C SCREENING (07/27/2023 6:01 AM MACHINE CLOTHING WORKER) HEMOGLOBIN A1C SCREENING 5.3 <=6.4 % 07/27/2023 10:20 AM MACHINE CLOTHING WORKER [facility] [employer] [facility] Blood BLOOD SPECIMEN / Unknown Venipuncture / Unknown 07/27/2023 6:01 AM MACHINE CLOTHING WORKER 07/27/2023 6:06 AM MACHINE CLOTHING WORKER Narrative [facility] - 07/27/2023 10:20 AM MACHINE CLOTHING WORKER ? (<5.7%) ?Normal ? (5.7% to 6.4%) ? Indicates prediabetes ? (>=6.5%) ? Confirms diabetes Falsely low levels may be seen with: Recent Transfusion, Recent Significant Blood Loss, Hemolytic Diseases, or Falsely elevated levels may be seen with: Untreated Anemias, Splenectomy Viji Bennett MD CHEMISTRY [facility] [address] [place] [address], * CT CARDIAC CORONARY ARTERIES DUAL READ (06/30/2023 2:47 PM MACHINE CLOTHING WORKER) Anatomical Region Laterality Modality HEART Computed Tomogra phy 06/30/2023 2:51 PM MACHINE CLOTHING WORKER Addenda Addendum by Krystian Harper MD on 07/04/2023 12:29 PM MACHINE CLOTHING WORKER ?[facility] ? Cardiac CT Report ??MRN: ? [id number] ?Name: ? ANGELA CUTLER L ?: ?1960-Sep-29 ?Scan Date: ?Accession Number: ? [id number] ? Electronically signed by Krystian Harper 17:01:22 VITALS HEIGHT: 62 in ?(157 cm) WEIGHT: 140 lbs ?(64 kgs) BSA: 1.64 m^2 BMI: 26 kg/m^2 BP: 140 / 84 mmHg HEART RHYTHM: Normal Sinus Rhythm FINAL IMPRESSION 1) Nonobstructive coronary atherosclerosis. - Ca score 386 - moderate LAD stenosis unable to be assessed by FFR-CT due to technical issues at Heart Flow. If highly symptomatic or high concern, consider angiogram +/- iFR - no definite severe stenosis - aggressive risk factor modification recommended. 2) Normal appearing pericardium. 3) Normal caliber ascending aorta without acute pathology. 4) Please see separate radiology report. RECOMMENDATIONS: - Patient exhibits elevated coronary atherosclerosis burden and will likely benefit from aggressive risk factor modification. - Cardiovascular risk factor modification measures including preventive medical therapy for coronary atherosclerosis (statin +/- other treatment for a low LDL target and aspirin in the absence of contraindications) are advised. STUDY QUALITY: Study quality is good. CAD-RADS: CAD-RADS Classification 3 (50-69% stenosis). CALCIUM SCORING: Total coronary artery calcium score 386. GAVIN percentile based on age, gender, and race is 97. DOMINANCE: Right dominant coronary artery system. LM: The LM has calcified atherosclerosis. ??There is a 25-49% LM stenosis. LAD: The proximal LAD has partially calcified atherosclerosis. ??There is a 25-49% proximal LAD stenosis. ??The mid LAD has partially calcified atherosclerosis. ??There is a 50-69% mid LAD stenosis. ??The distal LAD has non-calcified atherosclerosis. There is a <25% distal LAD stenosis. D1: The first diagonal is normal. LCX: The proximal LCx has partially calcified atherosclerosis. ??There is a 25-49% proximal LCx stenosis. ??The mid LCx has partially calcified atherosclerosis. ??There is a <25% mid LCx stenosis. ??The distal LCx has partially calcified atherosclerosis. ??There is a <25% distal LCx stenosis. OM1: The first obtuse marginal is normal. OM2: The second obtuse marginal is normal. RCA: The proximal RCA has non-calcified atherosclerosis. ??There is a <25% proximal RCA stenosis. ??The mid RCA has non-calcified atherosclerosis. ??There is a 25-49% mid RCA stenosis. ? There is no distal RCA stenosis. RIGHT PDA: The right PDA is normal. RIGHT PLB: The right posterolateral branch is normal. OTHER FINDINGS: Asc Ao 28 x 28 mm Normal JAVIER without clot. CALCIUM SCORING TABLE . . ? Number of Lesions Pattern of Calcium Volume Total Score +-------+ + +--------+ + LM ? 0 ? 154 LAD ? 0 ? 125 LCx ? 0 ?96 RCA ? 0 ?11 Ramus ? 0 ? 0 '-------+ + +--------+ ' SCAN INFO TEST TYPE: ??Calcium score, Coronary CT Angiography SCANNER MANAGER REVIEW: ??SIEMENS SCANNER MODEL: ??[employer] DOSE REDUCTION ALGORITHM: ??Helical with dose modulation PHASE UNITS: ??ms START PHASE: ??280 ms END PHASE: ??350 ms EKG GATED: ??Yes PRE-CONTRAST: ??Yes POST-CONTRAST: ??No 3D RECONSTRUCTION: ??Yes PACEMAKER ?DEVICE: ??No GENERAL ?CONTRAST AGENT ?CONTRAST AGENT USED?: ??Yes ?TYPE: ??Omnipaque 350 ?DOSE: ??100 ml ?RATE: ??6.5 ml/s ?ROUTE: ??IV ?ARM: ??Right ?BOLUS TECHNIQUE: ??Biphasic ?SERUM CREATININE: ??0.7 mg/dL ?GFR: ??90.42 ml/min/1.73m^2 ?CREATININE DATE: ?CT CONTRAST REACTION: ??None ?MEDICATION ADMINISTERED DURING SCAN ?TYPE: ??Nitroglycerin, sublingual, B-Blockers ?NITROGLYCERIN, TOTAL DOSE: ??0.8 mg ?B-DANO TYPE: ??Oral, IV ?B-DANO NAME, ORAL: ??Metoprolol tartrate ?B-DANO NAME, IV: ??Metoprolol tartrate ?B-BLOCKERS, ORAL DOSE: ??50 mg ?SETUP ?PATIENT TYPE: ??Outpatient ?REASON(S) FOR SCAN: ??Chest pain ?REFERRING PHYSICIAN: ??DARLEEN JOHNSTON ?ATTENDING PHYSICIAN: ??DARLEEN JOHNSTON ?TECHNOLOGIST: ??Penny Taylor Patient Account ?[id number] ICD10 Codes ?R07.9 Report generated by [employer], a product of [employer] 07/01/2023 7:23 AM MACHINE CLOTHING WORKER ??No acute or suspicious extracardiac imaging abnormality. Please note that all CT scans at this facility use dose modulation, iterative reconstruction and/or weight-based dosing when appropriate to reduce radiation dose to as low as reasonably achievable. ?? Herman Peñaloza M.D. Pediatric/Diagnostic Radiologist [employer] [email or web address] [facility]/rcd ? Narrative 07/01/2023 7:23 AM MACHINE CLOTHING WORKER ?[facility] ? Cardiac CT Report ??MRN: ? [id number] ?Name: ? ANGELA CUTLER ?: ?1961-Mar-29 ?Scan Date: ?Accession Number: ? [id number] ? Electronically signed by Krystian Harper 16:56:31 VITALS HEIGHT: 62 in ?(157 cm) WEIGHT: 140 lbs ?(64 kgs) BSA: 1.64 m^2 BMI: 26 kg/m^2 BP: 140 / 84 mmHg HEART RHYTHM: Normal Sinus Rhythm FINAL IMPRESSION 1) Nonobstructive coronary atherosclerosis. - Ca score 386 - moderate LAD stenosis will be assessed by FFR-CT - no definite severe stenosis - aggressive risk factor modification recommended. 2) Normal appearing pericardium. 3) Normal caliber ascending aorta without acute pathology. 4) Please see separate radiology report. RECOMMENDATIONS: - Patient exhibits elevated coronary atherosclerosis burden and will likely benefit from aggressive risk factor modification. - Cardiovascular risk factor modification measures including preventive medical therapy for coronary atherosclerosis (statin +/- other treatment for a low LDL target and aspirin in the absence of contraindications) are advised. STUDY QUALITY: Study quality is good. CAD-RADS: CAD-RADS Classification 3 (50-69% stenosis). CALCIUM SCORING: Total coronary artery calcium score 386. SANDGAP percentile based on age, gender, and race is 97. DOMINANCE: Right dominant coronary artery system. LM: The LM has calcified atherosclerosis. ??There is a 25-49% LM stenosis. LAD: The proximal LAD has partially calcified atherosclerosis. ??There is a 25-49% proximal LAD stenosis. ??The mid LAD has partially calcified atherosclerosis. ??There is a 50-69% mid LAD stenosis. ??The distal LAD has non-calcified atherosclerosis. There is a <25% distal LAD stenosis. D1: The first diagonal is normal. LCX: The proximal LCx has partially calcified atherosclerosis. ??There is a 25-49% proximal LCx stenosis. ??The mid LCx has partially calcified atherosclerosis. ??There is a <25% mid LCx stenosis. ??The distal LCx has partially calcified atherosclerosis. ??There is a <25% distal LCx stenosis. OM1: The first obtuse marginal is normal. OM2: The second obtuse marginal is normal. RCA: The proximal RCA has non-calcified atherosclerosis. ??There is a <25% proximal RCA stenosis. ??The mid RCA has non-calcified atherosclerosis. ??There is a 25-49% mid RCA stenosis. ? There is no distal RCA stenosis. RIGHT PDA: The right PDA is normal. RIGHT PLB: The right posterolateral branch is normal. OTHER FINDINGS: Asc Ao 28 x 28 mm Normal JAVIER without clot. CALCIUM SCORING TABLE . . ? Number of Lesions Pattern of Calcium Volume Total Score +-------+ + +--------+ + LM ? 0 ? 154 LAD ? 0 ? 125 LCx ? 0 ?96 RCA ? 0 ?11 Ramus ? 0 ? 0 '-------+ + +--------+ ' SCAN INFO TEST TYPE: ??Calcium score, Coronary CT Angiography SCANNER MANAGER REVIEW: ??SIEMENS SCANNER MODEL: ??[employer] DOSE REDUCTION ALGORITHM: ??Helical with dose modulation PHASE UNITS: ??ms START PHASE: ??280 ms END PHASE: ??350 ms EKG GATED: ??Yes PRE-CONTRAST: ??Yes POST-CONTRAST: ??No 3D RECONSTRUCTION: ??Yes PACEMAKER ?DEVICE: ??No GENERAL ?CONTRAST AGENT ?CONTRAST AGENT USED?: ??Yes ?TYPE: ??Omnipaque 350 ?DOSE: ??100 ml ?RATE: ??6.5 ml/s ?ROUTE: ??IV ?ARM: ??Right ?BOLUS TECHNIQUE: ??Biphasic ?SERUM CREATININE: ??0.7 mg/dL ?GFR: ??90.42 ml/min/1.73m^2 ?CREATININE DATE: ?CT CONTRAST REACTION: ??None ?MEDICATION ADMINISTERED DURING SCAN ?TYPE: ??Nitroglycerin, sublingual, B-Blockers ?NITROGLYCERIN, TOTAL DOSE: ??0.8 mg ?B-DANO TYPE: ??Oral, IV ?B-DANO NAME, ORAL: ??Metoprolol tartrate ?B-DANO NAME, IV: ??Metoprolol tartrate ?B-BLOCKERS, ORAL DOSE: ??50 mg ?SETUP ?PATIENT TYPE: ??Outpatient ?REASON(S) FOR SCAN: ??Chest pain ?REFERRING PHYSICIAN: ??DARLEEN JOHNSTON ?ATTENDING PHYSICIAN: ??DARLEEN JOHNSTON ?TECHNOLOGIST: ??Penny Taylor Patient Account ?[id number] ICD10 Codes ?R07.9 Report generated by [employer], a product of [employer] For Patients: As a result of the 21st Century Cures Act, medical imaging exams and procedure reports are released immediately into your electronic medical record. ??You may view this report before your referring provider. ?? If you have questions, please contact your health care provider. OVER-READ ??OVER-READ ??OVER-READ OVER-READ: DETAILED RADIOLOGY EXTRACARDIAC OVER-READ OF CARDIAC CT, 06/30/2023 TECHNIQUE: ??Please see cardiology report for technical information. ??84 mL Omnipaque-350 intravenous contrast. This exam is being performed in conjunction with the services provided by the [facility] ([facility]). CLINICAL HISTORY: ??Cardiac CTA over-read. ? FINDINGS: Lungs and Pleura: ??The lungs are clear with no pleural fluid. ?? Pulmonary Arteries: ??No pulmonary arterial filling defects. ?? Aorta: ??No signs for dissection. Mediastinum: ??No adenopathy. Miscellaneous: ??No additional suspicious abnormalities. Darleen Johnston MD CT * CREATININE,ISTAT (06/30/2023 2:28 PM MACHINE CLOTHING WORKER) [facility] CREATININE, POCT 0.70 0.57 - 1.11 mg/dL 06/30/2023 2:33 PM MACHINE CLOTHING WORKER [facility] eGFR >90 >90 mL/min/1.7 3m2 06/30/2023 2:33 PM MACHINE CLOTHING WORKER [facility] Comment:As of 2021, eG FR is calculated by the CKD-EPI creatinine equation without race adjustment. eGFR can be influenced by muscle mass, exercise, and diet. The reported eGFR is an estimation only and is only applicable if the renal function is stable. Blood BLOOD SPECIMEN / Unknown 06/30/2023 2:28 PM MACHINE CLOTHING WORKER 06/30/2023 2:32 PM MACHINE CLOTHING WORKER Darleen Johnston MD CHEMI[facility] [address] [place] [address], from Last 3 Months Advance Directives Latest Code Status on File Code Status Date Activated Date Inactivated Comments Full Code 08/21/2023 11:01 AM 08/27/2023 5:29 PM Question Answer Comments Code Status Discussion: Reviewed Preferences Code Status History Code Status Date Activated Date Inactivated Comments Full Code 08/18/2023 6:11 AM 08/21/2023 11:01 AM Question Answer Comments Code Status Discussion: Unable to Assess Preferences, Provider to review later Full Code 07/27/2023 7:30 AM 07/27/2023 2:56 PM Question Answer Comments Code Status Discussion: Reviewed Preferences Care Teams Adult Live In Caregiver Relationship Specialty Start Date End Date Poppy Beasley MD [address] [place] [address] PCP - General Emergency Medicine 06/23/23
--- OUTSIDE RECORDS SUMMARY | 2023-09-01 12:08 | XMS_ITS | Clinical Summary ---
Author Name Unknown Organization [facility] Address [address] [place] [address] Care Team Providers Care Book Publisher Name Role Phone Unavailable Primary Care Provider Unavailabl e Source Comments You are receiving this document as you are listed as the primary care provider,follow-up provider, or the patient has been referred to you for consultation.This is in compliance with the Medicare andMedicaid EHR Incentive Program,which states Providers who transition their patient to another setting of careor provider of care or refers their patient to another provider of care shouldprovide summary care record for each transition of care or referral. [facility] Family History Medical History Relation Name Comments Cancer, Breast Negative Family History Cancer, Ovary Negative Family History Social History Tobacco Use Types Packs/Day Years Used Date Smoking Tobacco: Never Assessed Sex and Gender Information Value Date Recorded Sex Assigned at Not on file Gender Identity Not on file Sexual Orientation Not on file Plan of Treatment Health Maintenance Due Date Last Done Comments Cervical Cancer Screening Due 1960 Colon Cancer Screening Plan Due 1961 Hep C Screening (Preventive Services) 1961 COVID-19 Vaccine (#1) 04/15/1962 HIV Screening (Preventive Services) 1977 Adult Preventive Visit 10/14/1979 Cholesterol 2006 Zoster/Shingles (1 of 2) 10/14/2011 DTaP/Tdap/Td (2 - Tdap) 11/13/2020 11/13/2010 Influenza (#1) 2023 05/25/2020, 04/17/2020 Mammogram 06/16/2023 06/16/2022, 06/17, 04/10/2019, Additional history exists HepA Aged Out No longer eligi ble based on patient's age to complete this topic HepB Aged Out No longer eligi ble based on patient's age to complete this topic Hib Aged Out No longer eligi ble based on patient's age to complete this topic IPV (Polio) Aged Out No longer eligi ble based on patient's age to complete this topic MCV4 Aged Out No longer eligi ble based on patient's age to complete this topic Pneumococcal Aged Out No longer eligi ble based on patient's age to complete this topic Procedures Procedure Name Priority Date/Time Associated Diagnosis Comments MM MAMMOGRAM SCREENING BILAT W 3D JJ W CAD Routine 06/16/2022 10:01 AM BOTTOM SPRAYER Visit for screening mammogram from Last 3 Months or Most Recently Relevant to Health Maintenance Results * MM Mammogram Screening Bilat W 3D Jj W CAD (06/16/2022 10:01 AM BOTTOM SPRAYER) Anatomical Region Laterality Modality Breast Bilateral Mammography Impressions 06/17/2022 7:55 AM BOTTOM SPRAYER : ACR BI-RADS Category 1: Negative RECOMMENDATION: Follow Up Imaging in 12 months - Bilateral The results and recommendations of this examination will be communicated to the patient. Narrative 06/17/2022 7:55 AM BOTTOM SPRAYER MM MAMMOGRAM SCREENING BILAT W 3D JJ W CAD performed on 06/16/22 Compared to: 07/02/2020 MM Mammogram Screening Bilat W 3D Jj W CAD, 04/10/2019 MM Mammogram Screening Bilat W 3D Jj W CAD, and 04/24/2018 MM Mammogram Screening Bilat W 3D Jj W CAD ?? FINDINGS: Bilateral screening mammogram was performed with the assistance of Computer-Aided Detection and breast tomosynthesis. The breasts have scattered areas of fibroglandular density. There is no radiographic evidence of malignancy. ?? Poppy Beasley MD [facility] from Last 3 Months or Most Recently Relevant to Health Maintenance
== END 2023-09-01 11:48 | disposition home or self-care (01) ==
LOC: LKVREF 11:48
PROVIDERS: PCP Emergency Medicine; Visit Provider Emergency Medicine
DX: R06.01 Orthopnea (principal)
CPT/HCPCS: 83880

== ENCOUNTER 2023-09-29 09:30 | Outpatient (CLI) | payer OTHER, SELFPAY | END 2023-09-29 09:31 | disposition home or self-care (01) | LOC: NFLDREF 10-05 12:22 | PROVIDERS: PCP Emergency Medicine; Referring Provider Emergency Medicine; Visit Provider Emergency Medicine | DX: E78.5 Hyperlipidemia, unspecified (principal) | CPT/HCPCS: 80061 ==

== ENCOUNTER 2023-12-27 12:59 | Outpatient (CLI) | payer OTHER, SELFPAY ==
--- OUTSIDE RECORDS SUMMARY | 2023-12-31 17:09 | XMS_ITS | Clinical Summary ---
Author Organization [facility] Address [address] [place] [address] Care Team Providers Care Funds Transfer Clerk Name Role Phone Poppy Beasley MD Primary Care Provider +1- [phone] Encounters Date Type Department Care Team Description 11/08/2023 9:52 AM CDT - 11/08/2023 11:59 PM CDT Hospital Encounter [facility] Cardiac and Pulmonary Rehabilitation [address] [phone] Binh Trent MD Discharge Disposition: Home or Self Care 11/08/2023 Travel 11/04/2023 8:55 AM CDT - 11/04/2023 11:59 PM CDT Hospital Encounter [facility] Cardiac and Pulmonary Rehabilitation [address] [place] [phone] Binh Trent MD 2, Rh Cardiac Re[facility] Discharge Disposition: Home or Self Care 11/04/2023 Travel 11/02/2023 8:51 AM CDT - 11/02/2023 11:59 PM CDT Hospital Encounter [facility] Cardiac and Pulmonary Rehabilitation [address] [place] [phone] Binh Trent MD 2, Rh Cardiac Rehab Discharge Disposition: Home or Self Care 11/02/2023 Travel 10/31/2023 8:54 AM CDT - 10/31/2023 11:59 PM CDT Hospital Encounter [facility] Cardiac and Pulmonary Rehabilitation [address] [place] [phone] Binh Trent MD 2, Rh Cardiac Rehab Discharge Disposition: Home or Self Care 10/31/2023 Travel 10/28/2023 8:51 AM CDT - 10/28/2023 11:59 PM CDT Hospital Encounter [facility] Cardiac and Pulmonary Rehabilitation [address] [address] Binh Trent MD 2, Rh Cardiac Rehab Discharge Disposition: Home or Self Care 10/28/2023 Travel 10/26/2023 8:53 AM CDT - 10/26/2023 11:59 PM CDT Hospital Encounter [facility] Cardiac and Pulmonary Rehabilitation [address] [address] Binh Trent MD 2, Rh Cardiac Rehab Discharge Disposition: Home or Self Care 10/26/2023 Travel 10/24/2023 8:53 AM CDT - 10/24/2023 11:59 PM CDT Hospital Encounter [facility] Cardiac and Pulmonary Rehabilitation [address] [address] Binh Trent MD 2, Rh Cardiac Rehab Discharge Disposition: Home or Self Care 10/24/2023 Travel 10/21/2023 8:52 AM CDT - 10/21/2023 11:59 PM CDT Hospital Encounter [facility] Cardiac and Pulmonary Rehabilitation [address] [address] Binh Trent MD 2, Rh Cardiac Rehab Discharge Disposition: Home or Self Care 10/21/2023 Travel 10/19/2023 8:53 AM CDT - 10/19/2023 11:59 PM CDT Hospital Encounter [facility] Cardiac and Pulmonary Rehabilitation [address] [address] Binh Trent MD 2, Rh Cardiac Rehab Discharge Disposition: Home or Self Care 10/19/2023 Travel 10/17/2023 8:52 AM CDT - 10/17/2023 11:59 PM CDT Hospital Encounter [facility] Cardiac and Pulmonary Rehabilitation [address] [place] [address] Binh Trent MD 2, Rh Cardiac Rehab Discharge Disposition: Home or Self Care 10/17/2023 Travel 10/14/2023 8:52 AM CDT - 10/14/2023 11:59 PM CDT Hospital Encounter [facility] Cardiac and Pulmonary Rehabilitation [address] [place] [phone] Binh Trent MD 2, Rh Cardiac Rehab Discharge Disposition: Home or Self Care 10/14/2023 Travel 10/12/2023 8:51 AM CDT - 10/12/2023 11:59 PM CDT Hospital Encounter [facility] Cardiac and Pulmonary Rehabilitation [address] [phone] Binh Trent MD 2, Rh Cardiac Rehab Discharge Disposition: Home or Self Care 10/12/2023 Travel 10/10/2023 8:50 AM CDT - 10/10/2023 11:59 PM CDT Hospital Encounter [facility] Cardiac and Pulmonary Rehabilitation [address] [place] [address] Binh Trent MD 2, Rh Cardiac Rehab Discharge Disposition: Home or Self Care 10/10/2023 Travel 10/07/2023 8:51 AM CDT - 10/07/2023 11:59 PM CDT Hospital Encounter [facility] Cardiac and Pulmonary Rehabilitation [address] [address] Binh Trent MD 2, Rh Cardiac Rehab Discharge Disposition: Home or Self Care 10/07/2023 Travel 10/05/2023 8:50 AM CDT - 10/05/2023 11:59 PM CDT Hospital Encounter [facility] Cardiac and Pulmonary Rehabilitation [address] [phone] Binh Trent MD 2, Rh Cardiac Rehab Discharge Disposition: Home or Self Care 10/05/2023 Travel 10/03/2023 8:53 AM CDT - 10/03/2023 11:59 PM CDT Hospital Encounter [facility] Cardiac and Pulmonary Rehabilitation [place] [address] [place] [address] Drive [address] [place] [address] Binh Trent MD 2, Rh Cardiac Rehab Discharge Disposition: Home or Self Care 10/03/2023 Travel 09/30/2023 8:51 AM CDT - 09/30/2023 11:59 PM CDT Hospital Encounter [facility] Cardiac [facility] Pulmonary [facility] [id number] [place] [address] [address] [place] [address] Binh Trent MD 2, Rh Cardiac Rehab Discharge Disposition: Home or Self Care 09/30/2023 Travel from Last 3 Months Social History Tobacco Use Types Packs/Day Years Used Date Smoking Tobacco: Never Assessed Adolescent Education Answer Date Record ed Getting School Help Needed Not on file 09/02 Sex and Gender Information Value Date Recorded Sex Assigned at Not on file Gender Identity Not on file Sexual Orientation Not on file Plan of Treatment Health Maintenance Due Date Last Done Comments ADVANCE CARE PLANNING 1961 ANNUAL REVIEW OF HM ORDERS 1961 CT COLONOGRAPHY 1961 FIT 1961 FLEX SIG 1961 GLUCOSE 1961 sDNA (Cologuard) 1961 HIV SCREENING 1976 HEPATITIS C SCREENING 10/14/1979 PAP 1982 LIPID 2001 ZOSTER IMMUNIZATION (1 of 2) 10/14/2011 DTAP/TDAP/TD IMMUNIZATION (2 - Td or Tdap) 11/13/2020 11/13/2010 RSV VACCINE ( & 60+) (1 - 1-dose 60+ series) 2021 YEARLY PREVENTIVE VISIT 02/02/2022 02/02/2021 COVID-19 Vaccine (1 - 2022-24 season) 2023 COLONOSCOPY 07/17/2023 07/17/2013 COLORECTAL CANCER SCREENING 07/17/2023 PHQ-2 (once per calendar year) 2023 INFLUENZA VACCINE (Season Ended) 2024 05/25/2020, 04/17/2020 MAMMO SCREENING 06/16/2024 06/16/2022, 05/20, 07/02/2020, Additional history exists HPV IMMUNIZATION Aged Out No longer e ligible based on patient's age to complete this topic IPV IMMUNIZATION Aged Out No longer e ligible based on patient's age to complete this topic MENINGITIS IMMUNIZATION Aged Out No l onger eligible based on patient's age to complete this topic Pneumococcal Vaccine: Pediatrics (0 to 5 Years) and At-Risk Patients (6 to 64 Years) Aged Out No longer eligible based on patient's age to complete this topic RSV MONOCLONAL ANTIBODY Aged Out No l onger eligible based on patient's age to complete this topic Procedures Procedure Name Priority Date/Time Associated Diagnosis Comments MA SCREENING BILATERAL W/ CATALINA Routine 06/16/2022 10:01 AM ROTARY FURNACE TENDER from Last 3 Months or Most Recently Relevant to Health Maintenance Care Teams Funds Transfer Clerk Relationship Specialty Start Date End Date Poppy Beasley MD [facility] [address] [place] [address] PCP - General Family Medicine 09/06/23
--- OUTSIDE RECORDS SUMMARY | 2023-12-31 17:09 | XMS_ITS | Referral Summary ---
Author Organization [facility] Address [address] [place] [address] Care Team Providers Care Conservation Agent Name Role Phone Poppy Beasley MD Primary Care Provider +1- [phone] Encounters Date Type Department Care Team Description 11/08/2023 Travel 11/08/2023 9:52 AM CDT - 11/08/2023 11:59 PM CDT Hospital Encounter [facility] Cardiac and Pulmonary Rehabilitation [address] [place] [phone] Binh Trent MD Discharge Disposition: Home or Self Care 11/04/2023 Travel 11/04/2023 8:55 AM CDT - 11/04/2023 11:59 PM CDT Hospital Encounter [facility] Cardiac and Pulmonary Rehabilitation [address] [place] [phone] Binh Trent MD 2, Rh Cardiac Rehab Discharge Disposition: Home or Self Care 11/02/2023 Travel 11/02/2023 8:51 AM CDT - 11/02/2023 11:59 PM CDT Hospital Encounter [facility] Cardiac and Pulmonary Rehabilitation [address] [place] [phone] Binh Trent MD 2, Rh Cardiac Rehab Discharge Disposition: Home or Self Care 10/31/2023 Travel 10/31/2023 8:54 AM CDT - 10/31/2023 11:59 PM CDT Hospital Encounter [facility] Cardiac and Pulmonary Rehabilitation [address] [phone] Binh Trent MD 2, Rh Cardiac Rehab Discharge Disposition: Home or Self Care 10/28/2023 Travel 10/28/2023 8:51 AM CDT - 10/28/2023 11:59 PM CDT Hospital Encounter [facility] Cardiac and Pulmonary Rehabilitation [address] [phone] Binh Trent MD 2, Rh Cardiac Rehab Discharge Disposition: Home or Self Care 10/26/2023 Travel 10/26/2023 8:53 AM CDT - 10/26/2023 11:59 PM CDT Hospital Encounter [facility] Cardiac and Pulmonary Rehabilitation [address] [phone] Binh Trent MD 2, Rh Cardiac Rehab Discharge Disposition: Home or Self Care 10/24/2023 Travel 10/24/2023 8:53 AM CDT - 10/24/2023 11:59 PM CDT Hospital Encounter [facility] Cardiac and Pulmonary Rehabilitation [address] [phone] Binh Trent MD 2, Rh Cardiac Rehab Discharge Disposition: Home or Self Care 10/21/2023 Travel 10/21/2023 8:52 AM CDT - 10/21/2023 11:59 PM CDT Hospital Encounter [facility] Cardiac and Pulmonary Rehabilitation [address] [phone] Binh Trent MD 2, Rh Cardiac Rehab Discharge Disposition: Home or Self Care 10/19/2023 Travel 10/19/2023 8:53 AM CDT - 10/19/2023 11:59 PM CDT Hospital Encounter [facility] Cardiac and Pulmonary Rehabilitation [address] [phone] Binh Trent MD 2, Rh Cardiac Rehab Discharge Disposition: Home or Self Care 10/17/2023 Travel 10/17/2023 8:52 AM CDT - 10/17/2023 11:59 PM CDT Hospital Encounter [facility] Cardiac and Pulmonary Rehabilitation [address] [place] [address] Binh Trent MD 2, Rh Cardiac Rehab Discharge Disposition: Home or Self Care 10/14/2023 Travel 10/14/2023 8:52 AM CDT - 10/14/2023 11:59 PM CDT Hospital Encounter [facility] Cardiac and Pulmonary Rehabilitation [address] [place] [phone] Binh Trent MD 2, Rh Cardiac Rehab Discharge Disposition: Home or Self Care 10/12/2023 Travel 10/12/2023 8:51 AM CDT - 10/12/2023 11:59 PM CDT Hospital Encounter [facility] Cardiac and Pulmonary Rehabilitation [address] [phone] Binh Trent MD 2, Rh Cardiac Rehab Discharge Disposition: Home or Self Care 10/10/2023 Travel 10/10/2023 8:50 AM CDT - 10/10/2023 11:59 PM CDT Hospital Encounter [facility] Cardiac and Pulmonary Rehabilitation [address] [address] Binh Trent MD 2, Rh Cardiac Rehab Discharge Disposition: Home or Self Care 10/07/2023 Travel 10/07/2023 8:51 AM CDT - 10/07/2023 11:59 PM CDT Hospital Encounter [facility] Cardiac and Pulmonary Rehabilitation [address] [phone] Binh Trent MD 2, Rh Cardiac Rehab Discharge Disposition: Home or Self Care 10/05/2023 Travel 10/05/2023 8:50 AM CDT - 10/05/2023 11:59 PM CDT Hospital Encounter [facility] Cardiac and Pulmonary Rehabilitation [address] [address] Binh Trent MD 2, Rh Cardiac Rehab Discharge Disposition: Home or Self Care 10/03/2023 Travel 10/03/2023 8:53 AM CDT - 10/03/2023 11:59 PM CDT Hospital Encounter [facility] Cardiac and Pulmonary Rehabilitation [address] [place] [phone] Binh Trent MD 2, Rh Cardiac Rehab Discharge Disposition: Home or Self Care 09/30/2023 Travel 09/30/2023 8:51 AM CDT - 09/30/2023 11:59 PM CDT Hospital Encounter [facility] Cardiac [facility] Pulmonary Rehabilitation [address] [phone] Binh Trent MD 2, Rh Cardiac Rehab Discharge Disposition: Home or Self Care from Last 3 Months Social History Tobacco Use Types Packs/Day Years Used Date Smoking Tobacco: Never Assessed Adolescent Education Answer Date Record ed Getting School Help Needed Not on file 09/02 Sex and Gender Information Value Date Recorded Sex Assigned at Not on file Gender Identity Not on file Sexual Orientation Not on file Plan of Treatment Not on file Procedures Procedure Name Priority Date/Time Associated Diagnosis Comments MA SCREENING BILATERAL W/ CATALINA Routine 06/16/2022 10:01 AM PERFORMANCE MAKEUP ARTIST from Last 3 Months or Most Recently Relevant to Health Maintenance Care Teams Conservation Agent Relationship Specialty Start Date End Date Poppy Beasley MD [facility] [address] [place] [address] PCP - General Family Medicine 09/06/23
--- OUTSIDE RECORDS SUMMARY | 2023-12-31 17:10 | XMS_ITS | Encounter Summary ---
Author Organization [facility] Address [address] [place] [address] Care Team Providers Care College Dean Name Role Phone Poppy Beasley MD Primary Care Provider +1- [phone] Encounter Details Date Type Department Care Team (Latest Contact Info) Description 10/17/2023 Travel Social History Tobacco Use Types Packs/Day Years Used Date Smoking Tobacco: Never Assessed Adolescent Education Answer Date Record ed Getting School Help Needed Not on file 09/02 Sex and Gender Information Value Date Recorded Sex Assigned at Not on file Gender Identity Not on file Sexual Orientation Not on file documented as of this encounter Plan of Treatment Not on file documented as of this encounter Visit Diagnoses Not on filedocumented in this encounter Care Teams College Dean Relationship Specialty Start Date End Date Poppy Beasley MD [facility] [address] [place] [address] PCP - General Family Medicine 09/06/23 documented as of this encounter
--- OUTSIDE RECORDS SUMMARY | 2023-12-31 17:10 | XMS_ITS | Encounter Summary ---
Author Organization [facility] Address [address] [place] [address] Care Team Providers Care Barrel Maker Name Role Phone Poppy Beasley MD Primary Care Provider +1- [phone] Encounter Details Date Type Department Care Team (Latest Contact Info) Description 09/23/2023 Travel Social History Tobacco Use Types Packs/Day [...] on filedocumented in this encounter Care Teams Barrel Maker Relationship Specialty Start Date End Date Poppy Beasley MD [facility] [address] [place] [address] PCP - General Family Medicine 09/06/23 documented as of this encounter
--- OUTSIDE RECORDS SUMMARY | 2023-12-31 17:10 | XMS_ITS | Encounter Summary ---
Author Organization [facility] Address [address] [place] [address] Care Team Providers Care Bag Machine Set Up Operator Name Role Phone Poppy Beasley MD Primary Care Provider +1- [phone] Reason for Visit * Rehab Therapy Cardiac Therapy (Routine) - Authorized Specialty Diagnoses / Procedures Referred By Jazmine kim Referred To Contact CARDIAC REHAB Diagnoses triple bypass Chester BRANNON p/f order/recs requested Procedures CARDIAC EVAL [address] [address] Referral ID Status Reason Start Date Expiration Date V isits Requested Visits Authorized [id number] Authorized 09/01/2023 07/17/2024 [id number] Encounter Details Date Type Department Care Team (Latest Contact Info) Description 11/08/2023 9:52 AM CDT - 11/08/2023 11:59 PM CDT Hospital Encounter [facility] Cardiac and Pulmonary Rehabilitation [address] [place] [phone] Binh Trent MD [facility] [address] [place] [address] Discharge Disposition: Home or Self Care Social History Tobacco Use Types Packs/Day Years [...] on filedocumented in this encounter Care Teams Bag Machine Set Up Operator Relationship Specialty Start Date End Date Poppy Beasley MD [facility] [address] [place] [address] PCP - General Family Medicine 09/06/23 documented as of this encounter
--- OUTSIDE RECORDS SUMMARY | 2023-12-31 17:10 | XMS_ITS | Encounter Summary ---
Author Organization [facility] Address [address] [place] [address] Care Team Providers Care Movie Critic Name Role Phone Poppy Beasley MD Primary Care Provider +1- [phone] Reason for Visit * Rehab Therapy Cardiac Therapy (Routine) - Authorized Specialty Diagnoses / Procedures Referred By Jazmine kim Referred To Contact CARDIAC REHAB Diagnoses triple bypass Chester BRANNON p/f order/recs requested Procedures CARDIAC EVAL [address] [address] Referral ID Status Reason Start Date Expiration Date V isits Requested Visits Authorized [id number] Authorized 09/01/2023 07/17/2024 365 [id number] Encounter Details Date Type Department Care Team (Latest Contact Info) Description 10/07/2023 8:51 AM CDT - 10/07/2023 11:59 PM CDT Hospital Encounter [facility] Cardiac and Pulmonary Rehabilitation [address] [place] [address] Binh Trent MD [facility] [address] [place] [address] 2, Rh Cardiac Rehab Discharge Disposition: Home or Self Care Social [...] on filedocumented in this encounter Care Teams Movie Critic Relationship Specialty Start Date End Date Poppy Beasley MD [facility] [address] [place] [address] PCP - General Family Medicine 09/06/23 documented as of this encounter
--- OUTSIDE RECORDS SUMMARY | 2023-12-31 17:10 | XMS_ITS | Encounter Summary ---
Author Organization [facility] Address [address] [place] [address] Care Team Providers Care Manager Of Internal Name Role Phone Poppy Beasley MD Primary Care Provider +1- [phone] Reason for Visit * Rehab Therapy Cardiac Therapy (Routine) - Authorized Specialty Diagnoses / Procedures Referred By Jazmine kim Referred To Contact CARDIAC REHAB Diagnoses triple bypass Chester BRANNON p/f order/recs requested Procedures CARDIAC EVAL [address] [address] Referral ID Status Reason Start Date Expiration Date V isits Requested Visits Authorized [id number] Authorized 09/01/2023 07/17/2024 365 [id number] Encounter Details Date Type Department Care Team (Latest Contact Info) Description 11/04/2023 8:55 AM CDT - 11/04/2023 11:59 PM CDT Hospital Encounter [facility] Cardiac and Pulmonary Rehabilitation [address] [place] [address] Binh Trent MD [facility] [address], [place] [address] 2, Rh Cardiac Rehab Discharge [...] on filedocumented in this encounter Care Teams Manager Of Internal Relationship Specialty Start Date End Date Poppy Beasley MD [facility] [address] [place] [address] PCP - General Family Medicine 09/06/23 documented as of this encounter
--- OUTSIDE RECORDS SUMMARY | 2023-12-31 17:10 | XMS_ITS | Encounter Summary ---
Author Organization [place] Address [address] [place] [address] Care Team Providers Care Sheep Rancher Name Role Phone Poppy Beasley MD Primary Care Provider +1- [phone] Encounter Details Date Type Department Care Team (Latest Contact Info) Description 10/10/2023 Travel Social History Tobacco Use Types Packs/Day [...] on filedocumented in this encounter Care Teams Sheep Rancher Relationship Specialty Start Date End Date Poppy Beasley MD [facility] [address] [place] [address] PCP - General Family Medicine 09/06/23 documented as of this encounter
--- OUTSIDE RECORDS SUMMARY | 2023-12-31 17:10 | XMS_ITS | Encounter Summary ---
Author Organization [place] Address [address] [place] [address] Care Team Providers Care Supervisor Clam Bed Name Role Phone Poppy Beasley MD Primary Care Provider +1- [phone] Encounter Details Date Type Department Care Team (Latest Contact Info) Description 10/19/2023 Travel Social History Tobacco Use Types Packs/Day [...] on filedocumented in this encounter Care Teams Supervisor Clam Bed Relationship Specialty Start Date End Date Poppy Beasley MD [facility] [address] [place] [address] PCP - General Family Medicine 09/06/23 documented as of this encounter
--- OUTSIDE RECORDS SUMMARY | 2023-12-31 17:10 | XMS_ITS | Encounter Summary ---
Author Organization [place] Address [address] [place] [address] Care Team Providers Care Review Assistant Name Role Phone Poppy Beasley MD Primary Care Provider +1- [phone] Reason for Visit * Rehab Therapy Cardiac Therapy (Routine) - Authorized Specialty Diagnoses / Procedures Referred By Jazmine kim Referred To Contact CARDIAC REHAB Diagnoses triple bypass Chester BRANNON p/f order/recs requested Procedures CARDIAC EVAL [address] [address] Referral ID Status Reason Start Date Expiration Date V isits Requested Visits Authorized [id number] Authorized 09/01/2023 07/17/2024 365 365 Encounter Details Date Type Department Care Team (Latest Contact Info) Description 10/24/2023 8:53 AM CDT - 10/24/2023 11:59 PM CDT Hospital Encounter [facility] Cardiac and Pulmonary Rehabilitation [address] [place] [address] Binh Trent MD [facility] [address] [place], [place] [address] 2, Rh Cardiac Rehab Discharge Disposition: Home [...] on filedocumented in this encounter Care Teams Review Assistant Relationship Specialty Start Date End Date Poppy Beasley MD [facility] [address] [place] [address] PCP - General Family Medicine 09/06/23 documented as of this encounter
--- OUTSIDE RECORDS SUMMARY | 2023-12-31 17:10 | XMS_ITS | Encounter Summary ---
Author Organization [place] Address [address] [place] [address] Care Team Providers Care Licensed Marine Engineer Name Role Phone Poppy Beasley MD Primary Care Provider +1- [phone] Reason for Visit * Rehab Therapy Cardiac Therapy (Routine) - Authorized Specialty Diagnoses / Procedures Referred By Jazmine kim Referred To Contact CARDIAC REHAB Diagnoses triple bypass Chester BRANNON p/f order/recs requested Procedures CARDIAC EVAL [address] [address] Referral ID Status Reason Start Date Expiration Date V isits Requested Visits Authorized [id number] Authorized 09/01/2023 07/17/2024 365 365 Encounter Details Date Type Department Care Team (Latest Contact Info) Description 10/03/2023 8:53 AM CDT - 10/03/2023 11:59 PM CDT Hospital Encounter [facility] Cardiac and Pulmonary Rehabilitation [address] [place] [address] Binh Trent MD [facility] [address] [place] [address] 2, Rh Cardiac Rehab Discharge [...] on filedocumented in this encounter Care Teams Licensed Marine Engineer Relationship Specialty Start Date End Date Poppy Beasley MD [facility] [address] [place] [address] PCP - General Family Medicine 09/06/23 documented as of this encounter
--- OUTSIDE RECORDS SUMMARY | 2023-12-31 17:10 | XMS_ITS | Encounter Summary ---
Author Organization [place] Address [address] [place] [address] Care Team Providers Care Electrifier Operator Name Role Phone Poppy Beasley MD Primary Care Provider +1- [phone] Reason for Visit * Rehab Therapy Cardiac Therapy (Routine) - Authorized Specialty Diagnoses / Procedures Referred By Jazmine kim Referred To Contact CARDIAC REHAB Diagnoses triple bypass Chester BRANNON p/f order/recs requested Procedures CARDIAC EVAL [address] [address] Referral ID Status Reason Start Date Expiration Date V isits Requested Visits Authorized [id number] Authorized 09/01/2023 07/17/2024 365 365 Encounter Details Date Type Department Care Team (Latest Contact Info) Description 10/21/2023 8:52 AM CDT - 10/21/2023 11:59 PM CDT Hospital Encounter [facility] Cardiac and Pulmonary Rehabilitation [address] [place] [address] Binh Trent MD [facility] [address] [place] [address] 2, Rh Cardiac Rehab Discharge [...] on filedocumented in this encounter Care Teams Electrifier Operator Relationship Specialty Start Date End Date Poppy Beasley MD [facility] [address] [place] [address] PCP - General Family Medicine 09/06/23 documented as of this encounter
--- OUTSIDE RECORDS SUMMARY | 2023-12-31 17:10 | XMS_ITS | Encounter Summary ---
Author Organization [place] Address [address] [place] [address] Care Team Providers Care Hand Violin Maker Name Role Phone Poppy Beasley MD Primary Care Provider +1- [phone] Reason for Visit * Rehab Therapy Cardiac Therapy (Routine) - Authorized Specialty Diagnoses / Procedures Referred By Jazmine kim Referred To Contact CARDIAC REHAB Diagnoses triple bypass Chester BRANNON p/f order/recs requested Procedures CARDIAC EVAL [address] [address] Referral ID Status Reason Start Date Expiration Date V isits Requested Visits Authorized [id number] Authorized 09/01/2023 07/17/2024 365 365 Encounter Details Date Type Department Care Team (Latest Contact Info) Description 09/23/2023 7:55 AM WATER QUALITY TECHNICIAN - 09/23/2023 11:59 PM WATER QUALITY TECHNICIAN Hospital Encounter [facility] Cardiac and Pulmonary Rehabilitation [address] [address] Binh Trent MD [facility] [address] [place] [address] 1, Rh Cardiac Rehab Discharge Disposition: Home or [...] on filedocumented in this encounter Care Teams Hand Violin Maker Relationship Specialty Start Date End Date Poppy Beasley MD [facility] [address] [place] [address] PCP - General Family Medicine 09/06/23 documented as of this encounter
--- OUTSIDE RECORDS SUMMARY | 2023-12-31 17:10 | XMS_ITS | Encounter Summary ---
Author Organization [place] Address [address] [place] [address] Care Team Providers Care Campus Security Director Name Role Phone Poppy Beasley MD Primary Care Provider +1- [phone] Encounter Details Date Type Department Care Team (Latest Contact Info) Description 10/28/2023 Travel Social History Tobacco Use Types Packs/Day [...] on filedocumented in this encounter Care Teams Campus Security Director Relationship Specialty Start Date End Date Poppy Beasley MD [facility] [address] [place] [address] PCP - General Family Medicine 09/06/23 documented as of this encounter
--- OUTSIDE RECORDS SUMMARY | 2023-12-31 17:10 | XMS_ITS | Encounter Summary ---
Author Organization [place] Address [address] [place] [address] Care Team Providers Care Senior Ui Software Engineer Name Role Phone Poppy Beasley MD Primary Care Provider +1- [phone] Encounter Details Date Type Department Care Team (Latest Contact Info) Description 10/21/2023 Travel Social History Tobacco Use Types Packs/Day [...] on filedocumented in this encounter Care Teams Senior Ui Software Engineer Relationship Specialty Start Date End Date Poppy Beasley MD [facility] [address] [place] [address] PCP - General Family Medicine 09/06/23 documented as of this encounter
--- OUTSIDE RECORDS SUMMARY | 2023-12-31 17:10 | XMS_ITS | Encounter Summary ---
Author Organization [place] Address [address] [place] [address] Care Team Providers Care Acute Care Certified Nursing Assistant Name Role Phone Poppy Beasley MD Primary Care Provider +1- [phone] Encounter Details Date Type Department Care Team (Latest Contact Info) Description 10/03/2023 Travel Social History Tobacco Use Types Packs/Day [...] on filedocumented in this encounter Care Teams Acute Care Certified Nursing Assistant Relationship Specialty Start Date End Date Poppy Beasley MD [facility] [address] [place] [address] PCP - General Family Medicine 09/06/23 documented as of this encounter
--- OUTSIDE RECORDS SUMMARY | 2023-12-31 17:10 | XMS_ITS | Encounter Summary ---
Author Organization [place] Address [address] [place] [address] Care Team Providers Care Counter Former Name Role Phone Poppy Beasley MD Primary Care Provider +1- [phone] Reason for Visit * Rehab Therapy Cardiac Therapy (Routine) - Authorized Specialty Diagnoses / Procedures Referred By Jazmine kim Referred To Contact CARDIAC REHAB Diagnoses triple bypass Chester BRANNON p/f order/recs requested Procedures CARDIAC EVAL [address] [address] Referral ID Status Reason Start Date Expiration Date V isits Requested Visits Authorized [id number] Authorized 09/01/2023 07/17/2024 365 365 Encounter Details Date Type Department Care Team (Latest Contact Info) Description 11/02/2023 8:51 AM CDT - 11/02/2023 11:59 PM CDT Hospital Encounter [facility] Cardiac and Pulmonary Rehabilitation [address] [place] [address] [facility] [address] [place] [address] 2, Rh Cardiac Rehab Discharge [...] on filedocumented in this encounter Care Teams Counter Former Relationship Specialty Start Date End Date Poppy Beasley MD [facility] [address] [place] [address] PCP - General Family Medicine 09/06/23 documented as of this encounter
--- OUTSIDE RECORDS SUMMARY | 2023-12-31 17:10 | XMS_ITS | Encounter Summary ---
Author Organization [place] Address [address] [place] [address] Care Team Providers Care Joint Yarner Name Role Phone Poppy Beasley MD Primary Care Provider +1- [phone] Reason for Visit * Rehab Therapy Cardiac Therapy (Routine) - Authorized Specialty Diagnoses / Procedures Referred By Jazmine kim Referred To Contact CARDIAC REHAB Diagnoses triple bypass Chester BRANNON p/f order/recs requested Procedures CARDIAC EVAL [address] [address] Referral ID Status Reason Start Date Expiration Date V isits Requested Visits Authorized [id number] Authorized 09/01/2023 07/17/2024 365 365 Encounter Details Date Type Department Care Team (Latest Contact Info) Description 09/30/2023 8:51 AM CDT - 09/30/2023 11:59 PM CDT Hospital Encounter [facility] Cardiac and Pulmonary Rehabilitation [address] [place] [address] Binh Trent MD [facility] [address] [place] [address] 2, Rh Cardiac Rehab Discharge [...] on filedocumented in this encounter Care Teams Joint Yarner Relationship Specialty Start Date End Date Poppy Beasley MD [facility] [address] [place] [address] PCP - General Family Medicine 09/06/23 documented as of this encounter
--- OUTSIDE RECORDS SUMMARY | 2023-12-31 17:10 | XMS_ITS | Encounter Summary ---
Author Organization [place] Address [address] [place] [address] Care Team Providers Care Gastrointestinal Technician Name Role Phone Poppy Beasley MD Primary Care Provider +1- [phone] Reason for Visit * Rehab Therapy Cardiac Therapy (Routine) - Authorized Specialty Diagnoses / Procedures Referred By Jazmine kim Referred To Contact CARDIAC REHAB Diagnoses triple bypass Chester BRANNON p/f order/recs requested Procedures CARDIAC EVAL [address] [phone] Referral ID Status Reason Start Date Expiration Date V isits Requested Visits Authorized [id number] Authorized 09/01/2023 07/17/2024 365 365 Encounter Details Date Type Department Care Team (Latest Contact Info) Description 09/26/2023 8:53 AM CDT - 09/26/2023 11:59 PM CDT Hospital Encounter [facility] Cardiac and Pulmonary Rehabilitation [address] [place] [address] Binh Trent MD [facility] [address] [place], [place] [address] 2, Rh Cardiac Rehab Discharge Disposition: Home [...] on filedocumented in this encounter Care Teams Gastrointestinal Technician Relationship Specialty Start Date End Date Poppy Beasley MD [facility] [address] [place] [address] PCP - General Family Medicine 09/06/23 documented as of this encounter
--- OUTSIDE RECORDS SUMMARY | 2023-12-31 17:10 | XMS_ITS | Encounter Summary ---
Author Organization [place] Address [address] [place] [address] Care Team Providers Care Solar Sales Manager Name Role Phone Poppy Beasley MD Primary Care Provider +1- [phone] Reason for Visit * Rehab Therapy Cardiac Therapy (Routine) - Authorized Specialty Diagnoses / Procedures Referred By Jazmine kim Referred To Contact CARDIAC REHAB Diagnoses triple bypass Chester BRANNON p/f order/recs requested Procedures CARDIAC EVAL [address] [address] Referral ID Status Reason Start Date Expiration Date V isits Requested Visits Authorized [id number] Authorized 09/01/2023 07/17/2024 365 365 Encounter Details Date Type Department Care Team (Latest Contact Info) Description 10/05/2023 8:50 AM CDT - 10/05/2023 11:59 PM CDT Hospital Encounter [facility] Cardiac and Pulmonary Rehabilitation [address] [place] [address] Binh Trent MD [facility] [address] [place] [address] 2, Rh Cardiac Rehab Discharge [...] on filedocumented in this encounter Care Teams Solar Sales Manager Relationship Specialty Start Date End Date Poppy Beasley MD [facility] [address] [place] [address] PCP - General Family Medicine 09/06/23 documented as of this encounter
--- OUTSIDE RECORDS SUMMARY | 2023-12-31 17:10 | XMS_ITS | Encounter Summary ---
Author Organization [place] Address [address] [place] [address] Care Team Providers Care Food Mixer Name Role Phone Poppy Beasley MD Primary Care Provider +1- [phone] Encounter Details Date Type Department Care Team (Latest Contact Info) Description 10/24/2023 Travel Social History Tobacco Use Types Packs/Day [...] on filedocumented in this encounter Care Teams Food Mixer Relationship Specialty Start Date End Date Poppy Beasley MD [facility] [address] [place] [address] PCP - General Family Medicine 09/06/23 documented as of this encounter
--- OUTSIDE RECORDS SUMMARY | 2023-12-31 17:10 | XMS_ITS | Encounter Summary ---
Author Organization [place] Address [address] [place] [address] Care Team Providers Care Sales Systems Engineer Name Role Phone Poppy Beasley MD Primary Care Provider +1- [phone] Encounter Details Date Type Department Care Team (Latest Contact Info) Description 10/31/2023 Travel Social History Tobacco Use Types Packs/Day [...] on filedocumented in this encounter Care Teams Sales Systems Engineer Relationship Specialty Start Date End Date Poppy Beasley MD [facility] [address] [place] [address] PCP - General Family Medicine 09/06/23 documented as of this encounter
--- OUTSIDE RECORDS SUMMARY | 2023-12-31 17:10 | XMS_ITS | Encounter Summary ---
Author Organization [place] Address [address] [place] [address] Care Team Providers Care Regional Clinical Director Name Role Phone Poppy Beasley MD Primary Care Provider +1- [phone] Reason for Visit * Rehab Therapy Cardiac Therapy (Routine) - Authorized Specialty Diagnoses / Procedures Referred By Jazmine kim Referred To Contact CARDIAC REHAB Diagnoses triple bypass Chester BRANNON p/f order/recs requested Procedures CARDIAC EVAL [address] [address] Referral ID Status Reason Start Date Expiration Date V isits Requested Visits Authorized [id number] Authorized 09/01/2023 07/17/2024 365 365 Encounter Details Date Type Department Care Team (Latest Contact Info) Description 10/31/2023 8:54 AM CDT - 10/31/2023 11:59 PM CDT Hospital Encounter [facility] Cardiac and Pulmonary Rehabilitation [address] [place] [address] [facility] [address] [place] [address] 2, Rh Cardiac Rehab Discharge [...] on filedocumented in this encounter Care Teams Regional Clinical Director Relationship Specialty Start Date End Date Poppy Beasley MD [facility] [address] [place] [address] PCP - General Family Medicine 09/06/23 documented as of this encounter
--- OUTSIDE RECORDS SUMMARY | 2023-12-31 17:10 | XMS_ITS | Encounter Summary ---
Author Organization [place] Address [address] [place] [address] Care Team Providers Care Lime Kiln And Recausticizing Operator Name Role Phone Poppy Beasley MD Primary Care Provider +1- [phone] Encounter Details Date Type Department Care Team (Latest Contact Info) Description 09/28/2023 Travel Social History Tobacco Use Types Packs/Day [...] on filedocumented in this encounter Care Teams Lime Kiln And Recausticizing Operator Relationship Specialty Start Date End Date Poppy Beasley MD [facility] [address] [place] [address] PCP - General Family Medicine 09/06/23 documented as of this encounter
--- OUTSIDE RECORDS SUMMARY | 2023-12-31 17:10 | XMS_ITS | Encounter Summary ---
Author Organization [place] Address [address] [place] [address] Care Team Providers Care Pilling Machine Operator Name Role Phone Poppy Beasley MD Primary Care Provider +1- [phone] Encounter Details Date Type Department Care Team (Latest Contact Info) Description 11/08/2023 Travel Social History Tobacco Use Types Packs/Day [...] on filedocumented in this encounter Care Teams Pilling Machine Operator Relationship Specialty Start Date End Date Poppy Beasley MD [facility] [address] [place] [address] PCP - General Family Medicine 09/06/23 documented as of this encounter
--- OUTSIDE RECORDS SUMMARY | 2023-12-31 17:10 | XMS_ITS | Encounter Summary ---
Author Organization [place] Address [address] [place] [address] Care Team Providers Care Launch Operator Name Role Phone Poppy Beasley MD Primary Care Provider +1- [phone] Reason for Visit * Rehab Therapy Cardiac Therapy (Routine) - Authorized Specialty Diagnoses / Procedures Referred By Jazmine kim Referred To Contact CARDIAC REHAB Diagnoses triple bypass Chester BRANNON p/f order/recs requested Procedures CARDIAC EVAL [address] [address] Referral ID Status Reason Start Date Expiration Date V isits Requested Visits Authorized [id number] Authorized 09/01/2023 07/17/2024 365 365 Encounter Details Date Type Department Care Team (Latest Contact Info) Description 10/10/2023 8:50 AM CDT - 10/10/2023 11:59 PM CDT Hospital Encounter [facility] Cardiac and Pulmonary Rehabilitation [address] [place] [address] Binh Trent MD [facility] [address], [place] [address] 2, Rh Cardiac Rehab Discharge [...] on filedocumented in this encounter Care Teams Launch Operator Relationship Specialty Start Date End Date Poppy Beasley MD [facility] [address] [place] [address] PCP - General Family Medicine 09/06/23 documented as of this encounter
--- OUTSIDE RECORDS SUMMARY | 2023-12-31 17:10 | XMS_ITS | Encounter Summary ---
Author Organization [place] Address [address] [place] [address] Care Team Providers Care Credit Reference Clerk Name Role Phone Poppy Beasley MD Primary Care Provider +1- [phone] Encounter Details Date Type Department Care Team (Latest Contact Info) Description 10/12/2023 Travel Social History Tobacco Use Types Packs/Day [...] on filedocumented in this encounter Care Teams Credit Reference Clerk Relationship Specialty Start Date End Date Poppy Beasley MD [facility] [address] [place] [address] PCP - General Family Medicine 09/06/23 documented as of this encounter
--- OUTSIDE RECORDS SUMMARY | 2023-12-31 17:10 | XMS_ITS | Encounter Summary ---
Author Organization [place] Address [address] [place] [address] Care Team Providers Care Registration Rep Name Role Phone Poppy Beasley MD Primary Care Provider +1- [phone] Reason for Visit * Rehab Therapy Cardiac Therapy (Routine) - Authorized Specialty Diagnoses / Procedures Referred By Jazmine kim Referred To Contact CARDIAC REHAB Diagnoses triple bypass Chester BRANNON p/f order/recs requested Procedures CARDIAC EVAL [address] [address] Referral ID Status Reason Start Date Expiration Date V isits Requested Visits Authorized [id number] Authorized 09/01/2023 07/17/2024 365 365 Encounter Details Date Type Department Care Team (Latest Contact Info) Description 09/21/2023 8:52 AM GENERAL MANAGER FARM - 09/21/2023 11:59 PM GENERAL MANAGER FARM Hospital Encounter [facility] Cardiac and Pulmonary Rehabilitation [address] [place] [address] Binh Trent MD [facility] [address] [address] 2, Rh Cardiac Rehab Discharge Disposition: Home [...] on filedocumented in this encounter Care Teams Registration Rep Relationship Specialty Start Date End Date Poppy Beasley MD [facility] [address] [place] [address] PCP - General Family Medicine 09/06/23 documented as of this encounter
--- OUTSIDE RECORDS SUMMARY | 2023-12-31 17:10 | XMS_ITS | Encounter Summary ---
Author Organization [place] Address [address] [place] [address] Care Team Providers Care Supervisor Telephone Information Name Role Phone Poppy Beasley MD Primary Care Provider +1- [phone] Reason for Visit * Rehab Therapy Cardiac Therapy (Routine) - Authorized Specialty Diagnoses / Procedures Referred By Jazmine kim Referred To Contact CARDIAC REHAB Diagnoses triple bypass Chester BRANNON p/f order/recs requested Procedures CARDIAC EVAL [address] [address] Referral ID Status Reason Start Date Expiration Date V isits Requested Visits Authorized [id number] Authorized 09/01/2023 07/17/2024 365 365 Encounter Details Date Type Department Care Team (Latest Contact Info) Description 10/17/2023 8:52 AM CDT - 10/17/2023 11:59 PM CDT Hospital Encounter [facility] Cardiac and Pulmonary Rehabilitation [address] [place] [address] Binh Trent MD [facility] [address] [place] [address] 2, Rh Cardiac Rehab Discharge [...] filedocumented in this encounter Care Teams Supervisor Telephone Information Relationship Specialty Start Date End Date Poppy Beasley MD [facility] [address] [place] [address] PCP - General Family Medicine 09/06/23 documented as of this encounter
--- OUTSIDE RECORDS SUMMARY | 2023-12-31 17:10 | XMS_ITS | Encounter Summary ---
Author Organization [place] Address [address] [place] [address] Care Team Providers Care Shuttle Fixer Name Role Phone Poppy Beasley MD Primary Care Provider +1- [phone] Reason for Visit * Rehab Therapy Cardiac Therapy (Routine) - Authorized Specialty Diagnoses / Procedures Referred By Jazmine kim Referred To Contact CARDIAC REHAB Diagnoses triple bypass Chester BRANNON p/f order/recs requested Procedures CARDIAC EVAL [address] [phone] Referral ID Status Reason Start Date Expiration Date V isits Requested Visits Authorized [id number] Authorized 09/01/2023 07/17/2024 365 365 Encounter Details Date Type Department Care Team (Latest Contact Info) Description 10/28/2023 8:51 AM CDT - 10/28/2023 11:59 PM CDT Hospital Encounter [facility] [address] [place] [address] Binh Trent MD [facility] [address] [place] [address] 2, Rh Cardiac Rehab Discharge [...] on filedocumented in this encounter Care Teams Shuttle Fixer Relationship Specialty Start Date End Date Poppy Beasley MD [facility] [address] [place] [address] PCP - General Family Medicine 09/06/23 documented as of this encounter
--- OUTSIDE RECORDS SUMMARY | 2023-12-31 17:10 | XMS_ITS | Encounter Summary ---
Author Organization [place] Address [address] [place] [address] Care Team Providers Care Budget Director Name Role Phone Poppy Beasley MD Primary Care Provider +1- [phone] Reason for Visit * Rehab Therapy Cardiac Therapy (Routine) - Authorized Specialty Diagnoses / Procedures Referred By Jazmine kim Referred To Contact CARDIAC REHAB Diagnoses triple bypass Chester BRANNON p/f order/recs requested Procedures CARDIAC EVAL [address] [phone] Referral ID Status Reason Start Date Expiration Date V isits Requested Visits Authorized [id number] Authorized 09/01/2023 07/17/2024 365 365 Encounter Details Date Type Department Care Team (Latest Contact Info) Description 10/14/2023 8:52 AM CDT - 10/14/2023 11:59 PM CDT Hospital Encounter [facility] Cardiac and Pulmonary Rehabilitation [address] [place] [address] Binh Trent MD [facility] [address] [place] [address] 2, Rh Cardiac Rehab Discharge [...] on filedocumented in this encounter Care Teams Budget Director Relationship Specialty Start Date End Date Poppy Beasley MD [facility] [address] [place] [address] PCP - General Family Medicine 09/06/23 documented as of this encounter
--- OUTSIDE RECORDS SUMMARY | 2023-12-31 17:10 | XMS_ITS | Encounter Summary ---
Author Organization [place] Address [address] [place] [address] Care Team Providers Care Wardrobe Mistress Name Role Phone Poppy Beasley MD Primary Care Provider +1- [phone] Encounter Details Date Type Department Care Team (Latest Contact Info) Description 10/07/2023 Travel Social History Tobacco Use Types Packs/Day [...] on filedocumented in this encounter Care Teams Wardrobe Mistress Relationship Specialty Start Date End Date Poppy Beasley MD [facility] [address] [place] [address] PCP - General Family Medicine 09/06/23 documented as of this encounter
--- OUTSIDE RECORDS SUMMARY | 2023-12-31 17:10 | XMS_ITS | Encounter Summary ---
Author Organization [place] Address [address] [place] [address] Care Team Providers Care Stock Pitcher Name Role Phone Poppy Beasley MD Primary Care Provider +1- [phone] Encounter Details Date Type Department Care Team (Latest Contact Info) Description 11/04/2023 Travel Social History Tobacco Use Types Packs/Day [...] on filedocumented in this encounter Care Teams Stock Pitcher Relationship Specialty Start Date End Date Poppy Beasley MD [facility] [address] [place] [address] PCP - General Family Medicine 09/06/23 documented as of this encounter
--- OUTSIDE RECORDS SUMMARY | 2023-12-31 17:10 | XMS_ITS | Encounter Summary ---
Author Organization [place] Address [address] [place] [address] Care Team Providers Care Horse Exerciser Name Role Phone Poppy Beasley MD Primary Care Provider +1- [phone] Reason for Visit * Rehab Therapy Cardiac Therapy (Routine) - Authorized Specialty Diagnoses / Procedures Referred By Jazmine kim Referred To Contact CARDIAC REHAB Diagnoses triple bypass Chester BRANNON p/f order/recs requested Procedures CARDIAC EVAL [address] [phone] Referral ID Status Reason Start Date Expiration Date V isits Requested Visits Authorized [id number] Authorized 09/01/2023 07/17/2024 365 365 Encounter Details Date Type Department Care Team (Latest Contact Info) Description 10/26/2023 8:53 AM CDT - 10/26/2023 11:59 PM CDT Hospital Encounter [facility] Cardiac and Pulmonary Rehabilitation [address] [place] [address] Binh Trent MD [facility] [address] [place], [place] [address] 2, Rh Cardiac Rehab Discharge Disposition: Home [...] on filedocumented in this encounter Care Teams Horse Exerciser Relationship Specialty Start Date End Date Poppy Beasley MD [facility] [address] [place] [address] PCP - General Family Medicine 09/06/23 documented as of this encounter
--- OUTSIDE RECORDS SUMMARY | 2023-12-31 17:10 | XMS_ITS | Encounter Summary ---
Author Organization [place] Address [address] [place] [address] Care Team Providers Care Aquatics Assistant Department Head Name Role Phone Poppy Beasley MD Primary Care Provider +1- [phone] Encounter Details Date Type Department Care Team (Latest Contact Info) Description 11/02/2023 Travel Social History Tobacco Use Types Packs/Day [...] on filedocumented in this encounter Care Teams Aquatics Assistant Department Head Relationship Specialty Start Date End Date Poppy Beasley MD [facility] [address] [place] [address] PCP - General Family Medicine 09/06/23 documented as of this encounter
--- OUTSIDE RECORDS SUMMARY | 2023-12-31 17:10 | XMS_ITS | Encounter Summary ---
Author Organization [place] Address [address] [place] [address] Care Team Providers Care Crm Marketing Specialist Name Role Phone Poppy Beasley MD Primary Care Provider +1- [phone] Reason for Visit * Rehab Therapy Cardiac Therapy (Routine) - Authorized Specialty Diagnoses / Procedures Referred By Jazmine kim Referred To Contact CARDIAC REHAB Diagnoses triple bypass Chester BRANNON p/f order/recs requested Procedures CARDIAC EVAL [address] [phone] Referral ID Status Reason Start Date Expiration Date V isits Requested Visits Authorized [id number] Authorized 09/01/2023 07/17/2024 365 365 Encounter Details Date Type Department Care Team (Latest Contact Info) Description 10/12/2023 8:51 AM CDT - 10/12/2023 11:59 PM CDT Hospital Encounter [facility] Cardiac and Pulmonary Rehabilitation [address] [place] [address] Binh Trent MD [facility] [address] [place] [address] 2, Rh Cardiac Rehab Discharge [...] on filedocumented in this encounter Care Teams Crm Marketing Specialist Relationship Specialty Start Date End Date Poppy Beasley MD [facility] [address] [place] [address] PCP - General Family Medicine 09/06/23 documented as of this encounter
--- OUTSIDE RECORDS SUMMARY | 2023-12-31 17:10 | XMS_ITS | Encounter Summary ---
Author Organization [place] Address [address] [place] [address] Care Team Providers Care Skip Tender Name Role Phone Poppy Beasley MD Primary Care Provider +1- [phone] Encounter Details Date Type Department Care Team (Latest Contact Info) Description 09/26/2023 Travel Social History Tobacco Use Types Packs/Day [...] on filedocumented in this encounter Care Teams Skip Tender Relationship Specialty Start Date End Date Poppy Beasley MD [facility] [address] [place] [address] PCP - General Family Medicine 09/06/23 documented as of this encounter
--- OUTSIDE RECORDS SUMMARY | 2023-12-31 17:10 | XMS_ITS | Encounter Summary ---
Author Organization [place] Address [address] [place] [address] Care Team Providers Care Electrical Unit Rebuilder Name Role Phone Poppy Beasley MD Primary Care Provider +1- [phone] Reason for Visit * Rehab Therapy Cardiac Therapy (Routine) - Authorized Specialty Diagnoses / Procedures Referred By Jazmine kim Referred To Contact CARDIAC REHAB Diagnoses triple bypass Chester BRANNON p/f order/recs requested Procedures CARDIAC EVAL [address] [address] Referral ID Status Reason Start Date Expiration Date V isits Requested Visits Authorized [id number] Authorized 09/01/2023 07/17/2024 365 365 Encounter Details Date Type Department Care Team (Latest Contact Info) Description 09/28/2023 8:55 AM CDT - 09/28/2023 11:59 PM CDT Hospital Encounter [facility] Cardiac and Pulmonary Rehabilitation [address] [place] [address] Binh Trent MD [facility] [address] [address] 2, Rh Cardiac Rehab Discharge [...] on filedocumented in this encounter Care Teams Electrical Unit Rebuilder Relationship Specialty Start Date End Date Poppy Beasley MD [facility] [address] [place] [address] PCP - General Family Medicine 09/06/23 documented as of this encounter
--- OUTSIDE RECORDS SUMMARY | 2023-12-31 17:10 | XMS_ITS | Encounter Summary ---
Author Organization [place] Address [address] [place] [address] Care Team Providers Care Mining Support Worker Name Role Phone Poppy Beasley MD Primary Care Provider +1- [phone] Reason for Visit * Rehab Therapy Cardiac Therapy (Routine) - Authorized Specialty Diagnoses / Procedures Referred By Jazmine kim Referred To Contact CARDIAC REHAB Diagnoses triple bypass Chester BRANNON p/f order/recs requested Procedures CARDIAC EVAL [address] [phone] Referral ID Status Reason Start Date Expiration Date V isits Requested Visits Authorized [id number] Authorized 09/01/2023 07/17/2024 365 365 Encounter Details Date Type Department Care Team (Latest Contact Info) Description 10/19/2023 8:53 AM CDT - 10/19/2023 11:59 PM CDT Hospital Encounter [facility] Cardiac and Pulmonary Rehabilitation [address] [place] [address] Binh Trnet MD [facility] [address] [place], [place] [address] 2, Rh Cardiac Rehab Discharge Disposition: Home [...] on filedocumented in this encounter Care Teams Mining Support Worker Relationship Specialty Start Date End Date Poppy Beasley MD [facility] [address] [place] [address] PCP - General Family Medicine 09/06/23 documented as of this encounter
--- OUTSIDE RECORDS SUMMARY | 2023-12-31 17:10 | XMS_ITS | Encounter Summary ---
Author Organization [place] Address [address] [place] [address] Care Team Providers Care Artist Representative Name Role Phone Poppy Beasley MD Primary Care Provider +1- [phone] Encounter Details Date Type Department Care Team (Latest Contact Info) Description 10/26/2023 Travel Social History Tobacco Use Types Packs/Day [...] on filedocumented in this encounter Care Teams Artist Representative Relationship Specialty Start Date End Date Poppy Beasley MD [facility] [address] [place] [address] PCP - General Family Medicine 09/06/23 documented as of this encounter
--- OUTSIDE RECORDS SUMMARY | 2023-12-31 17:10 | XMS_ITS | Encounter Summary ---
Author Organization [place] Address [address] [place] [address] Care Team Providers Care Clothing Pattern Preparer Name Role Phone Poppy Beasley MD Primary Care Provider +1- [phone] Encounter Details Date Type Department Care Team (Latest Contact Info) Description 09/30/2023 Travel Social History Tobacco Use Types Packs/Day [...] on filedocumented in this encounter Care Teams Clothing Pattern Preparer Relationship Specialty Start Date End Date Poppy Beasley MD [facility] [address] [place] [address] PCP - General Family Medicine 09/06/23 documented as of this encounter
--- OUTSIDE RECORDS SUMMARY | 2023-12-31 17:10 | XMS_ITS | Encounter Summary ---
Author Organization [place] Address [address] [place] [address] Care Team Providers Care Laborer Turkey Farm Name Role Phone Poppy Beasley MD Primary Care Provider +1- [phone] Encounter Details Date Type Department Care Team (Latest Contact Info) Description 10/05/2023 Travel Social History Tobacco Use Types Packs/Day [...] on filedocumented in this encounter Care Teams Laborer [place] Relationship Specialty Start Date End Date Poppy Beasley MD [facility] [address] [place] [address] PCP - General Family Medicine 09/06/23 documented as of this encounter
--- OUTSIDE RECORDS SUMMARY | 2023-12-31 17:10 | XMS_ITS | Encounter Summary ---
Author Organization [place] Address [address] [place] [address] Care Team Providers Care Jail Keeper Name Role Phone Poppy Beasley MD Primary Care Provider +1- [phone] Encounter Details Date Type Department Care Team (Latest Contact Info) Description 10/14/2023 Travel Social History Tobacco Use Types Packs/Day [...] on filedocumented in this encounter Care Teams Jail Keeper Relationship Specialty Start Date End Date Poppy Beasley MD [facility] [address] [place] [address] PCP - General Family Medicine 09/06/23 documented as of this encounter
--- OUTSIDE RECORDS SUMMARY | 2023-12-31 17:11 | XMS_ITS | Clinical Summary ---
Author Organization [facility] Address [address] [place] [address] Care Team Providers Care Veterinary X Ray Operator Name Role Phone Unavailable Primary Care Provider [...] for each transition of care or referral. [place] Family History Medical History Relation Name Comments [...] 1961 Hep C Screening (Preventive Services) 1961 HIV Screening (Preventive Services) 1977 Adult Preventive Visit 10/14/1979 Cholesterol 2006 Zoster/Shingles (1 of 2) 10/14/2011 DTaP/Tdap/Td (2 - Tdap) 11/13/2020 11/13/2010 COVID-19 Vaccine ( season) 2023 Mammogram 06/16/2023 06/16/2022, 06/17, 04/10/2019, Additional history exists Influenza (Season Ended) 2024 05/25/2020, 07/2019 HepA Aged Out No longer eligi ble [...] JJ W CAD Routine 06/16/2022 10:01 AM LAY OUT MACHINE OPERATOR Visit for screening mammogram from Last 3 Months or Most Recently Relevant to Health Maintenance Results * MM Mammogram Screening Bilat W 3D Jj W CAD (06/16/2022 10:01 AM LAY OUT MACHINE OPERATOR) Anatomical Region Laterality Modality Breast Bilateral Mammography Impressions 06/17/2022 7:55 AM LAY OUT MACHINE OPERATOR : ACR BI-RADS Category 1: Negative RECOMMENDATION: Follow Up Imaging in 12 months - Bilateral The results and recommendations of this examination will be communicated to the patient. Narrative 06/17/2022 7:55 AM LAY OUT MACHINE OPERATOR MM MAMMOGRAM SCREENING BILAT W 3D JJ [...]
--- OUTSIDE RECORDS SUMMARY | 2023-12-31 17:11 | XMS_ITS | Clinical Summary ---
Author Organization [facility] [employer] [facility] [place], [place] [address] Care Team Providers Care Infant Childcare Provider Name Role Phone Poppy Beasley MD Primary Care Provider +1- [phone] Allergies No known active allergies Medications Medication Sig Dispensed Refills Start Date End Date Status multivitamins-mine rals-lutein (Multivitamin 50 Plus) tab tablet Take 1 Tablet by mouth once daily. Active calcium carbonate/vitamin D3 (CALCIUM 600 WITH VITAMIN D3 ORAL) Take 2 Tablets by mouth once daily. Active aspirin chewable 81 mg chewable tablet Chew 81 mg by mouth once daily in the evening. Active atorvastatin (LIPITOR) 40 mg tabletIndications: Coronary artery disease of [place] heart with stable angina pectoris, unspecified vessel or lesion type (HC) Take 1 Tablet (40 mg) by mouth at bedtime. 30 Tablet 3 07/27/2023 Active cholecalciferol (VITAMIN D3) 1,000 unit tablet Take 1,000 units by mouth once daily. Active acetaminophen (TYLENOL EXTRA STRGTH) 500 mg tabletIndications: S/P CABG x 3 Take 2 Tablets (1,000 mg) by mouth every 6 hours if needed for Pain. Max acetaminophen dose: 4000mg in 24 hrs. 08/27/2023 Active metoprolol succinate (Toprol XL) 50 mg sustained-release tabletIndications: S/P CABG x 3 Take 1 Tablet (50 mg) by mouth once daily. 90 Tablet 3 09/20/2023 Active Active Problems Problem Noted Date Diagnosed Date [...] Encounters Date Type Department Care Team Description 12/29/2023 Telephone [facility] [address] [facility] [place] [address] Lea Harper NP Results from Last 3 Months Immunizations Name Administration Dates Next Due Tdap 11/13/2010 Family History Medical History Relation Name Comments Diabetes Father Heart Disease Maternal Grandmother Relation Name Status Comments Father Maternal Grandmother Social History Tobacco Use Types Packs/Day Years Used Date Smoking Tobacco: Never Alcohol Use Standard Drinks/Week Comments Not Currently 2.5 (1 standard drink = 0.6 oz p ure alcohol) Social Connections Answer Date Recorded Frequency of Communication with Friends and Fami ly Not on file 06/03/2023 Sex and Gender Information Value Date Recorded Sex Assigned at Not on file Gender Identity Not on file Sexual Orientation Not on file Obstetrics History Last Filed Vital Signs Vital Sign Reading Time Taken Comments Blood Pressure 124/78 09/20/2023 11:24 AM PROJECT DEVELOPMENT LEADER Pulse 65 09/20/2023 11:24 AM PROJECT DEVELOPMENT LEADER Temperature 36.6 ??C (97.9 ??F) 08/27/2023 1 2:00 PM PROJECT DEVELOPMENT LEADER Respiratory Rate 14 08/27/2023 12:0 0 PM PROJECT DEVELOPMENT LEADER Oxygen Saturation 96% 09/20/2023 11: 24 AM PROJECT DEVELOPMENT LEADER Inhaled Oxygen Concentration - - Weight 63.4 kg (139 lb 12.8 oz) 024 11:24 AM PROJECT DEVELOPMENT LEADER Height 160 cm (5' 2.99) 09/20/2023 11: 24 AM PROJECT DEVELOPMENT LEADER Body Mass Index 24.77 09/20/2023 11:24 AM PROJECT DEVELOPMENT LEADER Plan of Treatment Upcoming Encounters Date Type Department Care Team (Late st Contact Info) Description 02/08/2024 2:30 PM CDT Office Visit [facility] [address] [address] Darleen Johnston MD [address] [address] Health Maintenance Due Date Last Done Comments Pneumococcal series for age 6-64 (1 of 2 - PCV) 10/14/1967 Depression screening for age 12+ 1973 HIV for age 15-65 1976 Hepatitis C screening for ag e 18-79 10/14/1979 Zoster (shingles) series for age 50+ (1 of 2) 10/14/2011 Pap test for age 21-65 01/15/2013 01/15/2010 Mammogram for age 45-75 08/18/2013 08/18/19 13 (Completed outside of [facility]), 01/15/2010 Tetanus booster 11/13/2020 11/13/2010 Colonoscopy through age 75 10/16/202210/16 (Completed outside of [facility]) COVID-19 vaccine series ( season) 2023 Influenza for age 50-64 03/18/2024 BMI (ht and wt on same day) for age 18+ 09/19/2024 09/20/2023 Lipids for age 45-75 08/20/2028 08/20/2023, 12/23/2011, 11/13/2010, Additional history exists Tdap Completed 11/13/2010 Procedures Procedure Name Priority Date/Time Associated Diagnosis Comments EXTENDED HOLTER Routine 12/29/2023 12:00 AM CDT Atrial fibrillation, unspecified type (HC) LIPID PANEL Add On 08/20/2023 9:09 AM PROJECT DEVELOPMENT LEADER from Last 3 Months or Most Recently Relevant to Health Maintenance Results * ZIO PATCH XT - weekly to monthly symptoms. (12/29/2023 12:00 AM CDT) Lea Harper NP CARDIAC SERVICES ORD * (ABNORMAL) LIPID PANEL (08/20/2023 9:09 AM PROJECT DEVELOPMENT LEADER) CHOLESTEROL,TOTAL 118 100 - 199 mg/dL 08/20/2023 4:57 PM PROJECT DEVELOPMENT LEADER [facility] Comment: Cholesterol, Total Reference Ranges Desirable <200 mg/dL Borderline 200-239 mg/dL High >=240 mg/dL TRIGLYCERIDES 208(H) <150 mg/dL 08/20/2023 4:57 PM PROJECT DEVELOPMENT LEADER [facility] HDL CHOLESTEROL 35(L) >40 mg/dL 4:57 PM PROJECT DEVELOPMENT LEADER [facility] NON-HDL CHOLESTEROL 83 <145 mg/dl 08/20/2023 4:57 PM PROJECT DEVELOPMENT LEADER [facility] CHOL/HDL RATIO 3.37 <4.50 08/20/2023 4:57 PM PROJECT DEVELOPMENT LEADER [facility] LDL CHOLESTEROL 41 <=130 mg/dL 08/20/2023 4:57 PM PROJECT DEVELOPMENT LEADER [facility] VLDL CHOLESTEROL 42(H) <=30 mg/dL 08/20/2023 4:57 PM PROJECT DEVELOPMENT LEADER [facility] Blood BLOOD SPECIMEN / Unknown Non-Lab Venipuncture / Unknown 08/20/2023 9:09 AM PROJECT DEVELOPMENT LEADER 08/20/2023 9:17 AM PROJECT DEVELOPMENT LEADER David [facility]SC[facility] CHEMISTR[facility] [address] [address], from Last 3 Months or Most Recently Relevant to Health Maintenance Advance Directives * Full Code (Latest Code Status on File) Date Activated Date Inactivated Comments 08/21/2023 11:01 AM 08/27/2023 5:29 PM Question Answer Comments Code Status Discussion: Reviewed Preferences * Full Code Date Activated Date Inactivated Comments 08/18/2023 6:11 AM 08/21/2023 11:01 AM Question Answer Comments Code Status Discussion: Unable to Assess Preferences, Provider to review later * Full Code Date Activated Date Inactivated Comments 07/27/2023 7:30 AM 07/27/2023 2:56 PM Question Answer Comments Code Status Discussion: Reviewed Preferences Care Teams Infant Childcare Provider Relationship Specialty Start Date End Date Poppy Beasley MD [address], [place] [address] PCP - General Emergency Medicine 06/23/23
--- OUTSIDE RECORDS SUMMARY | 2023-12-31 17:11 | XMS_ITS | Data Portability ---
Author Organization [place] [facility], [id number] Address [address] [place] [address] Assessment No assessment recorded. Plan of Treatment Reminders Order Date Submit Date Provider Last Modified By Organization Details Last Modified Time Details Appointments None recorded. Lab None recorded. Referral None recorded. Procedures None recorded. Surgeries None recorded. Imaging None recorded. Medication Orders Valtrex 500 mg tablet jvotel [facility], [address] [place] [address], [address], 20:22:02 Patient TargetsNo targets recorded. Patient Instructions Encounter Date Encounter Id Patient Instructions Last Modified By Organization Details Last Modified Time 02/02/2021 [id number] -If madai pantoja does not work prison, patient can call for 0.025 estradiol patch Valtrex has been refilled -Patient up to date on mammogram and colonoscopy -Discussed the variability of when menopause symptoms will subside. - Recommend mammogram annually. - Encouraged regular exercise. - Discussed calcium, vitamin D, and weight bearing exercise for bone health. - Discussed osteoporosis screening guidelines. - Encouraged patient to continue care with a PCP to manage non-RURAL CARRIER concerns. - Due to current cervical cancer screening guidelines, pt no longer needs paps. Seen with Cliff shay Not available 02/02/2021 11:05:32 Reason for Referral None Reported. Results Created Date Observation Date Name Description Value Unit Range Abnormal Flag LastModifiedBy Organization Detail LastModifiedTime 07/02/2007/02/2020 MAMMO , scree brooke, bilat eral No observ ation record ed. [facility] [address] [place], [address], 07/03/2020 09:51:14 Result Notes None recorded. Problems Name Status Onset Date Resolution Date Notes Provider Name and Address Organization Details Recorded Time Atypical glandular cells on cervical Papanicolaou smear Active Not Available [facility] 02/22/2020 14:11:36 Cyst of ovary Active Zoe Apolinar(TERM) null, [place] [facility] 12/03/2020 17:25:46 Hyperlipidemia Active Ani a Apolinar(TERM) null, [place] [facility] 12/03/2020 17:25:59 Problem Notes None recorded. Procedures Surgical History Date Name Laterality Status Provider Name and Address Organization Details Recorded Time 07/02/20 20 Date of Last Mammogram completed Zoe Apolinar(TERM) null, [place] [facility] 07/03/2020 09:50:44 02/29/20 17 Date of Last Pap Smear completed Zoe Apolinar(TERM) [place], [place] [facility] 12/03/2020 17:17:34 07/18/19 14 Date of Last Colonoscopy completed Zoe Apolinar(TERM) [place], [place] [facility] 12/03/2020 17:17:01 02/16/20 13 hysterectomy NOS completed Not Available [facility] 01/2020 07:38:20 endometrial ablation completed Not Available [facility] 02/22/2020 07:38:20 salpingectomy NOS completed Not Available [facility] 02/22/2020 07:38:20 Removal of ovary(s) completed Not Available [facility] 02/22/2020 07:38:20 ligation of bilateral fallopian tubes completed Not Available [facility] 02/22/2020 07:38:20 gynecological laparoscopy NEC completed Not Available [facility] 02/22/2020 07:38:20 Imaging Results Imaging Date Name Status LastModified by Organiz ation Details LastModified Time 07/02/2020 MAMMO, screening, bilateral completed [facility] [address] [place], [address], 07/03/2020 09:51:14 Procedure Notes None recorded. Medical Equipment None Reported. Allergies No known drug allergies Medications Name Sig Start Date Stop Date Status Note LastModified by Organization Details LastModified Time valacyclovi r 500 mg tablet Take 1 tablet twice a day by oral route as needed for 3 days. active Not Available Not Available No t Available simvastatin 40 mg tablet 02/02 completed Not Available Not Available Not Available Climara 0.025 mg/24 hr transdermal patch Apply 1 patch every week by transderm al route. active Not Available Not Available No t Available estradiol 0.5 mg tablet TAKE 1 TABLET DAILY EXCEPT SUNDAYS active last JAY Not Available Not Available Not Available calcium active Not Available Not Avail able Not Available Fish Oil 02/02 completed Not Available Not Available Not Available Baby Aspirin active Not Available Not Available Not Available Multi Vitamin active Not Available Not Available Not Available Vitals Date Recorded Body mass index (BMI) Heart rate Body height Body weight Systolic blood pressure Diastolic blood pressure Provider Name and Address Organization Details Last Updated DateTime 0 25.52 kg/m2 78 /min 163.677 6 cm 93935.4 4787 g 122 mm[Hg] 74 mm[Hg] Not Available [facility] 0 15:48:17 Date Recorded Body height Body mass index (BMI) Heart rate Body weight Systolic blood pressure Diastolic blood pressure Provider Name and Address Organization Details Last Updated DateTime 6 157.581 6 cm 26.89 kg/m2 67 /min 11028.0 7839 g 148 mm[Hg] 86 mm[Hg] Not Available [facility] 0 15:48:17 Date Recorded Body mass index (BMI) Heart rate Body height Body weight Systolic blood pressure Diastolic blood pressure Provider Name and Address Organization Details Last Updated DateTime 5 27.5 kg/m2 66 /min 159.410 4 cm 17746.2 2498 g 118 mm[Hg] 72 mm[Hg] Not Available [facility] 0 15:48:17 Date Recorded Body height Heart rate Body weight Body mass index (BMI) Systolic blood pressure Diastolic blood pressure Provider Name and Address Organization Details Last Updated DateTime 7 158.800 8 cm 56 /min 39203.4 0972 g 28.08 kg/m2 125 mm[Hg] 81 mm[Hg] Not Available [facility] 0 15:48:17 Date Recorded Body height Body weight Heart rate Body mass index (BMI) Systolic blood pressure Diastolic blood pressure Provider Name and Address Organization Details Last Updated DateTime 8 158.800 8 cm 34753.6 3261 g 66 /min 27.54 kg/m2 126 mm[Hg] 74 mm[Hg] Not Available [facility] 0 15:48:17 Date Recorded Body weight Body mass index (BMI) Body height Heart rate Systolic blood pressure Diastolic blood pressure Provider Name and Address Organization Details Last Updated DateTime 1 56829.8 g 26.7 kg/m2 158.12 cm 58 /min 122 mm[Hg] 76 mm[Hg] Zoe Jiang(TERM ) [facility] 1 10:07:25 Social History Question Answer Notes LastModified by Organizat ion Details LastModified Time Tobacco Smoking Status Never Smoker Zoe Jiang(TERM) null, [facility] 12/03/2020 17:25:11 Do You Have An Advance Directive? No No Health Care Directive Information not available 02/22/2020 What Is Your Level Of Alcohol Consumption? Occasional Alcohol Information not available 12/03/2020 Is Blood Transfusion Acceptable In An Emergency? Yes Information not available 12/03/2020 What Is Your Level Of Caffeine Consumption? None Caffeine Information not available 12/03/2020 How Much Tobacco Do You Chew? None Information not available 12/03/2020 Are You Currently Employed? Yes Information not available 12/03/2020 What Type Of Diet Are You Following? REGULAR No Particular Diet Information not available 02/22/2020 Do You Or Have You Ever Used E-cigarettes Or Vape? Never Used Electronic Cigarettes Information not available 12/03/2020 History Of Domestic Violence No Denies Domestic Violence Information not available 02/22/2020 Spouse/Partner s Name Jamey Information not available 02/02/2021 Marital Status Caffeine Informatio n not available 02/22/2020 What Was The Date Of Your Most Recent Tobacco Screening? 02/02/2021 Information not available 02/02/2021 Performs Monthly Self-breast Exam? Yes Monthly Self Breast Exam-Occasion al Information not available 02/22/2020 Seat Belts Used Routinely Yes Information not available 12/03/2020 Are You Sexually Active? Yes Currently Sexually Active Information not available 02/22/2020 Are You Passively Exposed To Smoke? No Information not available 12/03/2020 Do You Or Have You Ever Used Smokeless Tobacco? Never Used Smokeless Tobacco Information not available 12/03/2020 How Much Tobacco Do You Smoke? No Information not available 12/03/2020 How Many Years Have You Smoked Tobacco? 0 Information not available 12/03/2020 Sex: Female Functional Status Question Answer Note LastModified by Organizat ion Details LastModified Time What is your exercise level? Moderate Heavy Amount of Exercise (4 or more times weekly) Information not available 02/02/2021 Mental Status None recorded. Family History Relationship Description Onset Age of this Age Resolved Age Notes Maternal Grandmother Primary malignant neoplasm of uterine adnexa Ovary Neoplasm, Malignant Maternal Grandmother Osteoporosis Osteoporosis Father Disorder of body system Diabetes Father Hyperlipidemia High Cholesterol Mother Hyperlipidemia High Cholesterol Maternal Grandfather Alzheimer's disease Alzheime r's/Demen tia Sister Alcohol dependence C hemical or Alcohol Dependency Medical History Condition Response Cardiology- High Cholesterol Gynecological History Statement/Question Response History of Endometriosis N History of Abnormal PAP N History of Recurrent Ovarian Cysts Y Date of Last Mammogram 07/02/2020 Date of LMP Menstrual Cycle Length (days) 28 Date of Last Diabetes Screening 07/18/19 20 History of Infertility N Date of last bone density Sexually Active Y Age at Menarche: 14 Date of Last Colonoscopy 07/18/2013 History of Sexually Transmitted Infectio n N HPV Vaccine Not Applicable Current Control Method Hysterectom y History of Gestational Diabetes N History of Fibroids N Date of Last Pap Smear 02/28/2017 Date of Last Cholesterol Screening 07/18 Obstetrics History GPAL:G 4 P 3 0 1 2 Type Value Multiple Births 0 Full Term 3 Induced 0 Spontaneous 1 Premature 0 Living 2 Ectopics 0 Total 4 Immunizations Vaccine Type Date Status Provider Name and Address Organization Details Recorded Time Influenza, split virus, quadrivalent, preservative 04/17/2020 completed Zoe Jiang(TERM) null, [place] [facility] 02/02/2021 10:03:16 Past Encounters Encounter ID Performer Location Encounter Start Date Encounter Closed Date Diagnosis/Indication Diagnosis SNOMED-CT Code [id number] Jazzy Pino TERMED [id number] [facility] [address] [facility] [place] [id number] 02/02/2021 09:46:27 02/03/2021 15:16:23 Gynecologic examination [id number] Menopausal syndrome 1237 59553 Ulcer of mouth [id number] Health Concerns Section Related Observation LastModified by Organization Detai ls LastModified Time None Recorded Concern Status LastModified by Organization Details LastModified Time None Recorded Advance Directives Directive N: No Health Care Directive Payers Encounter Date Sequence Insurance Name Policy Number Policy Jewell Covered Member ID Jewell Member ID Guarantor Name 02/02/2021 1 [facility] [id number] Angela Cutler [id number] Angela Cutler Notes Date Note Type Note Provider Name and Address Organization Details Recorded Time 02/02/2021 text/html HPI Notes: Rosaliaua l Postmenopausal ([facility]) Reported by patient. Patient Relationship To Practice: established patient Current Medical History: no active medical problems; no recent surgeries or hospitalizations Relevant Family History: family history of ovarian cancer; no family history of breast cancer; no family history of uterine cancer; no family history of colon cancer; no family history of blood clots/DVT Menopausal Symptoms: Present: mild HRT: current HRT regimen: continuous Vaginal Bleeding: no Sexually Active: Yes: spouse STI Screen: declines Health/Prevention: Exercise: yes; Breast Self Exam: yes; Seat Belt Use: yes; Tobacco Use: no; Safe at home: yes Mammogram: up-to-date; 07/02/2020 Pap Smear +/- HPV Cotesting: due; 02/28/2017 Thyroid/Lipid Screening: due; 2018 Colonoscopy: up-to-date; 2013 Bone Density Study: not applicable Patient has: Primary Care Physician: Notes: Triglyceride levels have been trending down and normal after tapering herself off of estrogen Hot flashes started shortly after taper - so pt started Estroven 2 weeks ago which has helped Has not had any dribbling after Viveve procedure & is very happy with it. Pt requested refill of valtrex - uses intermittently for occ cold sores. Has 6 of her 30 pills left. Pt recently planned a constitution party for her parents 80th birthdays and anniversary. Lot s of stress and hoping there will be less now. Jazzy Pino TERMED null, [place] [facility] 02/02/2021 20:24:32 OBGyn Episode Ob Episode Information Episode Created Date Number of Fetuses Patient Bloodtype Patient rh Status Prepregnancy Weight lbs Domestic Partner Domestic Partner Phone Father Name Park Aide Status 12/04/19 21 1 CLOSED Fetus Data First Name Last Name Admitted to NICU Weight (g) Sex Living Outcome Pediatric Complications Fetus ID Race Codes Race Delivery Type 3175.14 4 M Full Term [id number] Herminio Calculation Initial Herminio Date Initial Exam Date Initial Exam Provider Initial Ultrasound Date Last Menstrual Period Date Ultra Sound Weeks Gestation 0 Eighteen To Twenty Week Herminio Update Ultra Sound Date Fundal Height At Umbil Quickening Date Ultra Sound Latest Weeks Gestation Final Herminio Confirmed By Final Herminio Confirmed Date Final Herminio Date Ultra Sound Latest Days Gestation 0 0 Menstrual History Last Menstrual Date Menses Monthly On Bcp Conception Prior Menses Frequency Hcg Plus Date Menarche Onset Age Delivery Information Delivery Date Delivery Type Labor Anesthesia Weeks Gestation Incision Type Labor Labor Length Hrs Delivered By Post Complications Tubal Sterilization Discharge Date Comments 9 Discharge Information Feeding Method Contraceptive Method Maternal HG B and HCT Levels Ob Episode Information Episode Created Date Number of Fetuses Patient Bloodtype Patient rh Status Prepregnancy Weight lbs Domestic Partner Domestic Partner Phone Father Name Park Aide Status 12/04/19 21 1 CLOSED Fetus Data First Name Last Name Admitted to NICU Weight (g) Sex Living Outcome Pediatric Complications Fetus ID Race Codes Race Delivery Type 3373.36 3704 F Full Term [id number] Herminio Calculation Initial Herminio Date Initial Exam Date Initial Exam Provider Initial Ultrasound Date Last Menstrual Period Date Ultra Sound Weeks Gestation 0 Eighteen To Twenty Week Herminio Update Ultra Sound Date Fundal Height At Umbil Quickening Date Ultra Sound Latest Weeks Gestation Final Herminio Confirmed By Final Herminio Confirmed Date Final Herminio Date Ultra Sound Latest Days Gestation 0 0 Menstrual History Last Menstrual Date Menses Monthly On Bcp Conception Prior Menses Frequency Hcg Plus Date Menarche Onset Age Delivery Information Delivery Date Delivery Type Labor Anesthesia Weeks Gestation Incision Type Labor Labor Length Hrs Delivered By Post Complications Tubal Sterilization Discharge Date Comments 5 Discharge Information Feeding Method Contraceptive Method Maternal HG B and HCT Levels Ob Episode Information Episode Created Date Number of Fetuses Patient Bloodtype Patient rh Status Prepregnancy Weight lbs Domestic Partner Domestic Partner Phone Father Name Park Aide Status 12/04/19 21 1 CLOSED Fetus Data First Name Last Name Admitted to NICU Weight (g) Sex Living Outcome Pediatric Complications Fetus ID Race Codes Race Delivery Type 3259.96 5704 M Full Term [id number] Herminio Calculation Initial Herminio Date Initial Exam Date Initial Exam Provider Initial Ultrasound Date Last Menstrual Period Date Ultra Sound Weeks Gestation 0 Eighteen To Twenty Week Herminio Update Ultra Sound Date Fundal Height At Umbil Quickening Date Ultra Sound Latest Weeks Gestation Final Herminio Confirmed By Final Herminio Confirmed Date Final Herminio Date Ultra Sound Latest Days Gestation 0 0 Menstrual History Last Menstrual Date Menses Monthly On Bcp Conception Prior Menses Frequency Hcg Plus Date Menarche Onset Age Delivery Information Delivery Date Delivery Type Labor Anesthesia Weeks Gestation Incision Type Labor Labor Length Hrs Delivered By Post Complications Tubal Sterilization Discharge Date Comments 2 Discharge Information Feeding Method Contraceptive Method Maternal HG B and HCT Levels
== END 2023-12-27 13:00 | disposition home or self-care (01) ==
LOC: NFLDREF 12-31 17:08
PROVIDERS: PCP Emergency Medicine; Referring Provider Emergency Medicine; Visit Provider Family Medicine
DX: N39.0 Urinary tract infection, site not specified (principal); N30.00 Acute cystitis without hematuria; B00.2 Herpesviral gingivostomatitis and pharyngotonsillitis
CPT/HCPCS: 87086

== ENCOUNTER 2024-02-28 09:15 | Outpatient (CLI) | payer OTHER, SELFPAY ==
--- OUTSIDE RECORDS SUMMARY | 2024-02-28 09:18 | XMS_ITS | Clinical Summary ---
Author Organization [facility] Address [address] [place] [address] Care Team Providers Care Client Resolution Specialist Name Role Phone Unavailable Primary Care Provider [...] for each transition of care or referral. 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 Narrative 06/17/2022 7:55 AM [employer]PER[employer] MM MAMMOGRAM SCREENING BILAT W 3D JJ [...]
--- OUTSIDE RECORDS SUMMARY | 2024-02-28 09:18 | XMS_ITS | Clinical Summary ---
Author Organization [facility] Address [place], [place] [address] Care Team Providers Care Motor Pool Clerk Name Role Phone Poppy Beasley MD Primary Care Provider [phone]- [phone] Allergies No known active allergies Medications Medication [...] 40 mg tabletIndications: Coronary artery disease of [place] heart with stable angina pectoris, unspecified vessel [...] Encounters Date Type Department Care Team Description 02/16/2024 Telephone [facility] [address] [facility] [address] [place] [phone] Darleen Johnston MD SBE Prophylaxis? 02/08/2024 2:30 PM CDT Office Visit [facility] at [address] [address] Darleen Johnston MD Consult 02/08/2024 Travel 12/29/2023 Telephone [facility] [address] [place] [address] eLa Harper, LIDYA Results from Last 3 Months Immunizations Name [...] Sign Reading Time Taken Comments Blood Pressure 112/60 02/08/2024 2:51 PM CDT Pulse 70 02/08/2024 2:51 PM CDT Temperature 36.6 ??C (97.9 ??F) 08/27/2023 12:[address] Respiratory Rate 14 08/27/2023 12:00 PM RAPID EXTRACTOR OPERATOR Oxygen Saturation 100% 02/08/2024 2:51 PM CDT Inhaled Oxygen Concentration - - Weight 61.3 kg (135 lb 3.2 oz) 02/08/2024 2:51 P M CDT Height 160 cm (5' 2.99) 09/20/2023 11:24 AM RAPID EXTRACTOR OPERATOR Body Mass Index 23.96 09/20/2023 11:24 AM RAPID EXTRACTOR OPERATOR Plan of Treatment Health Maintenance Due Date [...] 45-75 08/18/2013 08/18/19 13 (Completed outside of [facility]), 01/15/2010 Tetanus booster 11/13/2020 11/13/2010 Colonoscopy through age 75 10/16/202210/16 (Completed outside of [facility]) COVID-19 vaccine series (2022- season) 2023 Influenza for age 50-64 03/18/2024 BMI (ht and wt on same day) for age 18+ 09/19/2024 09/20/2023 Lipids for age 45-75 08/20/2028 08/20/2023, 12/23/2011, 11/13/2010, Additional history exists Tdap Completed 11/13/2010 Procedures Procedure Name Priority Date/Time Associated Diagnosis Comments EXTENDED HOLTER Routine 12/29/2023 12:00 AM CDT Atrial fibrillation, unspecified type (HC) LIPID PANEL Add On 08/20/2023 9:09 AM RAPID EXTRACTOR OPERATOR from Last 3 Months or Most Recently Relevant to Health Maintenance Results * ZIO PATCH XT - weekly to monthly symptoms. (12/29/2023 12:00 AM CDT) Lea Harper NP [facility] ORD * (ABNORMAL) LIPID PANEL (08/20/2023 9:09 AM RAPID EXTRACTOR OPERATOR) CHOLESTEROL,TOTAL 118 100 - 199 mg/dL 08/20/2023 4:57 PM RAPID EXTRACTOR OPERATOR [facility] Comment: Cholesterol, Total Reference Ranges Desirable <200 mg/dL Borderline 200-239 mg/dL High >=240 mg/dL TRIGLYCERIDES 208(H) <150 mg/dL 08/20/2023 4:57 PM RAPID EXTRACTOR OPERATOR [facility] HDL CHOLESTEROL 35(L) >40 mg/dL 4:57 PM RAPID EXTRACTOR OPERATOR [facility] NON-HDL CHOLESTEROL 83 <145 mg/dl 08/20/2023 4:57 PM RAPID EXTRACTOR OPERATOR [facility] CHOL/HDL RATIO 3.37 <4.50 08/20/2023 4:57 PM RAPID EXTRACTOR OPERATOR [facility] LDL CHOLESTEROL 41 <=130 mg/dL 08/20/2023 4:57 PM RAPID EXTRACTOR OPERATOR [facility] VLDL CHOLESTEROL 42(H) <=30 mg/dL 08/20/2023 4:57 PM RAPID EXTRACTOR OPERATOR [facility] Blood BLOOD SPECIMEN / Unknown Non-Lab Venipuncture / Unknown 08/20/2023 9:09 AM RAPID EXTRACTOR OPERATOR 08/20/2023 9:17 AM RAPID EXTRACTOR OPERATOR David OSCAR CHEMISTRY [facility] [address] [place] [address], from Last 3 Months or Most Recently [...] Code Status Discussion: Reviewed Preferences Care Teams Motor Pool Clerk Relationship Specialty Start Date End Date Poppy Beasley MD [address] [place] [address] PCP - General Emergency Medicine 06/23/23
--- OUTSIDE RECORDS SUMMARY | 2024-02-28 09:18 | XMS_ITS | Referral Summary ---
Author Organization [facility] Address [address] [place] [address] Care Team Providers Care Communications Media Professor Name Role Phone Poppy Beasley MD Primary Care Provider [phone]- [phone] Social History Tobacco Use Types Packs/Day Years [...] BILATERAL W/ CATALINA Routine 06/16/2022 10:01 AM CAR RENTAL SERVICE ATTENDANT from Last 3 Months or Most Recently Relevant to Health Maintenance Care Teams Communications Media Professor Relationship Specialty Start Date End Date Poppy Beasley MD [facility] [address] [place] [address] PCP - General Family Medicine 09/06/23
--- OUTSIDE RECORDS SUMMARY | 2024-02-28 09:18 | XMS_ITS | Data Portability ---
Author Organization [place] - [employer], [id number] Address [address] [facility] [address] [place] [address] Assessment No assessment recorded. Plan of Treatment Reminders Order Date Submit Date Provider Last Modified By Organization Details Last Modified Time Details Appointments None recorded. Lab None recorded. Referral None recorded. Procedures None recorded. Surgeries None recorded. Imaging None recorded. Medication Orders Valtrex 500 mg tablet 021 [id number] [employer] [facility] [facility], [address] [place] [address], [id number], 20:22:02 Patient TargetsNo targets recorded. 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 - Due to current cervical cancer screening guidelines, pt no longer needs paps. Seen with Cliff shay Not available 02/02/2021 11:05:32 Reason for Referral None Reported. Problems Name Status Onset Date Resolution Date Notes Provider Name and Address Organization Details Recorded Time Atypical glandular cells on cervical Papanicolaou smear Active Not Available [facility] 02/22/2020 14:11:36 Cyst of ovary Active Zoe Apolinar(TERM) null, [place] [facility] 12/03/2020 17:25:46 Hyperlipidemia Active Ani a Apolinar(TERM) null, [place] [facility] 12/03/2020 17:25:59 Problem Notes None recorded. Procedures Surgical History Date Name Laterality Status Provider Name and Address Organization Details Recorded Time 07/02/20 20 Date of Last Mammogram completed Zoe Apolinar(TERM) null, [place] [facility] 07/03/2020 09:50:44 02/29/20 17 Date of Last Pap Smear completed Zoe Apolinar(TERM) [place], [place] [facility] [facility] 12/03/2020 17:17:34 07/18/19 14 Date of [facility] [facility] 12/03/2020 17:17:01 02/16/20 13 hysterectomy NOS completed Not Available [facility] 01/2020 07:38:20 endometrial ablation completed Not Available [facility] 02/22/2020 07:38:20 salpingectomy NOS completed Not Available [facility] 02/22/2020 07:38:20 Removal of ovary(s) completed Not Available [facility] 02/22/2020 07:38:20 ligation of bilateral fallopian tubes completed Not Available [facility] 02/22/2020 07:38:20 gynecological laparoscopy NEC completed Not Available [facility] 02/22/2020 07:38:20 Imaging Results None recorded. Procedure Notes None recorded. Medical Equipment None [...] Available Not Available Vitals Date Recorded Body weight Body mass index (BMI) Body height Heart rate Systolic blood pressure Diastolic blood pressure Provider Name and Address Organization Details Last Updated DateTime 1 97848.8 g 26.7 kg/m2 158.12 cm 58 /min 122 mm[Hg] 76 mm[Hg] Zoe Jiang(TERM ) [facility] - [employer] 10:07:25 Social History Question Answer Notes LastModified by Organizat ion Details LastModified Time Tobacco Smoking Status Never Smoker Zoe Jiang(TERM) null, [place] - [employer] 12/03/2020 17:25:11 Do You Have An Advance [...] Tobacco? 0 Information not available 12/03/2020 Sex: Unknown Functional Status Question Answer Note LastModified by [...] completed Zoe Jiang(TERM) null, [place] [facility] 02/02/2021 10:03:16 Past Encounters Encounter ID Performer Location Encounter Start Date Encounter Closed Date Diagnosis/Indication Diagnosis SNOMED-CT Code [id number] Jazzy Galantesolomon TERMED [id number] CLARISA_ [id number] [address] [facility] [address] [place] [id number] 02/02/2021 09:46:27 02/03/2021 15:16:23 Gynecologic examination 76209018 Menopausal syndrome 1237 [id number] Ulcer of mouth [id number] Health Concerns Section Related Observation LastModified by Organization Detai ls LastModified Time None Recorded Concern Status LastModified by Organization Details LastModified Time None Recorded Advance Directives Directive N: No Health Care Directive Payers Encounter Date Sequence Insurance Name Policy Number Policy Jewell Covered Member ID Jewell Member ID Guarantor Name 02/02/2021 1 [employer] [id number] Angela Cutler [id number] Angela Cutler Notes Date Note Type Note Provider Name and Address Organization Details Recorded Time 02/02/2021 text/html HPI Notes: Gabe Cross ([facility]) Reported by patient. Patient Relationship To [...] 30 pills left. Pt recently planned a republican for her parents 80th birthdays and anniversary. Lot s of stress and hoping there will be less now. [place] Justice - [employer]PL[employer]ANCE [employer]CH[employer]IC 02/02/2021 20:24:32 OBGyn Episode Ob Episode Information Episode Created Date Number of Fetuses Patient Bloodtype Patient rh Status Prepregnancy Weight lbs Domestic Partner Domestic Partner Phone Father Name Physicist [place] Status 12/04/19 21 1 CLOSED Fetus Data First Name Last Name Admitted to NICU Weight (g) Sex Living Outcome Pediatric Complications Fetus ID Race Codes Race Delivery Type 3175.14 4 M Full Term 10754 Herminio Calculation Initial Herminio Date Initial Exam [...] Domestic Partner Domestic Partner Phone Father Name Physicist [place] Status 12/04/19 21 1 CLOSED Fetus Data First Name Last Name Admitted to NICU Weight (g) Sex Living Outcome Pediatric Complications Fetus ID Race Codes Race Delivery Type 3373.36 3704 F Full Term 58658 Herminio Calculation Initial Herminio Date Initial Exam [...] Domestic Partner Domestic Partner Phone Father Name Physicist [place] Status 12/04/19 21 1 CLOSED Fetus Data First Name Last Name Admitted to NICU Weight (g) Sex Living Outcome Pediatric Complications Fetus ID Race Codes Race Delivery Type 3259.96 5704 M Full Term 53107 Herminio Calculation Initial Herminio Date Initial Exam [...]
--- OUTSIDE RECORDS SUMMARY | 2024-02-28 09:18 | XMS_ITS | Clinical Summary ---
Author Organization [facility] Address [address] [place] [address] Care Team Providers Care Campaign Associate Name Role Phone Poppy Beasley MD Primary Care Provider [phone] Social History Tobacco Use Types Packs/Day Years [...] (once per calendar year) 2023 INFLUENZA VACCINE (#1) 2024 05/25/2020, 2019 MAMMO SCREENING 06/16/2024 06/16/2022, 05/20, 07/02/2020, Additional [...] BILATERAL W/ CATALINA Routine 06/16/2022 10:01 AM GAS METER [place] from Last 3 Months or Most Recently Relevant to Health Maintenance Care Teams Campaign Associate Relationship Specialty Start Date End Date Popyp Beasley MD [facility] [address] [place] [address] PCP - General Family Medicine 09/06/23
--- NOTE | 2024-02-28 10:25 | W.ANESCHARGE ---
Anesthesia Charges Start Date/Time Anesthesia Start Date: 02/28/24 Anesthesia Start Time: 10:02 Stop Date/Time Anesthesia Stop Date: 02/28/24 Anesthesia Stop Time: 10:30
--- NOTE | 2024-02-28 10:31 | W.ANESCHARGE ---
Anesthesia Charges Start Date/Time Anesthesia Start Date: 02/28/24 Anesthesia Start Time: 10:02 Stop Date/Time Anesthesia Stop Date: 02/28/24 Anesthesia Stop Time: 10:30
== END 2024-02-28 09:16 | disposition home or self-care (01) ==
LOC: OP CLINIC 09:15
PROVIDERS: PCP Emergency Medicine; Visit Provider Surgery
DX: Z12.11 Encounter for screening for malignant neoplasm of colon (principal); K63.5 Polyp of colon; K57.30 Diverticulosis of large intestine without perforation or abscess without bleeding
CPT/HCPCS: 00811; 45385; 88305; J2704